=== PATIENT | female | born 1980 | race Caucasian/White ===

== ENCOUNTER 2018-08-29 20:06 | Emergency (ER) | payer MEDICAID, SELFPAY ==
[2018-08-29 20:07] VITALS: BP 152/96; PULSE 97; RESP 18; TEMP 36.3; O2SAT 100; BMI 20.2
--- NOTE | 2018-08-29 20:25 | CT_ITS ---
STUDY: CT ABDOMEN AND PELVIS WITHOUT CONTRAST REASON FOR EXAM: Female, 38 years old. Bilateral lower abdominal pain. History of pancreatitis, endometriosis and hysterectomy. RADIATION DOSAGE (If Supplied By Facility): CTDIvol = ( 6.08 ) mGy, DLP = ( 273.25 ) mGycm TECHNIQUE: Transaxial images were obtained from the dome of the diaphragm to the symphysis pubis without oral contrast, and without intravenous contrast. Sagittal and coronal images were reconstructed. Individualized dose optimization techniques were used for this CT. COMPARISON: None. FINDINGS: Lung bases: Unremarkable. Heart: Unremarkable. Liver: Unremarkable. Gallbladder/biliary ducts: Unremarkable. Pancreas: Unremarkable. Spleen: Unremarkable. Adrenal glands: Unremarkable. Kidneys/ureters/bladder: Distended urinary bladder. No abnormal urinary bladder wall thickening. Nondilated ureters. Minimal bilateral extrarenal pelvis. Symmetric bilateral noncontrast renal parenchyma. Uterus/adnexa/prostate: Hysterectomy. Adnexal regions appear physiologic. Large bowel/small bowel: Moderate constipation. No acute large bowel or small bowel process. Appendix: Unremarkable (axial image 100 series 2). Gastroesophageal junction/stomach: Unremarkable. Retroperitoneum/lymph nodes: No intra-abdominal free air. No ascites. No pathologically enlarged lymph nodes. Vascular: Unremarkable. Osseous structures: Minimal degenerative change. No acute process. Subcutaneous/soft tissues: Small fat-containing umbilical hernia. No acute process. CT/Abdomen/Pelvis without Cont IMPRESSION: No acute intra-abdominal/pelvic findings Moderate constipation Electronically Signed: Jesus Conteh DO at 21:26 EST Tel , Service support ,
--- NOTE | 2018-08-29 20:26 | ED.VISSUMM ---
- ER Visit Summary Date of Service: 08/29/18 Chief Complaint: Abdominal pain History of Present Illness: The patient is a 38 F who presents with abdominal pain that began today. Patient states her pain feels similar to prior episodes of pancreatitis. Patient states the pancreatitis was related to alcohol use and possibly the sludge in her gallbladder. Patient states her last drink was 4 weeks ago. Patient states the pain is constant and sharp. Patient states the pain is worse after eating. Patient states the pain radiates into her back. Patient admits to some nausea and vomiting. Patient states she had 3 episodes of vomiting today. Patient denies any hematemesis or coffee-ground emesis. Physical Examination: Vital signs are stable. Patient is afebrile. Patient is in no acute distress. Oral mucosa is pink and moist. Neck is supple. Trachea is midline. There is no JVD noted. Heart was regular rate and rhythm. Lungs are clear and equal bilateral. Abdomen is soft. Bowel sounds are normal. There is epigastric and right upper quadrant tenderness. There is no rebound or guarding noted. Skin is warm dry. Cranial nerves II through XII are intact. There are no focal motor or sensory deficits noted. The remaining physical exam is within normal limits. Test Results: CBC, comprehensive metabolic profile, lipase, and urinalysis were obtained and were all within normal limits. CT scan of the abdomen and pelvis was obtained. There is no acute intra-abdominal process noted. Emergency Department Course and Treatment: Patient was given IV fluids, Zofran, and morphine here. Patient was instructed to start with a bland diet and advance as tolerated. Patient was instructed to follow-up with her primary care physician in 5-7 days. Patient understood and was agreeable with the plan. All questions were answered. Disposition: Discharge home Impression: Epigastric abdominal pain This note was generated with [employer] dictation software. It may contain incorrect words, spelling, and punctuation that were not noted in review of the chart prior to signing ED Disposition - Plan for ED Patient: Disposition: Home or Assisted Living Diagnosis: Epigastric abdominal pain Instructions: ED Abdominal Pain Unkn Cause Referrals: NOT,DEFINED [NON-STAFF] - 3-5 Days
[2018-08-29] MEDS: 0.9% Normal Saline 1,000 ML 1000 ML IV (20:34)
[2018-08-29 20:35] LABS: Bacteria 0 SEEN /hpf (None Seen); Mucous, Urine 0 SEEN /hpf (<or=2+); Red Blood Cells-Urine 0 SEEN /hpf (0-5); Squamous Epithelial Cells - UA 0 SEEN /hpf (5-10); White Blood Cells 0 SEEN /hpf (0-5)
[2018-08-29] MEDS: Ondansetron 4 MG/2 ML Vial IV (20:35)
[2018-08-29] MEDS: Morphine 4 MG/ML Syringe IV ×2 (20:35→21:48)
[2018-08-29 20:37] LABS: Color, Urine Straw (Yellow); Glucose, Dipstick Normal (Normal); Ketone-Dipstick Negative (Negative); Leukocyte Esterase-Dipstick Negative /ul (Negative); Nitrite-Dipstick Negative (Negative); Occult Blood-Urine Negative /ul (Negative); Protein-Dipstick Negative (Negative); Urine Bilirubin Dipstick Negative (Negative); Urine Clarity Clear (Clear); Urine Urobilinogen Normal (Normal)
[2018-08-29 20:39] LABS: Absolute Lymphocyte Count 2.33 X10^3/ul (0.83-4.51); Basophil# 0.04 X10^3/uL; Basophil% 0.6 % (0-1); Eosinophils% 2.9 % (0-5); Hematocrit 39.3 % (37-47); Hemoglobin 12.9 g/dl (12.0-15.0); Lymphocyte # 2.33 X10^3/ul (4.0); Lymphocyte % 33.9 % (19-41); Mean Corp Hgb Conc 32.8 g/gl (32-36); Mean Corpuscular Hgb 28.6 pg (27.0-32.0); Mean Corpuscular Volume 87.1 fL (81-99); Mean Platelet Vol. 8.7 fl (6.2-12.0); Monocyte# 0.28 X10^3/uL; Monocyte% 4.1 % (0-10); Neutrophil # 4.02 X10^3/uL (2.7-7.7); Neutrophil % 58.4 % (47-70); POSITIVE COUNT NO; POSITIVE DIFFERENTIAL NO; POSITIVE MORPHOLOGY NO; Platelet Count 271 K/mm3 (150-450); RBC Distribution Width CV 14.5 % (11.6-14.6); Red Blood Count 4.51 M/mm3 (4.2-5.4); White Blood Count 6.9 K/mm3 (4.4-11.0)
[2018-08-29 21:00] LABS: Albumin, Serum 4.3 g/dL (3.2-5.0); BUN 9 mg/dL (7-18); BUN/Creat Ratio 8.5 RATIO (10-20); Creatinine, Serum 1.06 mg/dL (0.55-1.02); EST Glomerular Filtration Rate 61 mL/min (>60); Est Glom Filt Rate - Afr Amer 74 mL/min (>60); Estimated Creatinine Clearance 67.94 ml/min; Glucose 84 mg/dL (74-106); Protein, Total 7.7 g/dL (6.4-8.2)
[2018-08-29 21:01] LABS: ALB/GLOB Ratio 1.3 RATIO (0.9-2.4); AST(SGOT) 25 U/L (15-37); Alanine Aminotransfer ALT/SGPT 20 U/L (13-56); Alkaline Phosphatase 83 U/L (45-117); Anion Gap 6 (5-15); Calcium,Total 8.9 mg/dL (8.5-10.1); Chloride 102 mmol/L (98-107); Globulin 3.4 g/dL (2.2-4.2); Lipase 130 U/L (73-393); Potassium 4.3 mmol/L (3.5-5.1); Sodium Level 135 mmol/L (136-145)
[2018-08-29 22:26] VITALS: BP 125/78; PULSE 79; RESP 18; O2SAT 100
== END 2018-08-29 22:27 | disposition home or self-care (01) ==
PROVIDERS: Emergency Provider Emergency Medicine
DX: R10.13 Epigastric pain (principal); R11.2 Nausea with vomiting, unspecified; M54.9 Dorsalgia, unspecified; Z72.0 Tobacco use; Z79.899 Other long term (current) drug therapy; Z87.19 Personal history of other diseases of the digestive system; Z87.442 Personal history of urinary calculi
CPT/HCPCS: 74176; 80053; 81001; 83690; 85025; 96361; 96374; 96375; 96376; 99284; J7030; A4216; J2405

== ENCOUNTER 2018-08-31 20:06 | Emergency (ER) | payer MEDICAID, SELFPAY ==
[2018-08-31 20:07] VITALS: BP 128/88; PULSE 131; RESP 17; TEMP 37.2; O2SAT 100; BMI 18.2
[2018-08-31] MEDS: Ondansetron 4 MG/2 ML Vial IV ×2 (21:31→23:10)
[2018-08-31] MEDS: Morphine 4 MG/ML Syringe IV ×2 (21:31→23:10)
[2018-08-31 22:10] LABS: Absolute Lymphocyte Count 1.23 X10^3/ul (0.83-4.51); Absolute Neutrophil Count 4.7 X10^3/uL (2.0-7.7); Basophil# 0.03 X10^3/uL; Basophil% 0.5 % (0-1); Eosinophil# 0.09 X10^3/uL; Eosinophils% 1.4 % (0-5); Hematocrit 41.7 % (37-47); Hemoglobin 13.9 g/dl (12.0-15.0); Lymphocyte # 1.23 X10^3/ul (4.0); Lymphocyte % 19.1 % (19-41); Mean Corp Hgb Conc 33.3 g/gl (32-36); Mean Corpuscular Volume 87.1 fL (81-99); Mean Platelet Vol. 8.9 fl (6.2-12.0); Monocyte# 0.37 X10^3/uL; Monocyte% 5.8 % (0-10); POSITIVE COUNT NO; POSITIVE DIFFERENTIAL NO; POSITIVE MORPHOLOGY NO; Platelet Count 258 K/mm3 (150-450); RBC Distribution Width CV 14.4 % (11.6-14.6); Red Blood Count 4.79 M/mm3 (4.2-5.4); White Blood Count 6.4 K/mm3 (4.4-11.0)
[2018-08-31 22:27] LABS: ALB/GLOB Ratio 1.3 RATIO (0.9-2.4); AST(SGOT) 27 U/L (15-37); Alanine Aminotransfer ALT/SGPT 21 U/L (13-56); Albumin, Serum 4.6 g/dL (3.2-5.0); Alkaline Phosphatase 74 U/L (45-117); Anion Gap 8 (5-15); BUN 10 mg/dL (7-18); BUN/Creat Ratio 11.4 RATIO (10-20); Calcium,Total 9.1 mg/dL (8.5-10.1); Chloride 104 mmol/L (98-107); Creatinine, Serum 0.88 mg/dL (0.55-1.02); EST Glomerular Filtration Rate 76 mL/min (>60); Est Glom Filt Rate - Afr Amer 92 mL/min (>60); Estimated Creatinine Clearance 73.75 ml/min; Globulin 3.6 g/dL (2.2-4.2); Glucose 104 mg/dL (74-106); Lipase 95 U/L (73-393); Potassium 4.2 mmol/L (3.5-5.1); Protein, Total 8.2 g/dL (6.4-8.2); Sodium Level 137 mmol/L (136-145)
--- NOTE | 2018-08-31 22:46 | ED.RN ---
PT STILL UNABLE TO PROVIDE URINE SAMPLE.
[2018-08-31 23:17] LABS: Mucous, Urine 0 SEEN /hpf (<or=2+)
[2018-08-31 23:21] LABS: Internal QC Validated? YES +Cl - CLEAR BKGD; Pregnancy, Urine Negative Negative
[2018-08-31 23:23] LABS: Color, Urine Yellow (Yellow); Glucose, Dipstick Normal (Normal); Ketone-Dipstick 15 mg/dl (Negative); Leukocyte Esterase-Dipstick 25 /ul (Negative); Nitrite-Dipstick Negative (Negative); Occult Blood-Urine 150 /ul (Negative); Protein-Dipstick 15 mg/dl (Negative); Urine Bilirubin Dipstick Negative (Negative); Urine Clarity Clear (Clear); Urine Urobilinogen Normal (Normal); Urine pH 6.5 (5.0 - 8.0)
[2018-08-31 23:54] LABS: Bacteria RARE /hpf (None Seen); Red Blood Cells-Urine 25-50 SEEN /hpf (0-5); Squamous Epithelial Cells - UA 0-5 SEEN /hpf (5-10); White Blood Cells 0-5 SEEN /hpf (0-5)
[2018-09-01 00:17] VITALS: BP 111/64; PULSE 84; RESP 14; O2SAT 100
--- NOTE | 2018-09-02 18:27 | ED.VISSUMM ---
- ER Visit Summary Date of Service: 09/02/18 Chief Complaint: Abdominal pain History of Present Illness: The patient is a 38 F who presents with abdominal pain that became worse today. Patient was seen here recently for abdominal pain. Patient states her pain is similar to prior episode of pancreatitis. Patient states the pain is over the epigastric and right upper quadrant areas. Patient admits to some nausea and vomiting. Patient states she has had some coffee-ground emesis and melena recently. She states she gets dizzy with standing. Patient admits to a fever of 100.8 at home. Patient also admits to some chills and sweats. Patient states her pain radiates straight into her back. Physical Examination: Vital signs are stable. Patient is afebrile. Patient is in no acute distress. Oral mucosa is pink and moist. Neck is supple. Trachea is midline. There is no JVD noted. Heart was regular rate and rhythm. Lungs are clear and equal bilateral. Abdomen is soft. Bowel sounds are normal. There is tenderness over the epigastric and right upper quadrant areas. There is no guarding noted. Skin is warm dry. Cranial nerves II through XII are intact. There are no focal motor or sensory deficits noted. The remaining physical exam is within normal limits. Test Results: CBC, comprehensive metabolic profile, and lipase were obtained and were normal. Emergency Department Course and Treatment: Patient was given IV fluids, morphine, and Zofran. Patient was given a repeat dose of morphine and Zofran. Patient was instructed to follow-up with her primary care physician in 5-7 days for further evaluation of her abdominal pain. Patient understood and was agreeable with the plan. All questions were answered. Disposition: Discharge home Impression: Epigastric abdominal pain This note was generated with [employer] dictation software. It may contain incorrect words, spelling, and punctuation that were not noted in review of the chart prior to signing ED Disposition - Plan for ED Patient: Disposition: Home or Assisted Living Instructions: ED Abdominal Pain Unkn Cause Referrals: Vanessa Abernathy DO [Primary Care Provider] -
== END 2018-09-01 00:18 | disposition home or self-care (01) ==
PROVIDERS: Emergency Provider Emergency Medicine
DX: R10.13 Epigastric pain (principal); R11.2 Nausea with vomiting, unspecified; R50.9 Fever, unspecified; M54.9 Dorsalgia, unspecified; F17.210 Nicotine dependence, cigarettes, uncomplicated; Z79.899 Other long term (current) drug therapy; Z87.19 Personal history of other diseases of the digestive system
CPT/HCPCS: 80053; 81001; 81025; 82274; 83690; 85025; 96374; 96375; 96376; 99285; A4216; J2405

== ENCOUNTER 2018-09-05 00:16 | Emergency (ER) | payer MEDICAID, SELFPAY ==
[2018-09-05 00:17] VITALS: BP 138/85; PULSE 88; RESP 18; TEMP 37.1; O2SAT 98; BMI 18.8
[2018-09-05 00:25] VITALS: PULSE 86; RESP 18; TEMP 36.6; O2SAT 98
--- NOTE | 2018-09-05 00:32 | CT_ITS ---
STUDY: CT ABDOMEN AND PELVIS WITHOUT CONTRAST REASON FOR EXAM: Female, 38 years old. Low back pain. RADIATION DOSAGE (If Supplied By Facility): CTDIvol = ( 6.10 ) mGy, DLP = ( 281.77 ) mGycm TECHNIQUE: Transaxial images were obtained from the dome of the diaphragm to the symphysis pubis without oral contrast, and without intravenous contrast. Sagittal and coronal images were reconstructed. Individualized dose optimization techniques were used for this CT. COMPARISON: CT of the abdomen and pelvis dated August 29, 2018. FINDINGS: There is bilateral basilar dependent atelectasis. No pleural effusions are visualized. The visualized portions of the heart are within normal limits. Normal liver. Normal gallbladder and extrahepatic biliary system. Normal spleen. Normal pancreas. Normal bilateral adrenal glands. Normal right kidney. Normal left kidney. Normal visualized stomach. There is no evidence for dilated bowel, ascites or pneumoperitoneum. Small bowel has a grossly normal appearance. Stool is visible throughout the colon with scattered diverticula. The appendix is visualized and appears normal. Normal abdominal aorta. There is venous distention of the inferior vena cava (IVC). Normal retroperitoneum. Normal urinary bladder. There is absence of the uterus consistent with a prior hysterectomy. Normal abdominal wall. Normal osseous structures. CT/Abdomen/Pelvis without Cont IMPRESSION: No CT evidence of acute intra-abdominal disease. Electronically Signed: Jazmín Valenzuela MD at 2:35 EST , Service support ,
[2018-09-05] MEDS: 0.9% Normal Saline 1,000 ML 1000 ML IV (00:55)
[2018-09-05] MEDS: proMETHazine 25 MG/ML Syringe 12.5 MG IV (00:55)
[2018-09-05] MEDS: Morphine 4 MG/ML Syringe IV (00:57)
--- NOTE | 2018-09-05 01:01 | ED.DCSUM_ITS ---
- ER Visit Summary Date of Service: 09/05/18 Chief Complaint: Flank pain, dysuria History of Present Illness: The patient is a 38 F with history of pancreatitis presents with flank pain and dysuria. The patient has been seen here 3 times in the past week for vague complaints. She states that today, she began to develop pain in her right flank that radiated into her right pelvis. She noted some blood in her urine and had fever. She is also been nauseated. She does have history of prior kidney stone. She states that she never required lithotripsy or stenting. She has had prior hysterectomy and laparoscopic surgery for endometriosis. She is otherwise been in her normal state of health. She denies any recent travel. She denies any alcohol use. Physical Examination: Vital signs reviewed General: Well-nourished, well-developed Head: Normocephalic, atraumatic Eyes: Pupils equal and reactive, extraocular muscles intact Neck, supple, no lymphadenopathy Heart: Regular rate and rhythm Respiratory: No distress, clear bilaterally Abdomen: Soft, nontender, nondistended, no peritoneal signs Back: Nontender Extremities: Nontender, no edema, no cords Skin: Normal color no rash Neuro: Alert and oriented, no focal or lateralizing deficits Test Results: [] Emergency Department Course and Treatment: This is the patient's third visit for abdominal complaints. IV was established. The patient was given analgesics and antiemetics. Screening labs are obtained were unremarkable. Urine did show blood, but there is no evidence of infection. The patient underwent CT imaging which does not show any kidney stone. With the patient's history, and non- verifiable pain, I was concerned. I was able to actually review her chart through other hospital systems. The patient has had multiple visits for non-verifiable pain. She has had 46 separate prescriptions over the past 2 years for narcotics. Given her negative workup, I do feel that she is safe for outpatient therapy. I do have concern for drug-seeking behavior. The patient will be discharged home. Treatment Plan: [] Disposition: Discharge Impression: 1. Left flank pain This note was generated with [employer] dictation software. It may contain incorrect words, spelling, and punctuation that were not noted in review of the chart prior to signing ED Disposition - Plan for ED Patient: Disposition: Home or Assisted Living Instructions: ED Flank Pain Uncertain Cause Referrals: Vanessa Abernathy DO [Primary Care Provider] -
[2018-09-05 01:07] LABS: Bacteria 0 SEEN /hpf (None Seen); Mucous, Urine 0 SEEN /hpf (<or=2+); Squamous Epithelial Cells - UA 0 SEEN /hpf (5-10); White Blood Cells 0 SEEN /hpf (0-5)
[2018-09-05 01:22] LABS: Color, Urine Yellow (Yellow); Glucose, Dipstick Normal (Normal); Ketone-Dipstick Negative (Negative); Leukocyte Esterase-Dipstick Negative /ul (Negative); Nitrite-Dipstick Negative (Negative); Occult Blood-Urine 250 /ul (Negative); Protein-Dipstick Negative (Negative); Specific Gravity, Urine 1.015 (1.002-1.030); Urine Bilirubin Dipstick Negative (Negative); Urine Clarity Sl. Cloudy (Clear); Urine Urobilinogen Normal (Normal)
[2018-09-05 01:26] LABS: Red Blood Cells-Urine 10-25 SEEN /hpf (0-5)
[2018-09-05 01:26] LABS: Absolute Lymphocyte Count 1.85 X10^3/ul (0.83-4.51); Absolute Neutrophil Count 3.3 X10^3/uL (2.0-7.7); Basophil# 0.05 X10^3/uL; Basophil% 0.9 % (0-1); Eosinophil# 0.15 X10^3/uL; Eosinophils% 2.6 % (0-5); Hematocrit 33.8 % (37-47); Hemoglobin 11.5 g/dl (12.0-15.0); Lymphocyte # 1.85 X10^3/ul (4.0); Lymphocyte % 31.9 % (19-41); Mean Corpuscular Hgb 29.9 pg (27.0-32.0); Mean Corpuscular Volume 87.8 fL (81-99); Mean Platelet Vol. 10.5 fl (6.2-12.0); Monocyte# 0.41 X10^3/uL; Monocyte% 7.1 % (0-10); Neutrophil # 3.33 X10^3/uL (2.7-7.7); Neutrophil % 57.3 % (47-70); Platelet Count 214 K/mm3 (150-450); RBC Distribution Width CV 14.4 % (11.6-14.6); RBC Distribution Width SD 45.4 fl (35.1-43.9); Red Blood Count 3.85 M/mm3 (4.2-5.4); White Blood Count 5.8 K/mm3 (4.4-11.0)
[2018-09-05 01:29] LABS: POSITIVE COUNT NO; POSITIVE DIFFERENTIAL NO; POSITIVE MORPHOLOGY NO
[2018-09-05 01:51] LABS: ALB/GLOB Ratio 1.3 RATIO (0.9-2.4); AST(SGOT) 32 U/L (15-37); Alanine Aminotransfer ALT/SGPT 19 U/L (13-56); Alkaline Phosphatase 81 U/L (45-117); Anion Gap 9 (5-15); BUN 5 mg/dL (7-18); BUN/Creat Ratio 5.6 RATIO (10-20); Calcium,Total 8.5 mg/dL (8.5-10.1); Chloride 107 mmol/L (98-107); Creatinine, Serum 0.89 mg/dL (0.55-1.02); EST Glomerular Filtration Rate 75 mL/min (>60); Est Glom Filt Rate - Afr Amer 91 mL/min (>60); Estimated Creatinine Clearance 75.43 ml/min; Glucose 104 mg/dL (74-106); Lipase 156 U/L (73-393); Potassium 4.5 mmol/L (3.5-5.1); Sodium Level 141 mmol/L (136-145)
[2018-09-05 02:32] VITALS: PULSE 86; RESP 16; O2SAT 98
[2018-09-05 03:00] VITALS: BP 111/75; PULSE 75; RESP 16; O2SAT 98
== END 2018-09-05 03:04 | disposition home or self-care (01) ==
LOC: ED 00:52
PROVIDERS: Emergency Provider Emergency Medicine
DX: R10.9 Unspecified abdominal pain (principal); R30.0 Dysuria; R31.9 Hematuria, unspecified; R35.0 Frequency of micturition; R11.0 Nausea; Z79.899 Other long term (current) drug therapy; Z87.19 Personal history of other diseases of the digestive system; Z87.442 Personal history of urinary calculi
CPT/HCPCS: 74176; 80053; 81001; 83690; 85025; 96361; 96374; 96375; 99284; J7030; A4216

== ENCOUNTER 2018-09-09 20:48 | Emergency (ER) | payer MEDICAID, SELFPAY ==
[2018-09-09 20:49] VITALS: BP 125/90; PULSE 95; RESP 16; TEMP 36.9; O2SAT 97; BMI 19.5
[2018-09-09 21:13] LABS: Bacteria 0 SEEN /hpf (None Seen); Mucous, Urine 0 SEEN /hpf (<or=2+); Squamous Epithelial Cells - UA 0 SEEN /hpf (5-10)
[2018-09-09 21:24] LABS: Color, Urine Yellow (Yellow); Glucose, Dipstick Normal (Normal); Ketone-Dipstick Negative (Negative); Leukocyte Esterase-Dipstick Negative /ul (Negative); Nitrite-Dipstick Negative (Negative); Occult Blood-Urine 250 /ul (Negative); Protein-Dipstick 15 mg/dl (Negative); Urine Bilirubin Dipstick Negative (Negative); Urine Clarity Cloudy (Clear); Urine Urobilinogen Normal (Normal)
[2018-09-09 21:25] LABS: Absolute Lymphocyte Count 2.21 X10^3/ul (0.83-4.51); Absolute Neutrophil Count 6.3 X10^3/uL (2.0-7.7); Basophil# 0.05 X10^3/uL; Basophil% 0.5 % (0-1); Eosinophil# 0.14 X10^3/uL; Eosinophils% 1.5 % (0-5); Hematocrit 38.2 % (37-47); Hemoglobin 12.4 g/dl (12.0-15.0); Lymphocyte # 2.21 X10^3/ul (4.0); Lymphocyte % 23.8 % (19-41); Mean Corp Hgb Conc 32.5 g/gl (32-36); Mean Corpuscular Hgb 28.5 pg (27.0-32.0); Mean Corpuscular Volume 87.8 fL (81-99); Mean Platelet Vol. 8.6 fl (6.2-12.0); Monocyte# 0.53 X10^3/uL; Monocyte% 5.7 % (0-10); Neutrophil # 6.33 X10^3/uL (2.7-7.7); Neutrophil % 68.4 % (47-70); POSITIVE COUNT NO; POSITIVE DIFFERENTIAL NO; POSITIVE MORPHOLOGY NO; Platelet Count 264 K/mm3 (150-450); RBC Distribution Width CV 14.5 % (11.6-14.6); RBC Distribution Width SD 46.7 fl (35.1-43.9); Red Blood Count 4.35 M/mm3 (4.2-5.4); White Blood Count 9.3 K/mm3 (4.4-11.0)
[2018-09-09 21:51] LABS: Red Blood Cells-Urine > 100 SEEN /hpf (0-5); White Blood Cells 0-5 SEEN /hpf (0-5)
[2018-09-09 22:01] LABS: Anion Gap 7 (5-15); BUN 11 mg/dL (7-18); BUN/Creat Ratio 12.7 RATIO (10-20); Calcium,Total 8.7 mg/dL (8.5-10.1); Chloride 106 mmol/L (98-107); Creatinine, Serum 0.87 mg/dL (0.55-1.02); EST Glomerular Filtration Rate 77 mL/min (>60); Est Glom Filt Rate - Afr Amer 93 mL/min (>60); Estimated Creatinine Clearance 79.76 ml/min; Glucose 95 mg/dL (74-106); Potassium 4.1 mmol/L (3.5-5.1); Sodium Level 138 mmol/L (136-145)
--- NOTE | 2018-09-09 22:41 | CT_ITS ---
STUDY: CT ABDOMEN AND PELVIS WITHOUT CONTRAST REASON FOR EXAM: Female, 38 years old. Right flank pain. RADIATION DOSAGE (If Supplied By Facility): CTDIvol = ( 6.05 ) mGy, DLP = ( 276.51 ) mGycm TECHNIQUE: Transaxial images were obtained from the dome of the diaphragm to the symphysis pubis without oral contrast, and without intravenous contrast. Sagittal and coronal images were reconstructed. Individualized dose optimization techniques were used for this CT. COMPARISON: September 05, 2018 FINDINGS: The visualized lung bases are unremarkable. The visualized portions of the heart are within normal limits. Please note the lack of intravenous contrast limits evaluation of solid visceral organs. Normal liver. The gallbladder is contracted. Normal spleen. Normal pancreas. Normal bilateral adrenal glands. Normal right kidney. Normal left kidney. Normal visualized stomach. Normal small intestine. Normal colon. The appendix is visualized and appears normal. Normal abdominal aorta. Normal inferior vena cava. Normal retroperitoneum. Normal urinary bladder. Normal abdominal wall. Normal osseous structures. CT/Abdomen/Pelvis without Cont IMPRESSION: No acute intra-abdominal process. Electronically Signed: Letty Reese MD at 23:12 EST Tel , Service support ,
[2018-09-09] MEDS: Morphine 4 MG/ML Syringe IV (23:02)
[2018-09-09] MEDS: Ondansetron 4 MG/2 ML Vial IV (23:02)
[2018-09-09] MEDS: Morphine 2 MG/ML Syringe IV (23:42)
--- NOTE | 2018-09-10 00:04 | ED.VISSUMM ---
- ER Visit Summary Date of Service: 09/10/18 Chief Complaint: Right flank pain History of Present Illness: The patient is a 38 F who reports right flank pain since yesterday. Tonight the pain was more severe and moved down into the groin. She does report hematuria. She has had one prior kidney stone that she was able to pass on her own. Patient has had prior hysterectomy. Physical Examination: Vital signs unremarkable. Patient sitting upright in bed. She appears uncomfortable but no distress. Head neck examination normal. Heart is regular rate and rhythm. Lungs sounds are clear. Abdomen is soft with diffuse abdominal tenderness, worse in the right lower quadrant. She does have right CVA tenderness. No overlying skin change noted. Test Results: CBC and chemistry studies are unremarkable. Urinalysis shows greater than 100 red blood cells. No sign of infection. CT flank is unremarkable. Emergency Department Course and Treatment: Patient was given morphine, Zofran, and IV fluids. She reports an allergy to Toradol and NSAIDs. On repeat evaluation patient states the pain in her back is definitely let up, but she was still having spasms in the right lower quadrant. She was given another small dose of morphine. At this time patient's pain is improved. I discussed with her that I believe she recently passed a stone and is still having some spasm of the ureter. She will be given Percocet and Zofran for home. She will be referred to urology for follow-up as needed. Treatment Plan: [] Disposition: Discharge Impression: Recently passed kidney stone This note was generated with [employer] dictation software. It may contain incorrect words, spelling, and punctuation that were not noted in review of the chart prior to signing ED Disposition - Plan for ED Patient: Referrals: Vanessa Abernathy DO [Primary Care Provider] -
--- NOTE | 2018-09-10 00:06 | ED.DEP ---
ED Disposition - Plan for ED Patient: Disposition: Home or Assisted Living Instructions: ED Stone Renal Passed Prescriptions: Oxycodone HCl/Acetaminophen [Percocet 5/325] 1 tablet PO Q6H PRN PRN 3 Days #10 tablet PRN Reason: Pain Ondansetron [Zofran Odt] 4 mg PO Q8H PRN PRN #10 tablet PRN Reason: Nausea Referrals: Jesus Flynn MD [STAFF PHYSICIAN] - As Needed
[2018-09-10] MEDS: oxyCODONE 5 MG Tablet PO ×2 (00:25→00:26)
[2018-09-10] MEDS: Ondansetron ODT 4 MG Tablet PO ×2 (00:27)
== END 2018-09-10 00:31 | disposition home or self-care (01) ==
PROVIDERS: Emergency Medicine; Emergency Provider Emergency Medicine
DX: N20.0 Calculus of kidney (principal); R31.9 Hematuria, unspecified; Z72.0 Tobacco use; Z79.899 Other long term (current) drug therapy; Z87.19 Personal history of other diseases of the digestive system; Z87.442 Personal history of urinary calculi
CPT/HCPCS: 74176; 80048; 81001; 85025; 96374; 96375; 96376; 99283; A4216; J2405

== ENCOUNTER 2018-09-12 19:10 | Emergency (ER) | payer MEDICAID, SELFPAY ==
[2018-09-12 19:12] VITALS: BP 154/76; PULSE 96; RESP 17; TEMP 36.6; O2SAT 98; O2SAT 99; BMI 18.7
--- NOTE | 2018-09-12 19:21 | ED.VIS.GEN ---
History of Present Illness Chief Complaint: Cough Detail of Chief Complaint: Runny nose, chest discomfort, productive sputum Informant: Patient Onset: Yesterday Context: Sudden Onset Timing: Continuous Quality: Burning chest pain, productive cough and flulike symptoms Location: Predominately respiratory Current Severity: Mild Maximum Severity: Moderate Worsened by: Coughing and breathing Relieved by: Nothing Associated Symptoms: Temperature 101.0?F, headache, myalgias Narrative: Patient is a 38-year-old female who is a smoker. She is trying to quit. She is down to quarter pack per day. She reports global headache. She denies photophobia, neck pain or neck stiffness. She denies history of PE or DVT. She denies leg pain, swelling discoloration. She has no risk factors for V TE. Prior similar symptoms: No Recent Illness/Hospitalization: No - Past Medical History (1) Depression Status: Chronic Past Medical History - Allergies and Home Meds Allergies/Adverse Reactions: Allergies ketorolac [From Toradol] Allergy (Verified 09/12/18 19:11) Itching Primary Care Physician: Vanessa Abernathy DO [Primary Care Provider] - Prior records reviewed: Yes Past Medical History: None Surgical History: noncontributory Smoking Status: Current every day smoker Alcohol: None Drugs: None Review of Systems General: Reports: Chills, Fever, Malaise. Denies: Sweats Eyes: Denies: Visual changes - bilaterally, Blurred Vision - bilaterally, Diplopia ENT: Denies: Bilateral ear pain, Rhinorrhea, Sore throat Cardiovascular: Reports: Chest pain. Denies: Palpitations Respiratory: Reports: Cough, Sputum. Denies: Dyspnea, Dyspnea on exertion, Orthopnea, Paroxysmal nocturnal dyspnea Gastrointestinal: Denies: Abdominal pain, Nausea, Vomiting, Diarrhea, Melena, Hematochezia Genitourinary: Denies: Dysuria, Hematuria, Frequency Musculoskeletal: Reports: Myalgias. Denies: Back pain, Extremity Pain Skin: Denies: Rash, Wounds Neurological: Reports: Headache. Denies: Weakness, Numbness Hematologic: Denies: Easy bruising, Easy bleeding Allergy: Denies: Uticaria Physical Exam Vital Signs/Narrative: Vital Signs Temp Pulse Resp BP Pulse Ox 09/12/18 19:12 97.9 F 96 17 154/76 H 98 Inital Vital Signs reviewed: Yes General: Well nourished, Well developed, No Acute Distress, - - Patient has significant rhinorrhea and had to blow her nose several times during examination. Head: Normocephalic, Atraumatic Eyes: Perrl, EOMI. Negative for: Pale conjunctiva, Scleral icterus ENT: Moist mucous membranes, TM's clear, Nasal congestion. Negative for: No rhinorrhea Neck: Supple, Nontender, No lymphadenopathy, No JVD, - - Trachea is midline and there is no stridor Cardiovascular: Regular rate, Regular rhythm, No murmurs, Normal S1, Normal S2 Respiratory: No distress, CTA bilaterally, Chest nontender. Negative for: Decreased Air Movement Neurological: Alert, Oriented x3, Cranial nerves II-XII grossly intact, Normal Strength, Normal Sensation, Normal Gait Psychological: Normal affect Diagnostic/Tx/Re-eval - Medical Decision Making And flulike symptoms we will obtain rapid flu screen. If positive will discuss risk benefits of Tamiflu if negative symptomatic treatment. Since symptoms started less than 24 hours ago even though she is a smoker and reports productive cough antibiotics are not indicated. Of note heart rate, respiratory rate, temperature and pulse ox are all normal. Based on published studies with normal vital signs were urologic imaging is not indicated and introduced studies that I am aware of patients who had normal vital signs did not have an infiltrate on x-ray. Patient is complaining of chest pain. She was not performed during the history and physical this is secondary to viral infection. There is nothing that can be done that will alleviate the pain. Based on her allergies she was given Tylenol since she drove herself and in my professional medical opinion opiate analgesia is not warranted. Drug of choice would be an anti-inflammatory since this is a inflammatory process. ED Disposition - Plan for ED Patient: Disposition: Home or Assisted Living Diagnosis: Viral upper respiratory tract infection with cough, Febrile respiratory illness Instructions: ED Upper Resp Infec No Abx Tx Referrals: Vanessa Abernathy DO [Primary Care Provider] - 10-14 Days if not better Additional Instructions: Infection. The pain you are experiencing is secondary to inflammation of your airway and the treatment of choice is an anti-inflammatory. You list reaction to Toradol/ketorolac. If you do not experience reaction to ibuprofen or Aleve, Naprosyn, I would recommend taking either 1 of those medications otherwise your only option presently is Tylenol. Because you are a smoker you may have a cough up to 4 weeks.
[2018-09-12] MEDS: Acetaminophen 325 MG Tablet 650 MG PO (20:16)
[2018-09-12 20:29] VITALS: RESP 18
== END 2018-09-12 20:30 | disposition home or self-care (01) ==
PROVIDERS: Emergency Provider Emergency Medicine
DX: J06.9 Acute upper respiratory infection, unspecified (principal); F32.9 Major depressive disorder, single episode, unspecified; F17.200 Nicotine dependence, unspecified, uncomplicated; Z79.899 Other long term (current) drug therapy
CPT/HCPCS: 87804; 99282

== ENCOUNTER 2018-09-19 00:59 | Emergency (ER) | payer MEDICAID, SELFPAY ==
[2018-09-19 01:01] VITALS: BP 133/75; PULSE 95; RESP 16; TEMP 37.4; O2SAT 99; BMI 19.4
--- NOTE | 2018-09-19 01:24 | ED.DCSUM_ITS ---
- ER Visit Summary Date of Service: 09/19/18 Chief Complaint: Epigastric abdominal pain History of Present Illness: The patient is a 38 F 3 of pancreatitis multiple times in the last year due to alcoholism. Patient states she drank a bottle of wine 2 days ago. Started having abdominal pain at 10 AM this morning. Associated with nausea vomiting. No hematemesis nor melena. States the pain goes straight to her back similar to her prior pancreatitis. She denies any dysuria. Physical Examination: Middle-aged female. Vital signs stable temperature 99.4. She does not look septic or toxic. H EENT exam mildly dry mixed membranes. Neck nontender no lymphadenopathy. Lungs clear to auscultation bilaterally. Heart regular rate and rhythm no murmur. Abdomen soft. Nondistended. Normal bowel sounds. No peritoneal signs. Tender in the periumbilical and epigastric region. No Griggs sign no McBurney's point tenderness. No hernias or masses. No signs of obstruction. Patient is moving all 4 extremities. Neurovascular intact. Calves nontender. Back nontender. Neurologically she is awake and alert with no focal motor deficits. Test Results: CBC shows a white count of 6. Hemoglobin 11.5. Electrolytes are normal. Normal creatinine and gap. Liver enzymes are normal lipase is normal at 102. Emergency Department Course and Treatment: Patient treated with a liter normal saline. IV Zofran. IV morphine for pain. Treatment Plan: Repeat exam patient is doing well at 0 2:51 AM. Abdomen is benign. She and I discussed her test results. She will use [id number] Prilosec or Pepcid as needed. Decrease alcohol use. Consider detox. Disposition: Discharge Impression: Acute abdominal pain uncertain etiology History of pancreatitis History of alcohol abuse This note was generated with [employer] dictation software. It may contain incorrect words, spelling, and punctuation that were not noted in review of the chart prior to signing ED Disposition - Plan for ED Patient: Referrals: Vanessa Abernathy DO [Primary Care Provider] -
[2018-09-19] MEDS: Morphine 4 MG/ML Syringe IV (01:39)
[2018-09-19] MEDS: Ondansetron 4 MG/2 ML Vial IV ×2 (01:39→02:56)
[2018-09-19] MEDS: 0.9% Normal Saline 1,000 ML 1000 ML IV (01:40)
[2018-09-19 01:55] LABS: Absolute Neutrophil Count 3.1 X10^3/uL (2.0-7.7); Basophil# 0.02 X10^3/uL; Basophil% 0.3 % (0-1); Eosinophils% 2.9 % (0-5); Hematocrit 34.8 % (37-47); Hemoglobin 11.5 g/dl (12.0-15.0); Lymphocyte % 45.7 % (19-41); Mean Corpuscular Hgb 28.5 pg (27.0-32.0); Mean Corpuscular Volume 86.4 fL (81-99); Mean Platelet Vol. 8.7 fl (6.2-12.0); Monocyte% 5.9 % (0-10); Neutrophil # 3.05 X10^3/uL (2.7-7.7); Neutrophil % 45.1 % (47-70); POSITIVE COUNT NO; POSITIVE DIFFERENTIAL NO; POSITIVE MORPHOLOGY NO; Platelet Count 274 K/mm3 (150-450); RBC Distribution Width CV 14.4 % (11.6-14.6); RBC Distribution Width SD 45.4 fl (35.1-43.9); Red Blood Count 4.03 M/mm3 (4.2-5.4); White Blood Count 6.8 K/mm3 (4.4-11.0)
[2018-09-19 02:26] LABS: AST(SGOT) 20 U/L (15-37); Alanine Aminotransfer ALT/SGPT 18 U/L (13-56); Albumin, Serum 4.2 g/dL (3.2-5.0); Alkaline Phosphatase 74 U/L (45-117); Anion Gap 4 (5-15); BUN 8 mg/dL (7-18); BUN/Creat Ratio 8.8 RATIO (10-20); Bilirubin, Direct 0.08 mg/dL (0.00-0.30); Calcium,Total 8.3 mg/dL (8.5-10.1); Chloride 103 mmol/L (98-107); Creatinine, Serum 0.91 mg/dL (0.55-1.02); EST Glomerular Filtration Rate 73 mL/min (>60); Est Glom Filt Rate - Afr Amer 88 mL/min (>60); Estimated Creatinine Clearance 75.87 ml/min; Globulin 2.8 g/dL (2.2-4.2); Glucose 98 mg/dL (74-106); Lipase 102 U/L (73-393); Potassium 3.5 mmol/L (3.5-5.1); Sodium Level 136 mmol/L (136-145)
--- NOTE | 2018-09-19 02:54 | ED.DEP ---
ED Disposition - Plan for ED Patient: Disposition: Home or Assisted Living Instructions: ED Abdominal Pain Unkn Cause Referrals: Vanessa Abernathy DO [Primary Care Provider] - 3-5 Days if not improving Additional Instructions: Your lab work was normal tonight. No signs of pancreatitis. This may be secondary to alcohol induced gastritis or inflammation of your stomach. You can use [id number] Prilosec or Pepcid to treat that. Decrease your alcohol use. Consider alcohol counseling or detox. Follow-up with your doctor as needed.
[2018-09-19] MEDS: Mag Hydrox/Al Hydrox/Simeth 30 ML UDC PO (02:56)
[2018-09-19 02:58] VITALS: BP 126/88; PULSE 72; RESP 16; O2SAT 100
== END 2018-09-19 03:05 | disposition home or self-care (01) ==
PROVIDERS: Emergency Provider Emergency Medicine
DX: R10.13 Epigastric pain (principal); R11.2 Nausea with vomiting, unspecified; F10.21 Alcohol dependence, in remission; Z72.0 Tobacco use; Z79.899 Other long term (current) drug therapy; Z87.19 Personal history of other diseases of the digestive system; Z87.442 Personal history of urinary calculi
CPT/HCPCS: 80048; 80076; 83690; 85025; 96361; 96374; 96375; 96376; 99284; J7030; A4216; J2405

== ENCOUNTER 2018-09-27 20:55 | Emergency (ER) | payer MEDICAID, SELFPAY ==
[2018-09-27 20:56] VITALS: BP 94/67; PULSE 95; RESP 18; TEMP 37.4; O2SAT 99; BMI 18.8
[2018-09-27 21:54] LABS: Bacteria 0 SEEN /hpf (None Seen); Red Blood Cells-Urine 0 SEEN /hpf (0-5); White Blood Cells 0 SEEN /hpf (0-5)
[2018-09-27 22:00] LABS: Color, Urine Yellow (Yellow); Glucose, Dipstick Normal (Normal); Ketone-Dipstick Negative (Negative); Leukocyte Esterase-Dipstick Negative /ul (Negative); Nitrite-Dipstick Negative (Negative); Occult Blood-Urine Negative /ul (Negative); Protein-Dipstick Negative (Negative); Urine Bilirubin Dipstick Negative (Negative); Urine Clarity Sl. Cloudy (Clear); Urine Urobilinogen Normal (Normal)
[2018-09-27 22:10] LABS: Mucous, Urine RARE /hpf (<or=2+); Squamous Epithelial Cells - UA 0-5 SEEN /hpf (5-10)
[2018-09-27 22:12] LABS: Absolute Lymphocyte Count 1.87 X10^3/ul (0.83-4.51); Absolute Neutrophil Count 6.3 X10^3/uL (2.0-7.7); Basophil# 0.04 X10^3/uL; Basophil% 0.5 % (0-1); Eosinophil# 0.06 X10^3/uL; Eosinophils% 0.7 % (0-5); Hematocrit 38.2 % (37-47); Hemoglobin 12.7 g/dl (12.0-15.0); Lymphocyte # 1.87 X10^3/ul (4.0); Lymphocyte % 21.8 % (19-41); Mean Corp Hgb Conc 33.2 g/gl (32-36); Mean Corpuscular Hgb 28.6 pg (27.0-32.0); Mean Platelet Vol. 8.7 fl (6.2-12.0); Monocyte# 0.34 X10^3/uL; Neutrophil # 6.25 X10^3/uL (2.7-7.7); Neutrophil % 72.9 % (47-70); Platelet Count 267 K/mm3 (150-450); RBC Distribution Width CV 14.4 % (11.6-14.6); RBC Distribution Width SD 45.4 fl (35.1-43.9); Red Blood Count 4.44 M/mm3 (4.2-5.4); White Blood Count 8.6 K/mm3 (4.4-11.0)
[2018-09-27 22:13] LABS: POSITIVE COUNT NO; POSITIVE DIFFERENTIAL NO; POSITIVE MORPHOLOGY NO
[2018-09-27 22:24] LABS: Anion Gap 5 (5-15); BUN 13 mg/dL (7-18); BUN/Creat Ratio 14.7 RATIO (10-20); Calcium,Total 8.8 mg/dL (8.5-10.1); Chloride 105 mmol/L (98-107); Creatinine, Serum 0.88 mg/dL (0.55-1.02); EST Glomerular Filtration Rate 75 mL/min (>60); Est Glom Filt Rate - Afr Amer 91 mL/min (>60); Estimated Creatinine Clearance 76.28 ml/min; Glucose 98 mg/dL (74-106); Sodium Level 138 mmol/L (136-145)
[2018-09-27 22:28] LABS: Pregnancy, Serum, hCG Quali. NEGATIVE Negative (0-9 Nonpreg)
[2018-09-28] MEDS: Mag Hydrox/Al Hydrox/Simeth 30 ML UDC PO (00:10)
[2018-09-28] MEDS: proMETHazine 25 MG/ML Syringe 12.5 MG IV (00:10)
[2018-09-28 00:14] LABS: AST(SGOT) 26 U/L (15-37); Alanine Aminotransfer ALT/SGPT 24 U/L (13-56); Albumin, Serum 4.4 g/dL (3.2-5.0); Alkaline Phosphatase 93 U/L (45-117); Bilirubin, Direct 0.08 mg/dL (0.00-0.30); Globulin 3.2 g/dL (2.2-4.2); Protein, Total 7.6 g/dL (6.4-8.2)
[2018-09-28 00:20] LABS: Lipase 144 U/L (73-393)
[2018-09-28 00:37] VITALS: BP 110/70; PULSE 79; RESP 16; TEMP 36.7; O2SAT 98
--- NOTE | 2018-09-28 00:46 | ED.VISSUMM ---
- ER Visit Summary Date of Service: 09/28/18 Chief Complaint: Abdominal pain History of Present Illness: The patient is a 38 F who presents with abdominal pain. Began today. She describes it as sharp. It is epigastric and radiates through to the back. Currently she rates it as 7 out of 10. She also reports nausea with 2 episodes of vomiting. 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 She did drink alcohol 2 nights ago. She states her pain has worsened over the last 4 hours. No fevers. No diarrhea. No chest pain or shortness of breath. Physical Examination: Afebrile vitals unremarkable Resting comfortably no distress Moist mucous membranes Heart regular rate and rhythm Lungs are clear Abdomen soft nontender nondistended Alert Test Results: Labs including hepatic function lipase urinalysis all normal. Emergency Department Course and Treatment: Patient was treated here with IV fluids Phenergan and a GI cocktail. She is improved on reevaluation although she states she still has a little bit of pain. Advised to any Pepcid which she has home. She was advised on alcohol cessation and advised to stick to bland diet. I suspect her symptoms are related to alcoholic gastritis. She understands to return for new or worsening symptoms and was discharged home. Treatment Plan: [] Disposition: Discharge Impression: Epigastric abdominal pain This note was generated with [employer] dictation software. It may contain incorrect words, spelling, and punctuation that were not noted in review of the chart prior to signing ED Disposition - Plan for ED Patient: Referrals: Vanessa Abernathy DO [Primary Care Provider] -
--- NOTE | 2018-09-28 00:48 | ED.DEP ---
ED Disposition - Plan for ED Patient: Instructions: ED Abdominal Pain Unkn Cause Referrals: Vanessa Abernathy DO [Primary Care Provider] -
== END 2018-09-28 00:56 | disposition home or self-care (01) ==
PROVIDERS: Emergency Provider Emergency Medicine
DX: R10.13 Epigastric pain (principal); R11.2 Nausea with vomiting, unspecified; Z87.19 Personal history of other diseases of the digestive system; Z79.899 Other long term (current) drug therapy
CPT/HCPCS: 80048; 80076; 81001; 83690; 84703; 85025; 96374; 99283; J7030

== ENCOUNTER 2018-10-22 00:44 | Emergency (ER) | payer MEDICAID, SELFPAY ==
[2018-10-22 00:45] VITALS: BP 131/81; PULSE 83; RESP 18; TEMP 36.5; O2SAT 100; BMI 19.1
--- NOTE | 2018-10-22 01:07 | ED.DCSUM_ITS ---
- ER Visit Summary Date of Service: 10/22/18 Chief Complaint: Abdominal pain History of Present Illness: The patient is a 38 F who presents with abdominal pain. Pain is sharp. It is located in the upper abdomen and radiates through to the back. She rates it as severe. She has a history of pancreatitis and states that this feels similar. She reports nausea with 2 episodes of vomiting. She did drink alcohol 2 days ago. She has had 2 recent similar presentations with normal labs. Physical Examination: Afebrile vitals normal Moist mucous membranes Heart regular rate and rhythm Lungs are clear Abdomen soft she does have epigastric abdominal tenderness without guarding without rebound Alert Test Results: Labs unremarkable including normal lipase. Emergency Department Course and Treatment: Patient was treated with IV fluids morphine and Zofran. Her labs are normal. She was counseled on alcohol cessation. She was advised to follow-up as an outpatient was discharged home. Treatment Plan: [] Disposition: Discharge Impression: Abdominal pain This note was generated with [employer] dictation software. It may contain incorrect words, spelling, and punctuation that were not noted in review of the chart prior to signing ED Disposition - Plan for ED Patient: Referrals: Vanessa Abernathy DO [Primary Care Provider] -
[2018-10-22] MEDS: 0.9% Normal Saline 1,000 ML 1000 ML IV (01:17)
[2018-10-22] MEDS: Ondansetron 4 MG/2 ML Vial IV (01:17)
[2018-10-22] MEDS: Morphine 4 MG/ML Syringe IV (01:19)
[2018-10-22 01:23] LABS: Absolute Lymphocyte Count 2.37 X10^3/ul (0.83-4.51); Absolute Neutrophil Count 4.1 X10^3/uL (2.0-7.7); Basophil# 0.04 X10^3/uL; Basophil% 0.6 % (0-1); Eosinophil# 0.12 X10^3/uL; Eosinophils% 1.7 % (0-5); Hematocrit 35.2 % (37-47); Hemoglobin 11.7 g/dl (12.0-15.0); Lymphocyte # 2.37 X10^3/ul (4.0); Lymphocyte % 33.7 % (19-41); Mean Corp Hgb Conc 33.2 g/gl (32-36); Mean Corpuscular Hgb 27.9 pg (27.0-32.0); Mean Platelet Vol. 9.1 fl (6.2-12.0); Monocyte# 0.39 X10^3/uL; Monocyte% 5.5 % (0-10); Neutrophil # 4.11 X10^3/uL (2.7-7.7); Neutrophil % 58.5 % (47-70); POSITIVE COUNT NO; POSITIVE DIFFERENTIAL NO; POSITIVE MORPHOLOGY NO; Platelet Count 267 K/mm3 (150-450); RBC Distribution Width CV 14.6 % (11.6-14.6); Red Blood Count 4.19 M/mm3 (4.2-5.4)
[2018-10-22 01:37] LABS: ALB/GLOB Ratio 1.4 RATIO (0.9-2.4); AST(SGOT) 19 U/L (15-37); Alanine Aminotransfer ALT/SGPT 23 U/L (13-56); Alkaline Phosphatase 79 U/L (45-117); Anion Gap 8 (5-15); BUN 11 mg/dL (7-18); BUN/Creat Ratio 12.4 RATIO (10-20); Calcium,Total 8.6 mg/dL (8.5-10.1); Chloride 103 mmol/L (98-107); Creatinine, Serum 0.89 mg/dL (0.55-1.02); EST Glomerular Filtration Rate 75 mL/min (>60); Est Glom Filt Rate - Afr Amer 91 mL/min (>60); Estimated Creatinine Clearance 76.23 ml/min; Globulin 2.9 g/dL (2.2-4.2); Glucose 101 mg/dL (74-106); Lipase 138 U/L (73-393); Potassium 3.8 mmol/L (3.5-5.1); Protein, Total 6.9 g/dL (6.4-8.2); Sodium Level 138 mmol/L (136-145)
--- NOTE | 2018-10-22 01:42 | ED.DEP ---
ED Disposition - Plan for ED Patient: Instructions: ED Abdominal Pain Unkn Cause Referrals: Vanessa Abernathy DO [Primary Care Provider] -
[2018-10-22 02:25] VITALS: BP 118/84; PULSE 74; RESP 16; O2SAT 99
== END 2018-10-22 02:25 | disposition home or self-care (01) ==
PROVIDERS: Emergency Provider Emergency Medicine
DX: R10.13 Epigastric pain (principal); R11.2 Nausea with vomiting, unspecified; Z72.89 Other problems related to lifestyle; Z72.0 Tobacco use
CPT/HCPCS: 80053; 83690; 85025; 96361; 96374; 99283; J7030; A4216; J2405

== ENCOUNTER 2018-11-01 17:53 | Emergency (ER) | payer MEDICAID, SELFPAY ==
[2018-11-01 17:55] VITALS: BP 127/76; PULSE 119; RESP 18; TEMP 37.3; O2SAT 99; BMI 17.7
[2018-11-01 20:08] VITALS: BP 108/79; PULSE 116; RESP 18; O2SAT 98
--- NOTE | 2018-11-01 20:38 | ED.VISSUMM ---
- ER Visit Summary Date of Service: 11/01/18 Chief Complaint: Rash History of Present Illness: The patient is a 38 F with history of shingles. She noted tingling to her right shoulder blade yesterday and broke out in a rash today. She states she had shingles in the exact same location previously. She been taking Tylenol without improvement in her pain. Physical Examination: Vital signs remarkable only for heart rate of 116. Patient sitting upright in bed no acute distress. Heart is regular rate and rhythm. Skin examination reveals a red raised rash to the right scapula consistent with shingles. Test Results: [] Emergency Department Course and Treatment: Patient is treated with oxycodone, prednisone, and acyclovir here. She is given prescriptions for the same. Treatment Plan: [] Disposition: Discharge Impression: Herpes zoster This note was generated with [employer] dictation software. It may contain incorrect words, spelling, and punctuation that were not noted in review of the chart prior to signing ED Disposition - Plan for ED Patient: Disposition: Home or Assisted Living Instructions: ED Shingles Prescriptions: Oxycodone HCl/Acetaminophen [Percocet 5/325] 1 tablet PO Q6H PRN PRN 5 Days #20 tablet PRN Reason: Pain Acyclovir [Zovirax] 800 mg PO 5X/DAY #35 tablet Prednisone 10 mg PO UD #33 tablet Referrals: Vanessa Abernathy DO [Primary Care Provider] -
[2018-11-01] MEDS: predniSONE 20 MG Tablet 40 MG PO (20:54)
[2018-11-01] MEDS: oxyCODONE 5 MG Tablet PO (20:54)
[2018-11-01] MEDS: Acyclovir 800 MG Tablet PO (20:54)
[2018-11-01 20:59] VITALS: BP 108/79; PULSE 116; RESP 18; O2SAT 98
== END 2018-11-01 21:00 | disposition home or self-care (01) ==
PROVIDERS: Emergency Provider Emergency Medicine
DX: B02.9 Zoster without complications (principal); F32.9 Major depressive disorder, single episode, unspecified; F41.9 Anxiety disorder, unspecified; Z79.899 Other long term (current) drug therapy; Z72.0 Tobacco use; Z87.19 Personal history of other diseases of the digestive system; Z87.442 Personal history of urinary calculi
CPT/HCPCS: 99283

== ENCOUNTER 2018-11-09 00:59 | Emergency (ER) | payer MEDICAID, SELFPAY ==
[2018-11-09 01:00] VITALS: BP 133/78; PULSE 95; RESP 18; TEMP 36.7; O2SAT 100; BMI 18.7
[2018-11-09] MEDS: 0.9% Normal Saline 1,000 ML 999 ML IV (01:52)
[2018-11-09] MEDS: proMETHazine 25 MG/ML Syringe 12.5 MG IV (01:52)
[2018-11-09 02:00] LABS: Absolute Lymphocyte Count 1.69 X10^3/ul (0.83-4.51); Absolute Neutrophil Count 4.5 X10^3/uL (2.0-7.7); Basophil# 0.02 X10^3/uL; Basophil% 0.3 % (0-1); Eosinophil# 0.05 X10^3/uL; Eosinophils% 0.8 % (0-5); Hematocrit 36.2 % (37-47); Lymphocyte # 1.69 X10^3/ul (4.0); Lymphocyte % 25.6 % (19-41); Mean Corp Hgb Conc 33.1 g/gl (32-36); Mean Corpuscular Hgb 27.5 pg (27.0-32.0); Mean Corpuscular Volume 82.8 fL (81-99); Mean Platelet Vol. 8.6 fl (6.2-12.0); Monocyte% 4.5 % (0-10); Neutrophil # 4.53 X10^3/uL (2.7-7.7); Neutrophil % 68.6 % (47-70); Platelet Count 253 K/mm3 (150-450); RBC Distribution Width CV 14.5 % (11.6-14.6); RBC Distribution Width SD 43.4 fl (35.1-43.9); Red Blood Count 4.37 M/mm3 (4.2-5.4); White Blood Count 6.6 K/mm3 (4.4-11.0)
[2018-11-09 02:01] LABS: POSITIVE COUNT NO; POSITIVE DIFFERENTIAL NO; POSITIVE MORPHOLOGY NO
[2018-11-09 02:09] LABS: ALB/GLOB Ratio 1.4 RATIO (0.9-2.4); AST(SGOT) 25 U/L (15-37); Alanine Aminotransfer ALT/SGPT 22 U/L (13-56); Albumin, Serum 4.1 g/dL (3.2-5.0); Alkaline Phosphatase 71 U/L (45-117); Anion Gap 5 (5-15); BUN 10 mg/dL (7-18); BUN/Creat Ratio 13.2 RATIO (10-20); Calcium,Total 8.6 mg/dL (8.5-10.1); Chloride 107 mmol/L (98-107); Creatinine, Serum 0.76 mg/dL (0.55-1.02); EST Glomerular Filtration Rate 90 mL/min (>60); Est Glom Filt Rate - Afr Amer 109 mL/min (>60); Estimated Creatinine Clearance 87.53 ml/min; Glucose 101 mg/dL (74-106); Lipase 581 U/L (73-393); Potassium 3.7 mmol/L (3.5-5.1); Protein, Total 7.1 g/dL (6.4-8.2); Sodium Level 139 mmol/L (136-145)
[2018-11-09] MEDS: Morphine 4 MG/ML Syringe IV (02:38)
--- NOTE | 2018-11-09 03:03 | ED.DCSUM_ITS ---
- ER Visit Summary Date of Service: 11/09/18 Chief Complaint: Abdominal pain History of Present Illness: The patient is a 38 F who presents with abdominal pain. It feels similar to prior episodes of pancreatitis. She was drinking again 2 days ago. Her pain began yesterday. Sharp in the upper abdomen and radiates through to the back. She reports 2 episodes of nonbloody nonbilious emesis. Physical Examination: Afebrile vitals normal Moist mucous membranes Heart regular rate and rhythm Lungs clear Abdomen soft nondistended she has some epigastric tenderness without guarding or rebound Alert Test Results: Labs notable for mild elevation of lipase at 581. Emergency Department Course and Treatment: As patient's multiple recent visits with similar presentations labs are normal with normal lipase she was initially just treated with IV fluids Pepcid and Phenergan. On reevaluation her symptoms are unchanged. She does have mild elevation of her lipase and continues to complain of pain so was given IV morphine. She feels a little better on reevaluation but is resting comfortably. This is most likely alcohol induced. I counseled her on alcohol cessation. I asked if she would have any interest in detox or rehab referral and she stated no. Patient discharged. Treatment Plan: [] Disposition: Discharge Impression: Pancreatitis This note was generated with [employer] dictation software. It may contain incorrect words, spelling, and punctuation that were not noted in review of the chart prior to signing ED Disposition - Plan for ED Patient: Referrals: Vanessa Abernathy DO [Primary Care Provider] -
--- NOTE | 2018-11-09 03:03 | ED.DEP ---
ED Disposition - Plan for ED Patient: Instructions: ED Pancreatitis Referrals: Vanessa Abernathy DO [Primary Care Provider] -
[2018-11-09 03:22] VITALS: BP 126/80; PULSE 90; RESP 18; O2SAT 100
[2018-11-09 03:24] VITALS: PULSE 94; RESP 18; O2SAT 100
--- NOTE | 2018-11-09 03:25 | NURSING ---
pt states is on his way to pick her up; he is approximately 15 minutes away. pt informed cannot drive since she had morphine.
== END 2018-11-09 03:32 | disposition home or self-care (01) ==
PROVIDERS: Emergency Provider Emergency Medicine
DX: K85.90 Acute pancreatitis without necrosis or infection, unspecified (principal); Z87.19 Personal history of other diseases of the digestive system; Z87.442 Personal history of urinary calculi
CPT/HCPCS: 80053; 83690; 85025; 96361; 96374; 96375; 99285; J7030; A4216; J3490

== ENCOUNTER 2018-11-20 00:42 | Emergency (ER) | payer MEDICAID, SELFPAY ==
[2018-11-20 00:43] VITALS: BP 126/82; PULSE 102; RESP 20; TEMP 36.7; O2SAT 99; BMI 19.1
[2018-11-20 00:59] LABS: Absolute Neutrophil Count 3.7 X10^3/uL (2.0-7.7); Basophil# 0.07 X10^3/uL; Eosinophil# 0.16 X10^3/uL; Eosinophils% 2.2 % (0-5); Hematocrit 36.8 % (37-47); Hemoglobin 12.3 g/dl (12.0-15.0); Lymphocyte % 39.6 % (19-41); Mean Corp Hgb Conc 33.4 g/gl (32-36); Mean Corpuscular Hgb 28.1 pg (27.0-32.0); Mean Platelet Vol. 8.4 fl (6.2-12.0); Monocyte# 0.49 X10^3/uL; Monocyte% 6.7 % (0-10); Neutrophil # 3.69 X10^3/uL (2.7-7.7); Neutrophil % 50.4 % (47-70); Platelet Count 274 K/mm3 (150-450); RBC Distribution Width CV 14.9 % (11.6-14.6); RBC Distribution Width SD 46.2 fl (35.1-43.9); Red Blood Count 4.38 M/mm3 (4.2-5.4); White Blood Count 7.3 K/mm3 (4.4-11.0)
[2018-11-20] MEDS: 0.9% Normal Saline 1,000 ML 1000 ML IV (01:00)
[2018-11-20] MEDS: Ondansetron 4 MG/2 ML Vial IV (01:01)
[2018-11-20 01:03] LABS: POSITIVE COUNT NO; POSITIVE DIFFERENTIAL NO; POSITIVE MORPHOLOGY NO
[2018-11-20] MEDS: HYDROmorphone 1 MG/ML Syringe IV (01:03)
[2018-11-20 01:10] LABS: ALB/GLOB Ratio 1.3 RATIO (0.9-2.4); AST(SGOT) 28 U/L (15-37); Alanine Aminotransfer ALT/SGPT 28 U/L (13-56); Albumin, Serum 4.4 g/dL (3.2-5.0); Alkaline Phosphatase 75 U/L (45-117); Anion Gap 7 (5-15); BUN 10 mg/dL (7-18); BUN/Creat Ratio 11.4 RATIO (10-20); Calcium,Total 8.9 mg/dL (8.5-10.1); Chloride 102 mmol/L (98-107); Creatinine, Serum 0.88 mg/dL (0.55-1.02); EST Glomerular Filtration Rate 76 mL/min (>60); Est Glom Filt Rate - Afr Amer 92 mL/min (>60); Estimated Creatinine Clearance 77.37 ml/min; Globulin 3.5 g/dL (2.2-4.2); Glucose 91 mg/dL (74-106); Lipase 134 U/L (73-393); Potassium 3.7 mmol/L (3.5-5.1); Protein, Total 7.9 g/dL (6.4-8.2); Sodium Level 138 mmol/L (136-145)
--- NOTE | 2018-11-20 01:52 | ED.VISSUMM ---
- ER Visit Summary Date of Service: 11/20/18 Chief Complaint: [Abdominal pain] History of Present Illness: The patient is a 38 F [presents the emergency department complaint of abdominal pain that started yesterday. Patient rates her pain a 7 or 8 out of 10. Patient complains of nausea and vomiting x5 in the last 24 hours. Patient states pain started after eating. Patient describes the pain is epigastric and radiating to her back. Patient states that she was seen at [facility] 4 days ago and had blood work that showed a lipase of 480. Patient was sent home with Zofran and 10 tablets of Percocet for her pain. Patient has an appointment with a drawing in hand in 3 weeks. Patient states that she is lost about 20 pounds in the last 2 months. Patient's had intermittent episodes of pancreatitis over the last several years. Patient does drink alcohol and she is a smoker. She also has a history of depression.] Physical Examination: [HEENT-PERRLA, EOMI. Cranial nerves II through XII grossly intact. TMs clear. Mucous membranes moist. No adenopathy. Cardiovascular-regular rate and rhythm without murmur or ectopy Lungs-clear to auscultation, chest wall stable without crepitus or subcu emphysema Abdomen-normoactive bowel sounds, soft. Patient does have tenderness over the epigastric region with some guarding. There is no rebound, rigidity, cranial signs. Extremities-intact ?4, normal range of motion, normal pulses, atraumatic] Test Results: [CBC with differential is normal. Chemistries were normal. LFTs were normal. Lipase was 134.] Emergency Department Course and Treatment: [She was given a liter normal same fluid bolus. Patient was medicated with Dilaudid and Zofran.] Treatment Plan: [I discussed results with patient and at this point she would prefer to go home and not be admitted. I will write her prescription for Zofran and a few more Percocet for pain. Patient advised on clear liquid diet for the next several days. Patient advised to return if worsening pain persistent vomiting, dehydration, or conditions worsen anyway.] Patient had a CT scan of the abdomen pelvis just 2 months ago that was unremarkable. She has had multiple CT scans in the past. I do not feel further imaging is indicated at this time. Disposition: [Discharged home in stable condition] Impression: [Abdominal pain-suspect acute pancreatitis] This note was generated with [employer] dictation software. It may contain incorrect words, spelling, and punctuation that were not noted in review of the chart prior to signing ED Disposition - Plan for ED Patient: Referrals: Vanessa Abernathy DO [Primary Care Provider] -
--- NOTE | 2018-11-20 01:55 | ED.DCSUM_ITS ---
- ER Visit Summary Date of Service: 11/20/18 Chief Complaint: [Abdominal pain] History of Present Illness: The patient is a 38 F [presents the emergency department complaint of abdominal pain that started yesterday. Patient rates her pain a 7 or 8 out of 10. Patient complains of nausea and vomiting x5 in the last 24 hours. Patient states pain started after eating. Patient describes the pain is epigastric and radiating to her back. Patient states that she was seen at [facility] 4 days ago and had blood work that showed a lipase of 480. Patient was sent home with Zofran and 10 tablets of Percocet for her pain. Patient has an appointment with a automatic paint sprayer operator in 3 weeks. Patient states that she is lost about 20 pounds in the last 2 months. Patient's had intermittent episodes of pancreatitis over the last several years. Patient does drink alcohol and she is a smoker. She also has a history of depression.] Physical Examination: [HEENT-PERRLA, EOMI. Cranial nerves II through XII grossly intact. TMs clear. Mucous membranes moist. No adenopathy. Cardiovascular-regular rate and rhythm without murmur or ectopy Lungs-clear to auscultation, chest wall stable without crepitus or subcu emphysema Abdomen-normoactive bowel sounds, soft. Patient does have tenderness over the epigastric region with some guarding. There is no rebound, rigidity, cranial signs. Extremities-intact ?4, normal range of motion, normal pulses, atraumatic] Test Results: [CBC with differential is normal. Chemistries were normal. LFTs were normal. Lipase was 134.] Emergency Department Course and Treatment: [She was given a liter normal same fluid bolus. Patient was medicated with Dilaudid and Zofran.] Treatment Plan: [I discussed results with patient and at this point she would prefer to go home and not be admitted. I will write her prescription for Zofran and a few more Percocet for pain. Patient advised on clear liquid diet for the next several days. Patient advised to return if worsening pain persistent vomiting, dehydration, or conditions worsen anyway.] Patient had a CT scan of the abdomen pelvis just 2 months ago that was unremarkable. She has had multiple CT scans in the past. I do not feel further imaging is indicated at this time. Disposition: [Discharged home in stable condition] Impression: [Abdominal pain-suspect acute pancreatitis] This note was generated with [employer] dictation software. It may contain incorrect words, spelling, and punctuation that were not noted in review of the chart prior to signing ED Disposition - Plan for ED Patient: Referrals: Vanessa Abernathy DO [Primary Care Provider] -
--- NOTE | 2018-11-20 01:55 | ED.DEP ---
ED Disposition - Plan for ED Patient: Instructions: ED Pancreatitis Prescriptions: Oxycodone HCl/Acetaminophen [Percocet 5/325] 1 tab PO Q6H PRN PRN 3 Days #12 tab PRN Reason: Pain Ondansetron [Zofran Odt] 4 mg PO Q8H PRN PRN #10 tab PRN Reason: Nausea Referrals: Vanessa Abernathy DO [Primary Care Provider] - 3-5 Days
[2018-11-20] MEDS: oxyCODONE 5 MG Tablet PO (02:06)
[2018-11-20] MEDS: Ondansetron ODT 4 MG Tablet PO (02:09)
[2018-11-20 02:10] VITALS: BP 128/85; PULSE 87; RESP 16; O2SAT 98
== END 2018-11-20 02:24 | disposition home or self-care (01) ==
PROVIDERS: Emergency Provider Emergency Medicine
DX: R10.13 Epigastric pain (principal); R11.2 Nausea with vomiting, unspecified; F32.9 Major depressive disorder, single episode, unspecified; F17.200 Nicotine dependence, unspecified, uncomplicated; Z79.899 Other long term (current) drug therapy; Z87.19 Personal history of other diseases of the digestive system
CPT/HCPCS: 80053; 83690; 85025; 96361; 96374; 96375; 99283; A4216; J2405

== ENCOUNTER 2018-11-26 01:50 | Emergency (ER) | payer MEDICAID, SELFPAY ==
[2018-11-26 01:53] VITALS: BP 125/80; PULSE 98; RESP 14; TEMP 36.4; O2SAT 100; BMI 19.8
--- NOTE | 2018-11-26 02:14 | ED.DCSUM_ITS ---
- ER Visit Summary Date of Service: 11/26/18 Chief Complaint: My pancreatitis History of Present Illness: The patient is a 38 F who presents with chief complaint of pancreatitis. She has had multiple ER visits for the same. She continues to drink alcohol. She states she drank alcohol 1/2 days ago. She complains of severe epigastric pain since yesterday. She also complains of nausea vomiting and diarrhea. This is typical in character and location to previous exacerbations of pancreatitis. No fevers chest pain shortness of breath. Physical Examination: Afebrile vitals normal Moist mucous membranes Heart regular rate and rhythm Lungs clear Abdomen soft nondistended she does have epigastric abdominal tenderness without guarding without rebound Alert Test Results: CBC, CMP, lipase normal. Emergency Department Course and Treatment: OAS report shows 44 different prescribers with prescriptions filled at 17 different pharmacies in multiple cities. This raises concern for drug-seeking behavior. On all but 1 of her ER visits here her lipase was normal. Patient was given IV fluids and Phenergan. She was advised of her findings. She is resting comfortably on reevaluation. She was discharged to follow-up as an outpatient. Treatment Plan: [] Disposition: Discharge Impression: Chronic abdominal pain This note was generated with [employer] dictation software. It may contain incorrect words, spelling, and punctuation that were not noted in review of the chart prior to signing ED Disposition - Plan for ED Patient: Referrals: Vanessa Abernathy DO [Primary Care Provider] -
[2018-11-26 02:16] LABS: Absolute Neutrophil Count 3.6 X10^3/uL (2.0-7.7); Basophil# 0.03 X10^3/uL; Basophil% 0.5 % (0-1); Eosinophils% 1.6 % (0-5); Hematocrit 34.9 % (37-47); Hemoglobin 11.6 g/dl (12.0-15.0); Lymphocyte % 33.3 % (19-41); Mean Corp Hgb Conc 33.2 g/gl (32-36); Mean Corpuscular Hgb 27.6 pg (27.0-32.0); Mean Corpuscular Volume 82.9 fL (81-99); Mean Platelet Vol. 8.5 fl (6.2-12.0); Monocyte# 0.45 X10^3/uL; Monocyte% 7.1 % (0-10); Neutrophil # 3.62 X10^3/uL (2.7-7.7); Neutrophil % 57.3 % (47-70); Platelet Count 257 K/mm3 (150-450); RBC Distribution Width CV 14.9 % (11.6-14.6); RBC Distribution Width SD 45.3 fl (35.1-43.9); Red Blood Count 4.21 M/mm3 (4.2-5.4); White Blood Count 6.3 K/mm3 (4.4-11.0)
[2018-11-26 02:19] LABS: POSITIVE COUNT NO; POSITIVE DIFFERENTIAL NO; POSITIVE MORPHOLOGY NO
[2018-11-26] MEDS: 0.9% Normal Saline 1,000 ML 999 ML IV (02:27)
[2018-11-26] MEDS: proMETHazine 25 MG/ML Syringe 12.5 MG IV (02:27)
[2018-11-26 02:32] LABS: ALB/GLOB Ratio 1.3 RATIO (0.9-2.4); AST(SGOT) 23 U/L (15-37); Alanine Aminotransfer ALT/SGPT 22 U/L (13-56); Alkaline Phosphatase 68 U/L (45-117); Anion Gap 6 (5-15); BUN 9 mg/dL (7-18); BUN/Creat Ratio 11.2 RATIO (10-20); Calcium,Total 8.9 mg/dL (8.5-10.1); Chloride 106 mmol/L (98-107); Creatinine, Serum 0.81 mg/dL (0.55-1.02); EST Glomerular Filtration Rate 84 mL/min (>60); Est Glom Filt Rate - Afr Amer 101 mL/min (>60); Estimated Creatinine Clearance 86.85 ml/min; Globulin 3.1 g/dL (2.2-4.2); Glucose 115 mg/dL (74-106); Lipase 126 U/L (73-393); Potassium 3.5 mmol/L (3.5-5.1); Protein, Total 7.1 g/dL (6.4-8.2); Sodium Level 140 mmol/L (136-145)
--- NOTE | 2018-11-26 02:40 | ED.DEP ---
ED Disposition - Plan for ED Patient: Instructions: ED Abdominal Pain Unkn Cause Referrals: Vanessa Abernathy DO [Primary Care Provider] -
[2018-11-26 02:46] VITALS: BP 126/80; PULSE 79; RESP 18; O2SAT 98
== END 2018-11-26 02:47 | disposition home or self-care (01) ==
PROVIDERS: Emergency Provider Emergency Medicine
DX: R10.9 Unspecified abdominal pain (principal); G89.29 Other chronic pain; R11.2 Nausea with vomiting, unspecified; R19.7 Diarrhea, unspecified; Z79.899 Other long term (current) drug therapy; Z87.19 Personal history of other diseases of the digestive system; Z87.442 Personal history of urinary calculi
CPT/HCPCS: 80053; 83690; 85025; 96374; 99285; J7030; A4216

== ENCOUNTER 2018-12-14 05:36 | Emergency (ER) | payer SELFPAY ==
[2018-12-14 05:36] VITALS: RESP 16
[2018-12-14 05:37] VITALS: BP 135/66; PULSE 93; RESP 16; TEMP 36.8; O2SAT 99; BMI 18.7
[2018-12-14 05:55] LABS: Absolute Lymphocyte Count 2.96 X10^3/ul (0.83-4.51); Basophil# 0.05 X10^3/uL; Basophil% 0.6 % (0-1); Eosinophil# 0.07 X10^3/uL; Eosinophils% 0.8 % (0-5); Hematocrit 36.6 % (37-47); Hemoglobin 11.9 g/dl (12.0-15.0); Lymphocyte # 2.96 X10^3/ul (4.0); Lymphocyte % 34.6 % (19-41); Mean Corp Hgb Conc 32.5 g/gl (32-36); Mean Corpuscular Hgb 27.5 pg (27.0-32.0); Mean Corpuscular Volume 84.5 fL (81-99); Mean Platelet Vol. 8.8 fl (6.2-12.0); Monocyte# 0.44 X10^3/uL; Monocyte% 5.1 % (0-10); Neutrophil # 5.03 X10^3/uL (2.7-7.7); Neutrophil % 58.8 % (47-70); Platelet Count 283 K/mm3 (150-450); RBC Distribution Width CV 15.8 % (11.6-14.6); RBC Distribution Width SD 48.9 fl (35.1-43.9); Red Blood Count 4.33 M/mm3 (4.2-5.4); White Blood Count 8.6 K/mm3 (4.4-11.0)
[2018-12-14] MEDS: proMETHazine 25 MG/ML Syringe 12.5 MG IV (05:56)
[2018-12-14] MEDS: 0.9% Normal Saline 1,000 ML 999 ML IV (05:56)
[2018-12-14 06:01] LABS: POSITIVE COUNT NO; POSITIVE DIFFERENTIAL NO; POSITIVE MORPHOLOGY NO
[2018-12-14 06:11] LABS: ALB/GLOB Ratio 1.2 RATIO (0.9-2.4); AST(SGOT) 27 U/L (15-37); Alanine Aminotransfer ALT/SGPT 26 U/L (13-56); Alkaline Phosphatase 78 U/L (45-117); Anion Gap 9 (5-15); BUN 7 mg/dL (7-18); BUN/Creat Ratio 8.7 RATIO (10-20); Calcium,Total 8.8 mg/dL (8.5-10.1); Chloride 103 mmol/L (98-107); Creatinine, Serum 0.81 mg/dL (0.55-1.02); EST Glomerular Filtration Rate 84 mL/min (>60); Est Glom Filt Rate - Afr Amer 101 mL/min (>60); Estimated Creatinine Clearance 82.43 ml/min; Globulin 3.4 g/dL (2.2-4.2); Glucose 104 mg/dL (74-106); Lipase 1172 U/L (73-393); Potassium 3.5 mmol/L (3.5-5.1); Protein, Total 7.4 g/dL (6.4-8.2); Sodium Level 139 mmol/L (136-145)
--- NOTE | 2018-12-14 06:20 | ED.VISSUMM ---
- ER Visit Summary Date of Service: 12/14/18 Chief Complaint: Abdominal pain History of Present Illness: The patient is a 38 F who presents with abdominal pain. She has an alcoholic. She has a history of alcoholic pancreatitis. She has had multiple ER visits for similar presentations. She last drank 2 days ago. She complains of severe epigastric pain nausea and vomiting. She is also begun to develop some diarrhea. Her pain is sharp. It radiates into the back. Patient has had multiple prior emergency department visits with a normal lipase. Previous OAS reports have also been concerning showing the patient has had extensive number of prescribers from multiple facilities and prescriptions filled at multiple pharmacies. Physical Examination: Afebrile vitals normal Patient appears uncomfortable Moist mucous membranes Heart regular rate and rhythm Lungs are clear Abdomen soft nondistended she does have some epigastric tenderness Alert Test Results: Labs notable for lipase 1172. Emergency Department Course and Treatment: Patient initially treated with IV fluids and Phenergan. Given her prior history and some concern for drug-seeking behavior I do not feel opiates were appropriate unless she had verifiable pancreatitis. She does have modest elevation of her lipase so was given oxycodone here as well as a prescription for Percocet. She had no further vomiting during her time here and is not clinically dehydrated.. Patient discharged. Treatment Plan: [] Disposition: Discharge Impression: Pancreatitis This note was generated with [employer] dictation software. It may contain incorrect words, spelling, and punctuation that were not noted in review of the chart prior to signing ED Disposition - Plan for ED Patient: Referrals: Vanessa Abernathy DO [Primary Care Provider] -
--- NOTE | 2018-12-14 06:23 | ED.DCSUM_ITS ---
- ER Visit Summary Date of Service: 12/14/18 Chief Complaint: Abdominal pain History of Present Illness: The patient is a 38 F who presents with abdominal pain. She has an alcoholic. She has a history of alcoholic pancreatitis. She has had multiple ER visits for similar presentations. She last drank 2 days ago. She complains of severe epigastric pain nausea and vomiting. She is also begun to develop some diarrhea. Her pain is sharp. It radiates into the back. Patient has had multiple prior emergency department visits with a normal lipase. Previous OARRS reports have also been concerning showing the patient has had extensive number of prescribers from multiple facilities and prescriptions f illed at multiple pharmacies. Physical Examination: Afebrile vitals normal Patient appears uncomfortable Moist mucous membranes Heart regular rate and rhythm Lungs are clear Abdomen soft nondistended she does have some epigastric tenderness Alert Test Results: Labs notable for lipase 1172. Emergency Department Course and Treatment: Patient initially treated with IV fluids and Phenergan. Given her prior history and some concern for drug-seeking behavior I do not feel opiates were appropriate unless she had verifiable pancreatitis. She does have modest elevation of her lipase so was given oxycodone here as well as a prescription for Percocet. She had no further vomiting during her time here and is not clinically dehydrated.. Patient discharged. Treatment Plan: [] Disposition: Discharge Impression: Pancreatitis This note was generated with [employer] dictation software. It may contain incorrect words, spelling, and punctuation that were not noted in review of the chart prior to signing ED Disposition - Plan for ED Patient: Referrals: Vanessa Abernathy DO [Primary Care Provider] -
--- NOTE | 2018-12-14 06:23 | ED.DEP ---
ED Disposition - Plan for ED Patient: Instructions: ED Pancreatitis Referrals: Vanessa Abernathy DO [Primary Care Provider] -
[2018-12-14] MEDS: oxyCODONE 5 MG Tablet PO (06:28)
[2018-12-14 06:53] VITALS: BP 137/85; PULSE 92; RESP 16; O2SAT 99
== END 2018-12-14 07:05 | disposition home or self-care (01) ==
LOC: ED 05:55
PROVIDERS: Emergency Provider Emergency Medicine
DX: K85.20 Alcohol induced acute pancreatitis without necrosis or infection (principal); R19.7 Diarrhea, unspecified; Z79.899 Other long term (current) drug therapy
CPT/HCPCS: 80053; 83690; 85025; 96361; 96374; 99283; J7030; A4216

== ENCOUNTER 2018-12-25 03:15 | Emergency (ER) | payer SELFPAY ==
[2018-12-25 03:16] VITALS: BP 142/87; PULSE 96; RESP 16; TEMP 37.4; O2SAT 99; BMI 18.2
--- NOTE | 2018-12-25 03:45 | ED.VISSUMM ---
- ER Visit Summary Date of Service: 12/25/18 Chief Complaint: Rash History of Present Illness: The patient is a 38 F who presents with a rash. It began about 2 days ago. She has a prior history of shingles. She states this feels similar. She complains of a deep tingling pain along her left chest. She otherwise is without complaint. Physical Examination: Afebrile vitals unremarkable Patient does have a vesicular rash in a dermatomal distribution across the left posterior thorax consistent with herpes zoster Test Results: Not indicated Emergency Department Course and Treatment: Patient given a prescription for [place] and first dose here. She has an allergy to valacyclovir but has tolerated acyclovir previously without a problem so was treated with acyclovir. Patient discharged. Treatment Plan: [] Disposition: Discharge Impression: Herpes zoster This note was generated with [employer] dictation software. It may contain incorrect words, spelling, and punctuation that were not noted in review of the chart prior to signing ED Disposition - Plan for ED Patient: Referrals: Vanessa Abernathy DO [Primary Care Provider] -
--- NOTE | 2018-12-25 03:47 | ED.DEP ---
ED Disposition - Plan for ED Patient: Instructions: Shingles (Herpes Zoster) Prescriptions: Hydrocodone Bitart/Apap 5-325 [[place] 5MG-325MG] 1 tab PO Q6H PRN PRN 3 Days #10 tab PRN Reason: Pain Prescription Printed Acyclovir [Zovirax] 800 mg PO 5X/DAY #35 tab Prescription Printed Referrals: Vanessa Abernathy DO [Primary Care Provider] -
[2018-12-25] MEDS: Acyclovir 800 MG Tablet PO (03:57)
[2018-12-25] MEDS: HYDROcodone Bitartrate/Apap 5/325 Tablet PO (03:57)
== END 2018-12-25 03:58 | disposition home or self-care (01) ==
PROVIDERS: Emergency Provider Emergency Medicine
DX: B02.9 Zoster without complications (principal); Z79.899 Other long term (current) drug therapy; Z86.19 Personal history of other infectious and parasitic diseases; Z87.19 Personal history of other diseases of the digestive system
CPT/HCPCS: 99283

== ENCOUNTER 2019-01-03 01:06 | Emergency (ER) | payer SELFPAY ==
[2019-01-03 01:06] VITALS: BP 145/88; PULSE 110; RESP 16; TEMP 36.8; O2SAT 100; BMI 18.0
--- NOTE | 2019-01-03 01:21 | ED.DCSUM_ITS ---
History of Present Illness Chief Complaint: Abd Pain Informant: Patient - Abdominal Pain/Flank Pain Onset: Yesterday Context: Gradual Onset Timing: Continuous Quality: Aching Location: Epigastric Current Severity: Severe Maximum Severity: Severe Worsened by: Nothing Relieved by: Nothing - Nausea/Vomiting/Emesis GI Symptom: Nausea, Vomiting Onset: Yesterday Quality: Negative for: Blood streaks, Coffee ground, Hematemesis Severity: Moderate - now dry heaving - Diarrhea/Melena/Hematochezia GI Symptom: Diarrhea. Negative for: Melena - but getting there - dark, Hematochezia Onset: Today Severity: Mild Associated Symptoms: Negative for: Dysuria, Frequency, Hematuria, Urgency Narrative: Patient states she drank alcohol day before yesterday and yesterday started having this discomfort which is worse today, consistent with prior episodes of pancreatitis. Still has her gallbladder, was told there was some sludge in it but never been diagnosed with stones. Pain is epigastric and radiates straight through to her back similar to other episodes. No fevers. No urinary symptoms. No recent injuries. No other systemic symptoms. Prior similar symptoms: Yes - with pancreatitis - Past Medical History (1) Alcoholism Status: Chronic (2) Alcoholic pancreatitis Status: Chronic (3) Depression Status: Chronic Past Medical History - Allergies and Home Meds Allergies/Adverse Reactions: Allergies ketorolac [From Toradol] Allergy (Verified 01/03/19 01:06) Itching valacyclovir Allergy (Verified 01/03/19 01:06) Itching Primary Care Physician: Vanessa Abernathy DO [Primary Care Provider] - As soon as possible [facility] [STAFF PHYSICIAN] - As Needed (If you need outpatient rehab resources for alcohol) Lives: Spouse/ Significant Other Smoking Status: Current every day smoker Alcohol: Occasional Drugs: None Review of Systems General: Reports: Malaise. Denies: Chills, Fever, Sweats Eyes: Denies: Visual changes - bilaterally, Diplopia ENT: Denies: Rhinorrhea, Sore throat Cardiovascular: Denies: Chest pain, Palpitations Respiratory: Denies: Dyspnea, Cough, Dyspnea on exertion Gastrointestinal: Reports: Abdominal pain, Nausea, Vomiting, Diarrhea. Denies: Melena, Hematochezia Genitourinary: Denies: Dysuria, Hematuria, Frequency Musculoskeletal: Reports: Back pain. Denies: Extremity Pain Skin: Denies: Rash, Wounds Neurological: Denies: Headache, Weakness, Numbness Physical Exam Vital Signs/Narrative: Vital Signs Temp Pulse Resp BP Pulse Ox 01/03/19 01:06 98.2 F 110 H 16 145/88 H 100 Inital Vital Signs reviewed: Yes General: Well nourished, Well developed, No Acute Distress - but appears uncomfortable Head: Normocephalic, Atraumatic Eyes: Perrl, EOMI ENT: Moist mucous membranes, No rhinorrhea Neck: Supple, Nontender Cardiovascular: Regular rate, Regular rhythm, No murmurs Respiratory: No distress, CTA bilaterally, Chest nontender Abdomen: Soft, Nondistended, Normal bowel sounds, Tender - RUQ and epigastric, mod-sv; otherwise, nontender throughout other areas. Negative for: Guarding, Rebound tenderness Back: Nontender, Normal Inspection. Negative for: CVA tenderness Extremities: Nontender, No edema Skin: Normal color, No rash, No Trauma Neurological: Alert, Oriented x3, Cranial nerves II-XII grossly intact, Normal Strength, Normal Sensation Psychological: Normal Mood, - - anxious Diagnostic/Tx/Re-eval Laboratory Tests 01/03/19 01/03/19 Range/Units 01:25 01:25 WBC 11.6 H (4.4-11.0) K/mm3 RBC 4.61 (4.2-5.4) M/mm3 Hgb 12.7 (12.0-15.0) g/dl Hct 38.2 (37-47) % MCV 82.9 (81-99) fL MCH 27.5 (27.0-32.0) pg MCHC 33.2 (32-36) g/gl RDW 15.8 H (11.6-14.6) % RDW Differential 47.7 H (35.1-43.9) fl Plt Count 336 (150-450) K/mm3 MPV 8.6 (6.2-12.0) fl Immature Gran % (Auto) 0.200 (0.0-0.9) % Neut % (Auto) 70.4 H (47-70) % Lymph % (Auto) 24.3 (19-41) % [place] % (Auto) 3.9 (0-10) % Eos % (Auto) 0.7 (0-5) % Baso % (Auto) 0.5 (0-1) % Absolute Neuts (auto) 8.2 H (2.0-7.7) X10^3/uL Absolute Lymphs (auto) 2.83 (0.83-4.51) X10^3/ul Total Counted Not Reportable Sodium 136 (136-145) mmol/L Potassium 3.8 (3.5-5.1) mmol/L Chloride 107 (98-107) mmol/L Carbon Dioxide 24.0 (21.0-32.0) mmol/L Anion Gap 5 (5-15) BUN 7 (7-18) mg/dL Creatinine 0.92 (0.55-1.02) mg/dL Estim Creat Clear Calc 69.86 ml/min Est GFR (MDRD) Af Amer 87 (>60) mL/min Est GFR (MDRD) Non-Af 72 (>60) mL/min BUN/Creatinine Ratio 7.6 L (10-20) RATIO Glucose 116 H (74-106) mg/dL Calcium 9.0 (8.5-10.1) mg/dL Total Bilirubin 0.20 (0.20-1.00) mg/dL AST 17 (15-37) U/L ALT 19 (13-56) U/L Alkaline Phosphatase 76 (45-117) U/L Total Protein 7.9 (6.4-8.2) g/dL Albumin 4.5 (3.2-5.0) g/dL Globulin 3.4 (2.2-4.2) g/dL Albumin/Globulin Ratio 1.3 (0.9-2.4) RATIO Lipase 92 (73-393) U/L - Medical Decision Making On initial evaluation, patient seems uncomfortable, nursing notes that patient has been here frequently recently. Other physicians have noted the possibility of drug-seeking behavior. I have ordered her morphine and Phenergan. She appears hydrated. Work-up is ordered. I reviewed her oars report which is extremely concerning. Multiple prescribers from different hospitals, prescriptions filled at multiple regional pharmacies, not just local ones. She has had many visits to this emergency department in the last 6 months, more than 10. She has had 9 prescriptions for narcotics in the past month from 7 different prescribers, filled at multiple different pharmacies. Given this, I certainly understand the concern from previous physicians. Accordingly, the that her lipase was over 1100 during her visit here 1 week ago for similar symptoms. Today it is well within normal limits at 92. I am certainly not comfortable prescribing her any narcotics for this. She is advised to abstain from alcohol and follow-up with her doctor. It is notable that she did not request any narcotics here tonight, and although improved, she states she is st ill feeling uncomfortable and dehydrated. She declines an offer for an IV and IVF, and would like ice/water, which was provided. I advised her we would not be prescribing narcotics, and she stated that she is not asking for them. ED Disposition - Plan for ED Patient: Disposition: Home or Assisted Living Diagnosis: Chronic alcoholic pancreatitis Instructions: Chronic Pancreatitis Prescriptions: proMETHazine tablet [Phenergan] 25 mg PO Q6H PRN PRN #10 tab PRN Reason: Nausea Prescription Printed Referrals: Vanessa Abernathy DO [Primary Care Provider] - As soon as possible [facility] [STAFF PHYSICIAN] - As Needed (If you need outpatient rehab resources for alcohol) Additional Instructions: Abstain from alcohol use.
[2019-01-03] MEDS: Morphine 4 MG/ML Syringe IM (01:33)
[2019-01-03] MEDS: proMETHazine 25 MG/ML Syringe 12.5 MG IM (01:33)
[2019-01-03 01:42] LABS: Absolute Lymphocyte Count 2.83 X10^3/ul (0.83-4.51); Absolute Neutrophil Count 8.2 X10^3/uL (2.0-7.7); Basophil# 0.06 X10^3/uL; Basophil% 0.5 % (0-1); Eosinophil# 0.08 X10^3/uL; Eosinophils% 0.7 % (0-5); Hematocrit 38.2 % (37-47); Hemoglobin 12.7 g/dl (12.0-15.0); Lymphocyte # 2.83 X10^3/ul (4.0); Lymphocyte % 24.3 % (19-41); Mean Corp Hgb Conc 33.2 g/gl (32-36); Mean Corpuscular Hgb 27.5 pg (27.0-32.0); Mean Corpuscular Volume 82.9 fL (81-99); Mean Platelet Vol. 8.6 fl (6.2-12.0); Monocyte# 0.45 X10^3/uL; Monocyte% 3.9 % (0-10); Neutrophil # 8.19 X10^3/uL (2.7-7.7); Neutrophil % 70.4 % (47-70); Platelet Count 336 K/mm3 (150-450); RBC Distribution Width CV 15.8 % (11.6-14.6); RBC Distribution Width SD 47.7 fl (35.1-43.9); Red Blood Count 4.61 M/mm3 (4.2-5.4); White Blood Count 11.6 K/mm3 (4.4-11.0)
[2019-01-03 01:43] LABS: POSITIVE COUNT NO; POSITIVE DIFFERENTIAL NO; POSITIVE MORPHOLOGY NO
[2019-01-03 01:55] LABS: ALB/GLOB Ratio 1.3 RATIO (0.9-2.4); AST(SGOT) 17 U/L (15-37); Alanine Aminotransfer ALT/SGPT 19 U/L (13-56); Albumin, Serum 4.5 g/dL (3.2-5.0); Alkaline Phosphatase 76 U/L (45-117); Anion Gap 5 (5-15); BUN 7 mg/dL (7-18); BUN/Creat Ratio 7.6 RATIO (10-20); Chloride 107 mmol/L (98-107); Creatinine, Serum 0.92 mg/dL (0.55-1.02); EST Glomerular Filtration Rate 72 mL/min (>60); Est Glom Filt Rate - Afr Amer 87 mL/min (>60); Estimated Creatinine Clearance 69.86 ml/min; Globulin 3.4 g/dL (2.2-4.2); Glucose 116 mg/dL (74-106); Lipase 92 U/L (73-393); Potassium 3.8 mmol/L (3.5-5.1); Protein, Total 7.9 g/dL (6.4-8.2); Sodium Level 136 mmol/L (136-145)
[2019-01-03 02:06] VITALS: BP 121/79; PULSE 86; RESP 20; O2SAT 100
== END 2019-01-03 02:07 | disposition home or self-care (01) ==
PROVIDERS: Emergency Provider Emergency Medicine
DX: K86.0 Alcohol-induced chronic pancreatitis (principal); F32.9 Major depressive disorder, single episode, unspecified; Z79.899 Other long term (current) drug therapy; F17.200 Nicotine dependence, unspecified, uncomplicated
CPT/HCPCS: 36415; 80053; 83690; 85025; 96372; 99283

== ENCOUNTER 2019-01-07 02:44 | Emergency (ER) | payer SELFPAY ==
[2019-01-07 02:46] VITALS: BP 138/79; PULSE 97; RESP 15; TEMP 36.6; O2SAT 98; BMI 19.3
[2019-01-07] MEDS: Morphine 4 MG/ML Syringe IV (03:58)
[2019-01-07] MEDS: Ondansetron 4 MG/2 ML Vial IV (03:58)
[2019-01-07] MEDS: 0.9% Normal Saline 1,000 ML 999 ML IV (03:59)
--- NOTE | 2019-01-07 04:09 | ED.DCSUM_ITS ---
- ER Visit Summary Date of Service: 01/07/19 Chief Complaint: Abdominal pain History of Present Illness: The patient is a 38 F who presents with recurrent abdominal pain. She has a history of chronic pancreatitis. She continues to drink. She last drank alcohol 2 nights ago and developed severe epigastric stabbing abdominal pain with radiation through to the back. She also complains of associated nausea vomiting diarrhea and sweats. She has been seen multiple times in the emergency department with a similar presentation. There has been some concern for drug-seeking behavior. However she has had visits with elevated lipase. Physical Examination: Afebrile vitals unremarkable Moist mucous membranes Heart regular rate and rhythm Lungs are clear Abdomen soft she does have epigastric abdominal tenderness without guarding without rebound Alert Skin warm and dry Test Results: Laboratory studies notable for hemoglobin 11.1, lipase 424. Emergency Department Course and Treatment: Patient was treated with IV fluids, morphine, Zofran. Lipase is only minimally elevated. And not believe she requires hospitalization. She will be discharged. She was again counseled on alcohol cessation. Treatment Plan: [] Disposition: Discharge Impression: Chronic pancreatitis This note was generated with [employer] dictation software. It may contain incorrect words, spelling, and punctuation that were not noted in review of the chart prior to signing ED Disposition - Plan for ED Patient: Referrals: Vanessa Abernathy DO [Primary Care Provider] -
[2019-01-07 04:33] LABS: ALB/GLOB Ratio 1.4 RATIO (0.9-2.4); AST(SGOT) 20 U/L (15-37); Alanine Aminotransfer ALT/SGPT 25 U/L (13-56); Alkaline Phosphatase 77 U/L (45-117); Anion Gap 9 (5-15); BUN 9 mg/dL (7-18); BUN/Creat Ratio 10.7 RATIO (10-20); Calcium,Total 8.7 mg/dL (8.5-10.1); Chloride 107 mmol/L (98-107); Creatinine, Serum 0.84 mg/dL (0.55-1.02); EST Glomerular Filtration Rate 80 mL/min (>60); Est Glom Filt Rate - Afr Amer 96 mL/min (>60); Estimated Creatinine Clearance 82.05 ml/min; Globulin 2.9 g/dL (2.2-4.2); Glucose 86 mg/dL (74-106); Lipase 424 U/L (73-393); Potassium 3.9 mmol/L (3.5-5.1); Protein, Total 6.9 g/dL (6.4-8.2); Sodium Level 142 mmol/L (136-145)
[2019-01-07 04:35] LABS: Absolute Lymphocyte Count 2.68 X10^3/ul (0.83-4.51); Absolute Neutrophil Count 3.5 X10^3/uL (2.0-7.7); Basophil# 0.03 X10^3/uL; Basophil% 0.4 % (0-1); Eosinophil# 0.22 X10^3/uL; Eosinophils% 3.2 % (0-5); Hematocrit 34.1 % (37-47); Hemoglobin 11.1 g/dl (12.0-15.0); Lymphocyte # 2.68 X10^3/ul (4.0); Mean Corp Hgb Conc 32.6 g/gl (32-36); Mean Corpuscular Hgb 26.7 pg (27.0-32.0); Monocyte# 0.46 X10^3/uL; Monocyte% 6.7 % (0-10); Neutrophil # 3.48 X10^3/uL (2.7-7.7); Neutrophil % 50.6 % (47-70); Platelet Count 301 K/mm3 (150-450); RBC Distribution Width CV 15.1 % (11.6-14.6); RBC Distribution Width SD 45.1 fl (35.1-43.9); Red Blood Count 4.16 M/mm3 (4.2-5.4); White Blood Count 6.9 K/mm3 (4.4-11.0)
[2019-01-07 04:37] LABS: POSITIVE COUNT NO; POSITIVE DIFFERENTIAL NO; POSITIVE MORPHOLOGY NO
--- NOTE | 2019-01-07 04:45 | ED.DEP ---
ED Disposition - Plan for ED Patient: Instructions: Chronic Pancreatitis Prescriptions: Ondansetron [Zofran Odt] 4 mg PO Q8H PRN PRN #10 tab PRN Reason: Nausea Prescription Printed Referrals: Vanessa Abernathy DO [Primary Care Provider] -
[2019-01-07] MEDS: oxyCODONE 5 MG Tablet PO (04:52)
[2019-01-07 05:01] VITALS: BP 130/78; PULSE 79; RESP 18; O2SAT 97
== END 2019-01-07 05:02 | disposition home or self-care (01) ==
LOC: ED 03:45
PROVIDERS: Emergency Provider Emergency Medicine
DX: K86.1 Other chronic pancreatitis (principal); F10.99 Alcohol use, unspecified with unspecified alcohol-induced disorder
CPT/HCPCS: 80053; 83690; 85025; 96361; 96374; 96375; 99283; J7030; J2405

== ENCOUNTER 2019-01-16 01:32 | Emergency (ER) | payer SELFPAY ==
[2019-01-16 01:34] VITALS: BP 133/82; PULSE 98; RESP 16; TEMP 36.9; O2SAT 98; BMI 17.8
--- NOTE | 2019-01-16 02:05 | ED.DCSUM_ITS ---
- ER Visit Summary Date of Service: 01/16/19 Chief Complaint: Rash History of Present Illness: The patient is a 38 F who presents with a rash to her right shoulder that she noticed yesterday. Patient states the rash is in the similar location to prior episode of shingles. Patient states the rash feels similar. Patient states the rash feels like there is a burning sensation. Patient states it is worse with light palpation. Patient states nothing has helped it. Patient denies any difficulty breathing or difficulty swallowing. Physical Examination: Vital signs are stable. Patient is afebrile. Patient is in no acute distress. Skin is warm and dry. There is a erythematous area over the right T2 dermatome on the posterior aspect of the right shoulder. There are a few vesicles noted. There is no crusting or drainage noted. Sensation was intact to light touch in all dermatomes. Cranial nerves II through XII are intact. There are no focal motor or sensory deficits noted. Emergency Department Course and Treatment: The rash is consistent with varicella-zoster. Patient was given her first dose of acyclovir here. Patient states she is able to tolerate acyclovir. Patient given a prescription for acyclovir. Patient was instructed to follow-up with her primary care physician in 5 to 7 days. Patient understood and was agreeable with the plan. All questions were answered. Disposition: Discharge home Impression: 1. Varicella-zoster This note was generated with [employer] dictation software. It may contain incorrect words, spelling, and punctuation that were not noted in review of the chart prior to signing ED Disposition - Plan for ED Patient: Disposition: Home or Assisted Living Diagnosis: Varicella zoster Instructions: Shingles (Herpes Zoster) Prescriptions: Acyclovir [Zovirax] 800 mg PO 5X/DAY #35 tab Prescription Printed Referrals: Vanessa Abernathy DO [Primary Care Provider] - 5-7 Days
--- NOTE | 2019-01-16 02:21 | ED.RN ---
SPOKE WITH DR. POE AT THIS TIME ABOUT PATIENT REQUESTING PAIN MEDICATION. DOCTOR NOT WILLING TO GIVE MEDICATION AT THIS TIME
[2019-01-16] MEDS: Acyclovir 800 MG Tablet PO (02:25)
== END 2019-01-16 02:27 | disposition home or self-care (01) ==
LOC: ED 02:19
PROVIDERS: Emergency Provider Emergency Medicine
DX: B02.9 Zoster without complications (principal); R51 Headache; R11.0 Nausea; F60.3 Borderline personality disorder; F17.200 Nicotine dependence, unspecified, uncomplicated; Z79.899 Other long term (current) drug therapy
CPT/HCPCS: 99283

== ENCOUNTER 2019-01-29 21:03 | Emergency (ER) | payer SELFPAY ==
[2019-01-29 21:03] VITALS: BP 125/60; PULSE 120; RESP 15; TEMP 37.2; O2SAT 99; BMI 17.9
--- NOTE | 2019-01-29 21:18 | ED.RN ---
PT STATES SHE IS IN-BETWEEN MEDICAL INSURANCE COMPANIES AND SHE FEELS SHE SHOULD NOT STAY TO RECEIVE ANY TESTING. DENIES ADDITIONAL QUESTIONS OR CONCERNS AT THIS TIME.
--- NOTE | 2019-01-29 21:19 | ED.VISSUMM ---
- ER Visit Summary Date of Service: 01/29/19 Chief Complaint: Left flank pain History of Present Illness: The patient is a [address] Dawson. She reports that she has left flank pain that began 3 days ago. Is a sharp insulin 10 at worst and 7-10 currently. Is worsened by nothing. Is relieved by the position. She has had nausea without vomiting. No diarrhea. Last bowel was today. No melena hematochezia. She denies any dysuria frequency. However, she does report that she had hematuria and pressure. States this is similar to when she had kidney stones in the past. Physical Examination: Vitals: Stable. Afebrile. General: Well-nourished and well-developed. Head: Normocephalic atraumatic. Neck: Supple, no lymphadenopathy. No JVD. Nontender. Cardiovascular: Regular rate and rhythm. No murmurs. Respiratory: No respiratory distress. Clear to auscultation bilaterally. Abdominal: Soft, mild epigastric tenderness to palpation, nondistended, normal bowel sounds. No guarding, rebound, or peritoneal signs. Back: Nontender. Extremities: Nontender, no edema. Skin: Normal color, no rash. Neurologic: Alert and oriented ?3. Cranial nerves II through XII are intact. Normal strength and sensation. Psych: Normal affect. Test Results: I ordered a UA, CMP, lipase, and CBC. However, the patient left prior to having an IV started. Emergency Department Course and Treatment: I discussed the patient that I do not think that this is a kidney stone. She has had 3 CTs this year alone that do not show any renal stones. I offered to give her Zofran and ibuprofen. She was agreeable, but then walked out of the emergency department. Chart review shows that this is her 20th emergency department visit here this year. Her oars report shows that she has 42 prescriptions for opiates from 28 different doctors feel that 10 different pharmacies in the past year. Treatment Plan: Patient eloped. Disposition: Elopement Impression: 1. Left flank pain. 2. Elopement. This note was generated with [employer] software. It may contain incorrect words, spelling, and punctuation that were not noted in review of the chart prior to signing ED Disposition - Plan for ED Patient: Disposition: Home or Assisted Living Referrals: Vanessa Abernathy DO [Primary Care Provider] -
== END 2019-01-29 21:30 | disposition home or self-care (01) ==
LOC: ED 21:24
PROVIDERS: Emergency Provider Emergency Medicine
DX: R10.9 Unspecified abdominal pain (principal); R31.9 Hematuria, unspecified; R11.0 Nausea; Z72.0 Tobacco use; Z79.899 Other long term (current) drug therapy; Z87.442 Personal history of urinary calculi; Z87.19 Personal history of other diseases of the digestive system
CPT/HCPCS: 99283; J2405

== ENCOUNTER 2019-02-08 07:43 | Emergency (ER) | payer SELFPAY ==
[2019-02-08 07:44] VITALS: BP 119/91; PULSE 113; RESP 16; TEMP 36.4; O2SAT 100; BMI 17.8
--- NOTE | 2019-02-08 07:58 | RAD_ITS ---
STUDY: X-RAY - RIGHT HAND REASON FOR EXAM: Female, 38 years old. Pain and swelling overlying the third and fourth metacarpals following injury. TECHNIQUE: 3 view(s) of the hand. COMPARISON: None. FINDINGS: Normal radiocarpal articulation. Normal distal radioulnar joint. Normal visualized carpal bones. Normal carpal articulations Normal carpometacarpal articulation of the thumb. Normal second through fifth carpometacarpal joints. Normal metacarpi. Normal metacarpophalangeal joint of the thumb. Normal interphalangeal joint of the thumb. Normal proximal and distal phalanges of the thumb. Normal metacarpophalangeal joints of the second through fifth fingers. Normal proximal and distal interphalangeal joints of the second through fifth fingers. Normal phalanges of the second through fifth fingers. Soft tissue swelling. RAD/Hand Min 3 Views IMPRESSION: Soft tissue swelling. Electronically Signed: Owen Dykes, at 8:18 EDT , Service support ,
[2019-02-08] MEDS: HYDROcodone Bitartrate/Apap 5/325 Tablet PO (08:35)
--- NOTE | 2019-02-08 08:50 | ED.DCSUM_ITS ---
- ER Visit Summary Date of Service: 02/08/19 Chief Complaint: Hand injury History of Present Illness: The patient is a 38 F who is right-hand dominant. Her hand was caught between a horse has had an concrete when the horse was having a seizure. She complains of pain and swelling to the right hand especial ly over the third and fourth metacarpals. Physical Examination: Patient has soft tissue swelling and tenderness to the above-mentioned area. She is neurovascularly intact. Wrist is unremarkable. Test Results: X-rays were negative. Emergency Department Course and Treatment: Patient received pain meds while awai ting her x-rays. X-rays were unremarkable. Patient was splinted. Rest, ice, elevate. Uhlz-jer-orrnrok meds. Follow-up with primary care. Treatment Plan: As above Disposition: Discharge Impression: 1. Right hand contusion This note was generated with [employer] dictation software. It may contain incorrect words, spelling, and punctuation that were not noted in review of the chart prior to signing ED Disposition - Plan for ED Patient: Referrals: Vanessa Abernathy DO [Primary Care Provider] -
--- NOTE | 2019-02-08 08:51 | ED.DEP ---
ED Disposition - Plan for ED Patient: Instructions: CONTUSION, Hand Prescriptions: Naproxen [Naprosyn] 500 mg PO BID PRN #20 tab Prescription Printed Referrals: Vanessa Abernathy DO [Primary Care Provider] -
[2019-02-08 08:59] VITALS: PULSE 86; RESP 18; O2SAT 99
== END 2019-02-08 08:59 | disposition home or self-care (01) ==
LOC: ED 08:00
PROVIDERS: Emergency Provider Emergency Medicine
DX: S60.221A Contusion of right hand, initial encounter (principal); W23.0XXA Caught, crushed, jammed, or pinched between moving objects, initial encounter; Y93.K9 Activity, other involving animal care; Y92.9 Unspecified place or not applicable; Y99.9 Unspecified external cause status; Z79.899 Other long term (current) drug therapy; Z87.19 Personal history of other diseases of the digestive system
CPT/HCPCS: 73130; 99283

== ENCOUNTER 2019-03-02 23:04 | Emergency (ER) | payer SELFPAY ==
[2019-03-02 23:05] VITALS: BP 132/77; PULSE 106; RESP 18; TEMP 36.8; O2SAT 100
--- NOTE | 2019-03-02 23:13 | RAD_ITS ---
STUDY: X-RAY - LEFT SHOULDER REASON FOR EXAM: Female, 38 years old. Left shoulder pain after acute injury. TECHNIQUE: 4 view(s) of the shoulder. COMPARISON: None. FINDINGS: Normal glenohumeral articulation. Normal acromioclavicular joint. Normal acromion. Normal humeral head and visualized proximal humerus. The soft tissue structures are unremarkable. Normal visualized pulmonary apex. RAD/Shoulder min 2 Views IMPRESSION: Normal x-ray examination of the shoulder. Electronically Signed: Shamika Becker MD at 23:47 EDT , Service support ,
[2019-03-02] MEDS: HYDROcodone Bitartrate/Apap 5/325 Tablet PO (23:21)
[2019-03-02] MEDS: Ondansetron ODT 4 MG Tablet 8 MG PO (23:22)
--- NOTE | 2019-03-02 23:28 | RAD_ITS ---
STUDY: X-RAY - LEFT HAND REASON FOR EXAM: Female, 38 years old. Left hand pain after acute injury. TECHNIQUE: 3 view(s) of the hand. COMPARISON: None. FINDINGS: Normal radiocarpal articulation. Normal distal radioulnar joint. Normal visualized carpal bones. Normal carpal articulations Normal carpometacarpal articulation of the thumb. Normal second through fifth carpometacarpal joints. Normal metacarpi. Normal metacarpophalangeal joint of the thumb. Normal interphalangeal joint of the thumb. Normal proximal and distal phalanges of the thumb. Normal metacarpophalangeal joints of the second through fifth fingers. Normal proximal and distal interphalangeal joints of the second through fifth fingers. Normal phalanges of the second through fifth fingers. The soft tissue structures are unremarkable. RAD/Hand Min 3 Views IMPRESSION: Normal x-ray examination of the hand. Electronically Signed: Shamika Becker MD at 23:47 EDT , Service support ,
--- NOTE | 2019-03-02 23:57 | ED.VISSUMM ---
- ER Visit Summary Date of Service: 03/02/19 Chief Complaint: Pain History of Present Illness: The patient is a 38 F with left hand pain and left shoulder pain after she was head butted by a cow and she pulled her arm away, injuring her left shoulder. Physical Examination: Anterior left shoulder is tender to palpation. No deformity. Pain is worse with range of motion. Range of motion otherwise intact. Left hand tender to palpation over the third and fourth MCP joints. Overlying swelling and bruising noted. Neurovascularly intact distally. The remainder of her exam is unremarkable. Test Results: Three-view hand x-ray and 4 view shoulder x-ray reviewed by me and the radiologist. No acute abnormalities. Emergency Department Course and Treatment: Patient treated with [place] and Zofran. She will receive a short course of pain and nausea medicine. AlumaFoam splint was placed by nursing. Follow-up with primary care. Treatment Plan: As above Disposition: Discharge Impression: 1. Left shoulder pain 2. Left hand pain This note was generated with [employer] dictation software. It may contain incorrect words, spelling, and punctuation that were not noted in review of the chart prior to signing ED Disposition - Plan for ED Patient: Referrals: Vanessa Abernathy DO [Primary Care Provider] -
--- NOTE | 2019-03-02 23:59 | DCINST.ED_ITS ---
ED Disposition - Plan for ED Patient: Instructions: CONTUSION, Upper Extremity Prescriptions: Hydrocodone Bitart/Apap 5-325 [[place] 5MG-325MG] 1 tab PO Q6H PRN PRN 3 Days #12 tab PRN Reason: Pain Prescription Printed Ondansetron [Zofran Odt] 4 mg PO Q8H PRN PRN #10 tab PRN Reason: Nausea Prescription Printed Referrals: Vanessa Abernathy DO [Primary Care Provider] -
[2019-03-03 00:13] VITALS: RESP 16
--- NOTE | 2019-03-03 00:17 | ED.RN ---
REVIEWED D/C INSTRUCTIONS, FOLLOW UP CARE, PRESCRIPTIONS, AND S/S THAT WOULD WARRANT A RETURN TO THE ED WITH PT. PT VERBALIZED AN UNDERSTANDING AND DENIES FURTHER QUESTIONS FOR THIS RN. PT SKIN P/W/D, RESP EVEN AND UNLABORED, PT A&O X 3, NO DISTRESS NOTED.
== END 2019-03-03 00:20 | disposition home or self-care (01) ==
PROVIDERS: Emergency Provider Emergency Medicine
DX: M25.512 Pain in left shoulder (principal); M79.642 Pain in left hand; W55.22XA Struck by cow, initial encounter; Y93.9 Activity, unspecified; Y92.9 Unspecified place or not applicable; Y99.9 Unspecified external cause status; Z79.899 Other long term (current) drug therapy; Z87.19 Personal history of other diseases of the digestive system
CPT/HCPCS: 73030; 73130; 99284

== ENCOUNTER 2019-03-17 21:29 | Emergency (ER) | payer SELFPAY ==
[2019-03-17 21:30] VITALS: BP 130/78; PULSE 119; RESP 16; TEMP 36.6; O2SAT 97; BMI 18.1
--- NOTE | 2019-03-17 21:43 | ED.DCSUM_ITS ---
- ER Visit Summary Date of Service: 03/17/19 Chief Complaint: Abdominal pain History of Present Illness: The patient is a 38 F who presents with abdominal pain. Patient states she has a history of pancreatitis and cholelithiasis. Patient states she last drank alcohol 2 days ago. Patient states she had 6 beers at that time. Patient states this pain feels similar to prior pancreatitis pain. Patient admits to nausea and vomiting. Patient denies any hematemesis or coffee-ground emesis. Patient admits to diarrhea. Patient denies any melena or hematochezia. Patient denies any dysuria or hematuria but admits to some urinary frequency. Physical Examination: Vital signs are stable except for mild tachycardia of 119. Patient is afebrile. Patient is in no acute distress. Oral mucosa is pink and moist. Neck is supple. Trachea is midline. There is no JVD noted. Heart was regular and tachycardic. Lungs are clear and equal bilaterally. Abdomen is soft. Bowel sounds are normal. There is tenderness of the epigastric area and right upper quadrant. There is no rebound or guarding noted. Cranial nerves II through XII are intact. There are no focal motor or sensory deficits noted. Test Results: CBC showed a mild anemia with hemoglobin 11.1 and hematocrit 33.8. This is consistent with prior results. Comprehensive metabolic profile was essentially within normal limits. Glucose was slightly elevated at 108. Lipase was normal. Emergency Department Course and Treatment: Patient was given IV fluids and Zofran here. Patient was also given a dose of morphine here. Patient was feeling better on reevaluation. Patient was instructed to start with a liquid diet then advance to a bland diet and regular diet if she starts to feel better. Patient was instructed to follow-up with her primary care physician in 5 to 7 days. Patient was given a prescription for Zofran. Patient understood and was agreeable with the plan. All questions were answered. Disposition: Discharge home Impression: Epigastric abdominal pain This note was generated with [employer] dictation software. It may contain incorrect words, spelling, and punctuation that were not noted in review of the chart prior to signing ED Disposition - Plan for ED Patient: Disposition: Home or Assisted Living Diagnosis: Epigastric abdominal pain Instructions: ABDOMINAL PAIN, Unknown Cause, (Female) Prescriptions: Ondansetron [Zofran Odt] 4 mg PO Q8H PRN PRN #10 tab PRN Reason: Nausea Prescription Printed Referrals: Vanessa Abernathy DO [Primary Care Provider] - 3-5 Days
[2019-03-17] MEDS: 0.9% Normal Saline 1,000 ML 1000 ML IV (22:00)
[2019-03-17] MEDS: Ondansetron 4 MG/2 ML Vial IV (22:00)
[2019-03-17 22:03] LABS: Absolute Lymphocyte Count 2.03 X10^3/uL (0.83-4.51); Absolute Neutrophil Count 6.1 X10^3/uL (2.0-7.7); Basophil# 0.05 X10^3/uL; Basophil% 0.6 % (0-1); Eosinophils% 1.1 % (0-5); Hematocrit 33.8 % (37-47); Hemoglobin 11.1 g/dL (12.0-15.0); Lymphocyte # 2.03 X10^3/ul (4.0); Mean Corp Hgb Conc 32.8 g/dL (32-36); Mean Corpuscular Hgb 26.4 pg (27.0-32.0); Mean Corpuscular Volume 80.5 fL (81-99); Monocyte# 0.48 X10^3/uL; Monocyte% 5.4 % (0-10); NRBC Flagged by Analyzer 0 % (0-5); Neutrophil # 6.13 X10^3/uL (2.7-7.7); Neutrophil % 69.7 % (47-70); Platelet Count 303 K/mm3 (150-450); RBC Distribution Width CV 14.8 % (11.6-14.6); RBC Distribution Width SD 43.5 fl (35.1-43.9); White Blood Count 8.8 K/mm3 (4.4-11.0)
[2019-03-17] MEDS: Morphine 4 MG/ML Syringe IV (22:08)
[2019-03-17 22:20] LABS: ALB/GLOB Ratio 1.2 RATIO (0.9-2.4); AST(SGOT) 18 U/L (15-37); Alanine Aminotransfer ALT/SGPT 20 U/L (13-56); Albumin, Serum 3.9 g/dL (3.2-5.0); Alkaline Phosphatase 88 U/L (45-117); Anion Gap 7 (5-15); BUN 9 mg/dL (7-18); BUN/Creat Ratio 9.7 RATIO (10-20); Calcium,Total 8.7 mg/dL (8.5-10.1); Chloride 106 mmol/L (98-107); Creatinine, Serum 0.93 mg/dL (0.55-1.02); EST Glomerular Filtration Rate 71 mL/min (>60); Est Glom Filt Rate - Afr Amer 86 mL/min (>60); Estimated Creatinine Clearance 69.62 ml/min; Globulin 3.3 g/dL (2.2-4.2); Glucose 108 mg/dL (74-106); Lipase 118 U/L (73-393); Potassium 3.9 mmol/L (3.5-5.1); Protein, Total 7.2 g/dL (6.4-8.2); Sodium Level 139 mmol/L (136-145)
[2019-03-17 22:25] VITALS: RESP 16
== END 2019-03-17 22:34 | disposition home or self-care (01) ==
PROVIDERS: Emergency Provider Emergency Medicine
DX: R10.13 Epigastric pain (principal); R11.2 Nausea with vomiting, unspecified; R19.7 Diarrhea, unspecified; R35.0 Frequency of micturition; D64.9 Anemia, unspecified; R73.09 Other abnormal glucose; R00.0 Tachycardia, unspecified; Z72.0 Tobacco use; Z79.899 Other long term (current) drug therapy; Z87.19 Personal history of other diseases of the digestive system
CPT/HCPCS: 80053; 83690; 85025; 96361; 96374; 96375; 99285; J7030; A4216; J2405

== ENCOUNTER 2019-03-26 20:44 | Emergency (ER) | payer SELFPAY ==
[2019-03-26 20:46] VITALS: BP 119/85; PULSE 100; RESP 16; TEMP 36.5; O2SAT 100; BMI 18.1
--- NOTE | 2019-03-26 21:14 | ED.VIS.GEN ---
History of Present Illness Chief Complaint: Rash Informant: Patient Onset: Yesterday Current Severity: Moderate Maximum Severity: Moderate Narrative: Patient presents with burning sensation to the right flank area and rash. She has history of shingles. This episode started yesterday. Past Medical History - Allergies and Home Meds Allergies/Adverse Reactions: Allergies ketorolac [From Toradol] Allergy (Verified 03/26/19 20:45) Itching valacyclovir Allergy (Verified 03/26/19 20:45) Itching Primary Care Physician: Vanessa Abernathy DO [Primary Care Provider] - 1 Week if not improving Prior records reviewed: Yes Past Medical History: - - Reviewed Smoking Status: Current every day smoker Alcohol: Occasional Review of Systems General: Denies: Chills, Fever Eyes: Denies: Visual changes - bilaterally ENT: Denies: Bilateral ear pain Cardiovascular: Denies: Chest pain Respiratory: Denies: Dyspnea, Cough Gastrointestinal: Denies: Abdominal pain, Nausea, Vomiting Musculoskeletal: Reports: Back pain Skin: Reports: Rash Neurological: Denies: Headache Hematologic: Denies: Easy bruising Allergy: Denies: Uticaria Physical Exam Vital Signs/Narrative: Vital Signs Temp Pulse Resp BP Pulse Ox 03/26/19 20:46 97.7 F L 100 16 119/85 H 100 Inital Vital Signs reviewed: Yes General: Well nourished, Well developed Head: Normocephalic ENT: Moist mucous membranes Neck: Supple Cardiovascular: Regular rate, Regular rhythm Respiratory: No distress, CTA bilaterally Abdomen: Soft, Nontender Extremities: Nontender Skin: - - Patient has erythema to the right flank with small blister lesions consistent with varicella-zoster. Neurological: Alert, Oriented x3 Psychological: Normal affect Diagnostic/Tx/Re-eval - Medical Decision Making Patient has recurrent shingles. She has a documented allergy to valacyclovir but is done well with acyclovir in the past. She is given prescriptions for acyclovir, prednisone, and Percocet for pain. ED Disposition - Plan for ED Patient: Disposition: Home or Assisted Living Diagnosis: Shingles Instructions: Shingles (Herpes Zoster) Prescriptions: Oxycodone HCl/Acetaminophen [Percocet 5/325] 1 tab PO Q6H PRN PRN 3 Days #12 tab PRN Reason: Pain Prescription Printed Prednisone 10 mg PO UD #33 tab Prescription Printed Acyclovir [Zovirax] 800 mg PO 5X/DAY #35 tab Prescription Printed Referrals: Vanessa Abernathy DO [Primary Care Provider] - 1 Week if not improving
[2019-03-26] MEDS: predniSONE 20 MG Tablet 40 MG PO (21:26)
[2019-03-26] MEDS: Acyclovir 800 MG Tablet PO (21:26)
[2019-03-26] MEDS: oxyCODONE 5 MG Tablet PO (21:26)
[2019-03-26 21:29] VITALS: BP 119/85; PULSE 100; RESP 16; O2SAT 100
== END 2019-03-26 21:29 | disposition home or self-care (01) ==
LOC: ED 21:22
PROVIDERS: Emergency Provider Emergency Medicine
DX: B02.9 Zoster without complications (principal); F17.200 Nicotine dependence, unspecified, uncomplicated; Z79.899 Other long term (current) drug therapy
CPT/HCPCS: 99283

== ENCOUNTER 2019-04-06 14:21 | Emergency (ER) | payer SELFPAY ==
[2019-04-06 14:21] VITALS: BP 123/77; PULSE 100; RESP 16; TEMP 36.8; O2SAT 100; BMI 17.4
[2019-04-06] MEDS: 0.9% Normal Saline 1,000 ML 1000 ML IV (15:10)
[2019-04-06] MEDS: Morphine 4 MG/ML Syringe IV ×2 (15:11→16:42)
[2019-04-06] MEDS: Ondansetron 4 MG/2 ML Vial IV ×2 (15:11→16:42)
--- NOTE | 2019-04-06 15:19 | NURSING ---
CHEMISTRIES HEMOLIZED
[2019-04-06 15:20] LABS: Absolute Neutrophil Count 6.1 X10^3/uL (2.0-7.7); Basophil# 0.05 X10^3/uL; Basophil% 0.6 % (0-1); Eosinophil# 0.07 X10^3/uL; Eosinophils% 0.8 % (0-5); Hematocrit 37.2 % (37-47); Hemoglobin 11.4 g/dL (12.0-15.0); Lymphocyte % 19.1 % (19-41); Mean Corp Hgb Conc 30.6 g/dL (32-36); Mean Corpuscular Hgb 24.5 pg (27.0-32.0); Mean Corpuscular Volume 79.8 fL (81-99); Mean Platelet Vol. 8.9 fl (6.2-12.0); NRBC Flagged by Analyzer 0 % (0-5); Neutrophil # 6.12 X10^3/uL (2.7-7.7); Neutrophil % 73.1 % (47-70); Platelet Count 288 K/mm3 (150-450); RBC Distribution Width CV 15.2 % (11.6-14.6); RBC Distribution Width SD 43.8 fl (35.1-43.9); Red Blood Count 4.66 M/mm3 (4.2-5.4); White Blood Count 8.4 K/mm3 (4.4-11.0)
[2019-04-06 16:20] LABS: ALB/GLOB Ratio 1.4 RATIO (0.9-2.4); AST(SGOT) 17 U/L (15-37); Alanine Aminotransfer ALT/SGPT 19 U/L (13-56); Albumin, Serum 4.2 g/dL (3.2-5.0); Alkaline Phosphatase 84 U/L (45-117); Anion Gap 7 (5-15); BUN 11 mg/dL (7-18); BUN/Creat Ratio 13.1 RATIO (10-20); Calcium,Total 8.8 mg/dL (8.5-10.1); Chloride 107 mmol/L (98-107); Creatinine, Serum 0.84 mg/dL (0.55-1.02); EST Glomerular Filtration Rate 80 mL/min (>60); Est Glom Filt Rate - Afr Amer 97 mL/min (>60); Estimated Creatinine Clearance 74.04 ml/min; Glucose 94 mg/dL (74-106); Lipase 133 U/L (73-393); Potassium 4.4 mmol/L (3.5-5.1); Protein, Total 7.2 g/dL (6.4-8.2); Sodium Level 138 mmol/L (136-145)
[2019-04-06 16:22] VITALS: BP 114/70; PULSE 81; RESP 15; O2SAT 100
--- NOTE | 2019-04-06 16:46 | ED.DCSUM_ITS ---
- ER Visit Summary Date of Service: 04/06/19 Chief Complaint: Abdominal pain History of Present Illness: The patient is a 38 F who presents with epigastric and right upper quadrant abdominal pain that has been getting worse over the past 24 hours. Patient states the pain is sharp. Patient states pain is over the epigastric and right upper quadrant areas. Patient admits to some nausea, vomiting, and diarrhea. Patient denies any hematemesis or coffee-ground emesis. Patient denies any melena or hematochezia. Patient admits to some chills and sweats. Patient does admit to drinking alcohol recently. Patient states she had an outpatient lab drawn which showed an elevated lipase of over 400. Patie nt states she is scheduled to see a surgeon regarding her gallbladder. Patient states she has sludge in her gallbladder. Physical Examination: Vital signs are stable. Patient is afebrile. Patient is in no acute distress. Oral mucosa is pink and moist. Neck is supple. Trachea is midline. There is no JVD noted. Heart was regular rate and rhythm. Lungs are clear and equal bilaterally. Abdomen is soft. There is right upper quadrant and epigastric tenderness. There is no rebound or guarding noted. Cranial nerves II through XII are intact. There are no focal motor or sensory deficits noted. Test Results: CBC, comprehensive metabolic profile, and lipase were obtained were all within normal limits. Emergency Department Course and Treatment: Patient was given IV fluids here. Patient was given morphine and Zofran. Patient was still having some pain after this. Patient was given a repeat dose of morphine and Zofran. Patient was instructed to follow-up with her primary care physician and surgeon as scheduled. Patient was instructed to avoid alcohol. Patient was instructed to return if worse in any way. Patient understood and was agreeable with the plan. All questions were answered. Disposition: Discharge home Impression: Right upper quadrant abdominal pain This note was generated with iodine dictation software. It may contain incorrect words, spelling, and punctuation that were not noted in review of the chart prior to signing ED Disposition - Plan for ED Patient: Disposition: Home or Assisted Living Diagnosis: Right upper quadrant abdominal pain Instructions: BILIARY COLIC with Gallstone (Presumed), Chronic Pancreatitis Referrals: Vanessa Abernathy DO [Primary Care Provider] - 3-5 Days
== END 2019-04-06 17:02 | disposition home or self-care (01) ==
PROVIDERS: Emergency Provider Emergency Medicine
DX: R10.11 Right upper quadrant pain (principal); R11.2 Nausea with vomiting, unspecified; R19.7 Diarrhea, unspecified; R74.8 Abnormal levels of other serum enzymes; F60.3 Borderline personality disorder; Z72.0 Tobacco use; Z79.899 Other long term (current) drug therapy; Z87.19 Personal history of other diseases of the digestive system
CPT/HCPCS: 80053; 83690; 85025; 96361; 96374; 96375; 96376; 99285; J7030; A4216; J2405

== ENCOUNTER 2019-04-17 00:57 | Emergency (ER) | payer SELFPAY ==
[2019-04-17 00:58] VITALS: BP 141/73; PULSE 97; RESP 15; TEMP 36.8; O2SAT 100; BMI 18.0
--- NOTE | 2019-04-17 01:22 | ED.VIS.GEN ---
History of Present Illness Chief Complaint: Abd Pain Informant: Patient Narrative: Patient has chronic abdominal pain due to chronic pancreatitis. Last alcohol was yesterday. Over the last 12 hours she is had epigastric pancreatic abdominal pain. She describes aching burning sensation. She is tried Bentyl. She has had nausea with vomiting. She does have colonic sludge that she is going to see outpatient surgeon. She has had multiple visits with CAT scans in the past year. Current severity is mild to moderate. - Past Medical History (1) Alcoholic pancreatitis Status: Chronic (2) Alcoholism Status: Chronic (3) Depression Status: Chronic Past Medical History - Allergies and Home Meds Allergies/Adverse Reactions: Allergies ketorolac [From Toradol] Allergy (Verified 04/17/19 01:03) Itching valacyclovir Allergy (Verified 04/17/19 01:03) Itching Primary Care Physician: Vanessa Abernathy DO [Primary Care Provider] - Prior records reviewed: Yes Past Medical History: - - See problem list Surgical History: - - Abdominal laparoscopy Lives: With Family Smoking Status: Current every day smoker Alcohol: None Drugs: None Review of Systems General: Denies: Chills, Fever, Sweats Eyes: Denies: Visual changes - bilaterally, Diplopia ENT: Denies: Rhinorrhea, Sore throat Cardiovascular: Denies: Chest pain, Palpitations Respiratory: Denies: Dyspnea, Cough, Dyspnea on exertion, Paroxysmal nocturnal dyspnea Gastrointestinal: Reports: Abdominal pain, Nausea, Vomiting. Denies: Diarrhea, Melena, Hematochezia Genitourinary: Denies: Dysuria, Hematuria, Frequency Musculoskeletal: Denies: Back pain, Extremity Pain Skin: Denies: Rash, Wounds Neurological: Denies: Headache, Weakness, Numbness Physical Exam Vital Signs/Narrative: Vital Signs Temp Pulse Resp BP Pulse Ox 04/17/19 00:58 98.3 F 97 15 141/73 H 100 General: Well nourished, Well developed, No Acute Distress Head: Normocephalic, Atraumatic Eyes: Perrl, EOMI ENT: Moist mucous membranes, No rhinorrhea Neck: Supple, Nontender Cardiovascular: Regular rate, Regular rhythm, No murmurs Respiratory: No distress, CTA bilaterally, Chest nontender Abdomen: Soft, Nondistended, Normal bowel sounds, Tender - Gastric tenderness. Negative for: Guarding, Rebound tenderness Back: Nontender, Normal Inspection Extremities: Nontender, No edema Skin: Normal color, No rash Neurological: Alert, Oriented x3, Cranial nerves II-XII grossly intact, Normal Strength, Normal Sensation Psychological: Normal affect, Normal Mood Diagnostic/Tx/Re-eval - Medical Decision Making Patient offered IV fluids Zofran and ibuprofen. She agreed to this. I told her I would not give her narcotics. After leaving the room she took her things and left. At this time I think she has significant narcotic seeking behavior ED Disposition - Plan for ED Patient: Diagnosis: Epigastric abdominal pain Referrals: Vanessa Abernathy DO [Primary Care Provider] -
--- NOTE | 2019-04-17 01:36 | ED.RN ---
PT LEFT AFTER SEEING DOCTOR; SHE WAS WALKING OUT OF THE ROOM SHE WAS ASKED IF SHE WAS RETURNING HER RESPONSE WAS YES. SHE WAS NOTED BY SECURITY TO HAVE LEFT IN HER CAR.
== END 2019-04-17 01:39 | disposition left against medical advice (07) ==
PROVIDERS: Emergency Provider Emergency Medicine
DX: R10.13 Epigastric pain (principal); G89.29 Other chronic pain; K86.0 Alcohol-induced chronic pancreatitis; F10.20 Alcohol dependence, uncomplicated; F32.9 Major depressive disorder, single episode, unspecified; F17.200 Nicotine dependence, unspecified, uncomplicated; Z79.899 Other long term (current) drug therapy
CPT/HCPCS: 99281

== ENCOUNTER 2019-05-04 18:34 | Emergency (ER) | payer SELFPAY ==
[2019-05-04 18:35] VITALS: BP 126/103; PULSE 113; RESP 20; TEMP 36.2; O2SAT 97; BMI 17.8
--- NOTE | 2019-05-04 18:40 | RAD_ITS ---
STUDY: X-RAY - UNILATERAL RIBS ( RIGHT ) WITH CHEST REASON FOR EXAM: Female, 39 years old. FALL. RIGHT SIDED RIB PAIN. TECHNIQUE - RIBS: 4 view(s) of the ribs. TECHNIQUE - CHEST: Single PA view of the chest. COMPARISON: None. FINDINGS - RIBS: Normal visualized ribs without a demonstrated fracture. FINDINGS - CHEST: The lungs are clear and expanded. There is no demonstrated pleural abnormality. Normal size heart. Normal mediastinum and zander. Normal visualized pulmonary arteries. Normal visualized aortic arch and descending thoracic aorta. Normal visualized thoracic spine. Normal visualized ribs, clavicles, and shoulders. There is no demonstrated abnormality of the visualized soft tissue structures of the upper abdomen. RAD/Ribs Uni Min 3V w/PA Chest IMPRESSION: RIBS: Normal x-ray examination of the ribs. CHEST: Normal x-ray examination of the chest. Electronically Signed: Clint Burnette MD at 19:45 EDT , Service support ,
--- NOTE | 2019-05-04 18:40 | CT_ITS ---
STUDY: CT CERVICAL SPINE WITHOUT CONTRAST REASON FOR EXAM: Female, 39 years old. FALL DOWN STAIRS. lT SHOULDER AND RIB PAIN RADIATION DOSAGE (If Supplied By Facility): CTDIvol = ( 11.97 ) mGy, DLP = ( 204.05 ) mGycm TECHNIQUE: High resolution transaxial imaging was performed without contrast material. Sagittal and coronal images were reconstructed. Individualized dose optimization techniques were used for this CT. COMPARISON: None FINDINGS: Normal craniovertebral junction. Normal anterior atlantoaxial articulation. Normal odontoid process. Normal cervical lordosis. No fracture is seen. No visualized compression deformity. Mild multilevel degenerative changes are present. Mild to moderate disc space narrowing and degenerative changes are present at C5-C6. Normal central canal. Normal visualized soft tissue structures. CT/Spine Cervical without Contras IMPRESSION: Multilevel degenerative changes, as described above. Electronically Signed: Clint Burnette MD at 19:12 EDT , Service support ,
--- NOTE | 2019-05-04 18:40 | RAD_ITS ---
STUDY: X-RAY - LEFT HAND REASON FOR EXAM: Female, 39 years old. FALL. PAIN ON 2ND DIGIT. BRUISING AND SWELLING. TECHNIQUE: 3 view(s) of the hand. COMPARISON: None. FINDINGS: Normal radiocarpal articulation. Normal distal radioulnar joint. Normal visualized carpal bones. Normal carpal articulations Normal carpometacarpal articulation of the thumb. Normal second through fifth carpometacarpal joints. Normal metacarpi. No visualized fracture or displaced fragment. The soft tissue structures are unremarkable. RAD/Hand Min 3 Views IMPRESSION: Normal x-ray examination of the hand. Electronically Signed: Clint Burnette MD at 19:45 EDT , Service support ,
--- NOTE | 2019-05-04 18:40 | RAD_ITS ---
STUDY: X-RAY - LEFT SHOULDER REASON FOR EXAM: Female, 39 years old. Shoulder pain after fall injury TECHNIQUE: 2 view(s) of the shoulder. COMPARISON: None. FINDINGS: Normal glenohumeral articulation. Normal acromioclavicular joint. Normal acromion. Normal humeral head and visualized proximal humerus. The soft tissue structures are unremarkable. There is no demonstrated fracture. Normal visualized pulmonary apex. RAD/Shoulder min 2 Views IMPRESSION: Normal x-ray examination of the shoulder. Electronically Signed: Clint Burnette MD at 19:48 EDT , Service support ,
--- NOTE | 2019-05-04 18:40 | CT_ITS ---
STUDY: CT BRAIN WITHOUT CONTRAST REASON FOR EXAM: Female, 39 years old. FALL DOWN STAIRS. lT SHOULDER AND RIB PAIN head trauma RADIATION DOSAGE (If Supplied By Facility): CTDIvol = ( 44.99 ) mGy, DLP = ( 829.85 ) mGycm TECHNIQUE: Transaxial CT imaging of the brain was performed without administration of intravenous contrast material. Individualized dose optimization techniques were used for this CT. COMPARISON: None. FINDINGS: Normal soft tissue structures. Normal calvarium. No visualized fractures. No focal parenchymal edema seen by CT criteria. No midline shift. No hydrocephalus. Normal size ventricles and extra-axial spaces for the patient's age. Normal white matter tracts of the cerebral hemispheres. Normal basal ganglia and thalami. Normal brainstem. Normal cerebellum. There is no intracranial hemorrhage. There are no findings of an acute ischemic infarction. Normal visualized paranasal sinuses. CT/Brain/Head without Contrast IMPRESSION: Negative exam for an acute or significant intracranial process. Electronically Signed: Clint Burnette MD at 19:05 EDT , Service support ,
--- NOTE | 2019-05-04 19:55 | CT_ITS ---
STUDY: CT chest abdomen and pelvis with contrast REASON FOR EXAM: Female, 39 years old. Trauma RADIATION DOSAGE (If Supplied By Facility): DLP = ( 704.27 ) mGycm TECHNIQUE: Transaxial imaging was performed following intravenous administration of 100ML ml of 100mL Isovue-370 contrast material. Coronal and sagittal reformatted images were created. Individualized dose optimization techniques were used for this CT. COMPARISON: CT abdomen pelvis September 09, 2018 FINDINGS: There are no pulmonary infiltrates or pleural effusions. There are no pulmonary nodules or masses. There is no pneumothorax. The heart and pericardium are within normal limits. There is no thoracic lymphadenopathy. There is no evidence of thoracic aortic aneurysm. The liver, gallbladder, pancreas, spleen, adrenal glands, and kidneys are normal in appearance. There is no evidence of bowel obstruction or inflammation. There is no lymphadenopathy. There is no free fluid or free air present. There are no destructive osseous lesions. CT/Chest WITH Contrast IMPRESSION: No evidence of acute pathology in the chest, abdomen, or pelvis. Electronically Signed: Amanuel Tam, at 20:52 EDT Tel , Service support ,
--- NOTE | 2019-05-04 19:55 | CT_ITS ---
STUDY: CT chest abdomen and pelvis with contrast REASON FOR EXAM: Female, 39 years old. Trauma RADIATION DOSAGE (If Supplied By Facility): DLP = ( 704.27 ) mGycm TECHNIQUE: Transaxial imaging was performed following intravenous administration of 100ML ml of 100mL Isovue-370 contrast material. Coronal and sagittal reformatted images were created. Individualized dose optimization techniques were used for this CT. COMPARISON: CT abdomen pelvis September 09, 2018 FINDINGS: There are no pulmonary infiltrates or pleural effusions. There are no pulmonary nodules or masses. There is no pneumothorax. The heart and pericardium are within normal limits. There is no thoracic lymphadenopathy. There is no evidence of thoracic aortic aneurysm. The liver, gallbladder, pancreas, spleen, adrenal glands, and kidneys are normal in appearance. There is no evidence of bowel obstruction or inflammation. There is no lymphadenopathy. There is no free fluid or free air present. There are no destructive osseous lesions. CT/Abdomen/Pelvis W IV Cont ONLY IMPRESSION: No evidence of acute pathology in the chest, abdomen, or pelvis. Electronically Signed: Amanuel Tam, at 20:52 EDT Tel , Service support ,
--- NOTE | 2019-05-04 19:56 | ED.VISSUMM ---
- ER Visit Summary Date of Service: 05/04/19 Chief Complaint: Fall History of Present Illness: The patient is a 39 F presenting after fall. Patient states she was startled when she was walking down the steps and slipped and fell. She landed on her right side. She was holding onto the banister with her left arm and hyperextended her left arm. She did hit her head but did not lose consciousness. She is not on anticoagulants. She complains of pain in right chest wall, left shoulder, left index finger. Physical Examination: Vitals are stable. Patient is afebrile. Alert no acute distress. HEENT exam is unremarkable. Neck is left paraspinal cervical muscle tenderness Lungs are clear and equal bilaterally. Right chest wall tenderness with no crepitus Heart is regular rate and rhythm. Abdomen is soft right upper quadrant tenderness with no guarding or rebound Extremities left shoulder diffuse tenderness, left index finger tenderness, active full range of motion. Skin is warm and dry. No focal neurologic deficit. Remainder of exam is unremarkable. Emergency Department Course and Treatment: Patient was given morphine, Zofran IV. Right rib series shows no fracture. Left hand and shoulder x-rays show no fracture. CT head and neck show no acute process. CT chest abdomen pelvis shows no evidence of acute pathology in the chest, abdomen, or pelvis. Patient continues to complain of pain and was given an additional dose of morphine. She is given an incentive spirometer. She is given a sling and advised range of motion exercises. She is advised to follow-up with primary care physician. She is given a short course of [place]. Advised to return to the ED for worsening complaints. Disposition: Discharge home Impression: Status post fall, right rib contusion, left shoulder sprain, left index finger contusion This note was generated with Pikhub dictation software. It may contain incorrect words, spelling, and punctuation that were not noted in review of the chart prior to signing ED Disposition - Plan for ED Patient: Instructions: Rib Contusion, Shoulder Sprain Prescriptions: Hydrocodone Bitart/Apap 5-325 [[place] 5MG-325MG] 1 tab PO Q6H PRN PRN 3 Days #10 tab PRN Reason: Pain Prescription Printed Referrals: Vanessa Abernathy DO [Primary Care Provider] -
[2019-05-04 20:08] VITALS: BP 127/84; PULSE 99; RESP 18; O2SAT 98
[2019-05-04 20:10] VITALS: O2SAT 98
[2019-05-04] MEDS: Ondansetron 4 MG/2 ML Vial IV (20:13)
[2019-05-04] MEDS: Morphine 4 MG/ML Syringe IV ×2 (20:13→21:32)
--- NOTE | 2019-05-04 21:59 | ED.DEP ---
ED Disposition - Plan for ED Patient: Instructions: Shoulder Sprain, Rib Contusion Prescriptions: Hydrocodone Bitart/Apap 5-325 [[place] 5MG-325MG] 1 tablet PO Q6H PRN PRN 3 Days #10 tablet PRN Reason: Pain Referrals: Vanessa Abernathy DO [Primary Care Provider] -
--- NOTE | 2019-05-04 22:07 | DCINST.ED_ITS ---
ED Disposition - Plan for ED Patient: Instructions: Rib Contusion, Shoulder Sprain Prescriptions: Hydrocodone Bitart/Apap 5-325 [[place] 5MG-325MG] 1 tab PO Q6H PRN PRN 3 Days #10 tab PRN Reason: Pain Prescription Printed Referrals: Vanessa Abernathy DO [Primary Care Provider] - Aurelia Russo [NON-STAFF] -
[2019-05-04 22:23] VITALS: BP 126/89; PULSE 90; RESP 18; O2SAT 98
== END 2019-05-04 22:24 | disposition home or self-care (01) ==
LOC: ED 20:22
PROVIDERS: Emergency Provider Emergency Medicine
DX: S20.211A Contusion of right front wall of thorax, initial encounter (principal); S63.611A Unspecified sprain of left index finger, initial encounter; S43.402A Unspecified sprain of left shoulder joint, initial encounter; W10.9XXA Fall (on) (from) unspecified stairs and steps, initial encounter; Y93.01 Activity, walking, marching and hiking; Y92.9 Unspecified place or not applicable; Z72.0 Tobacco use
CPT/HCPCS: 70450; 71101; 71260; 72125; 73030; 73130; 74177; 96374; 96375; 96376; 99285; Q9967; A4216; J2405

== ENCOUNTER 2019-05-19 16:42 | Emergency (ER) | payer MEDICAID, SELFPAY ==
[2019-05-19 16:43] VITALS: BP 132/86; PULSE 94; RESP 15; TEMP 36.7; O2SAT 100; BMI 18.5
[2019-05-19] MEDS: Ondansetron 4 MG/2 ML Vial IV (17:35)
[2019-05-19] MEDS: 0.9% Normal Saline 1,000 ML 1000 ML IV (17:35)
[2019-05-19] MEDS: Morphine 4 MG/ML Syringe IV ×2 (17:35→18:36)
[2019-05-19 17:39] LABS: Absolute Lymphocyte Count 1.13 X10^3/uL (0.83-4.51); Absolute Neutrophil Count 5.1 X10^3/uL (2.0-7.7); Basophil# 0.03 X10^3/uL; Basophil% 0.5 % (0-1); Eosinophil# 0.04 X10^3/uL; Eosinophils% 0.6 % (0-5); Hemoglobin 11.1 g/dL (12.0-15.0); Lymphocyte # 1.13 X10^3/ul (4.0); Lymphocyte % 17.1 % (19-41); Mean Corpuscular Hgb 23.9 pg (27.0-32.0); Mean Corpuscular Volume 79.6 fL (81-99); Mean Platelet Vol. 8.7 fl (6.2-12.0); Monocyte# 0.33 X10^3/uL; NRBC Flagged by Analyzer 0 % (0-5); Neutrophil # 5.07 X10^3/uL (2.7-7.7); Neutrophil % 76.5 % (47-70); Platelet Count 252 K/mm3 (150-450); RBC Distribution Width SD 48.3 fl (35.1-43.9); Red Blood Count 4.65 M/mm3 (4.2-5.4); White Blood Count 6.6 K/mm3 (4.4-11.0)
[2019-05-19 17:52] LABS: Prothrombin Time (Protime)PT. 12.8 SECONDS (11.7-14.9)
[2019-05-19 17:53] LABS: Partial Thromboplast Time 26.4 Seconds (24.1-36.2)
--- NOTE | 2019-05-19 18:03 | CM.ED ---
Social Work Consult: EC Care Plan Informant: KARLA Grewal Chart review completed. Patient with 26 visits to the ED since 08/29/18. Chief Complaint: Abdominal Pain Marital/Social History: to [place] [employer]. Has a 12 and 14 year old child. Patient currently stating to be from [place] and that patient is doing shared parenting with [employer]. Living Situation: Lives with [place] and is sometimes at patient parents. Patient's parents live in [place] per patient. Mental Health Treatment/History: Patient stating to be diagnosed with Borderline Personality Disorder and PTSD. PTSD from childhood trauma. Patient stating to have a history of being treated by a psychiatric but no active psychiatric due to not having insurance at this time. Patient denies any active counseling services. Patient stating that medication, Lamictal and Effexor works well to manage patient mental health. Support/Resources: Patient stating to have limited support but does have support from patient mother. Abuse Issues: Patient stating to have a trauma in my childhood. Patient did not elaborate further. Substance Abuse: Patient stating to have a history of being an every day drinker but that patient has not had a drink for two days and before that it was four months. Patient denies any other substance abuse/use. Patient stating to have gotten help with substance abuse in the past and that this was helpful. 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 Assessment: Met with patient in room. Introduced self as well as social media assistant role. Patient agreeable to meet with this social media assistant. This social media assistant noting that patient has had 26 visits to the ED in 2019 thus far. Patient stating I never know when I will have this pain. Patient stating to not currently have a PCP due to not having insurance. Patient stating to had [employer] insurance but in December 2018 that patient started making too much money. Patient stating to have not had open enrollment with patient employer until this past month. Patient stating to hope to have insurance in a couple weeks. Patient stating plan to see a specialist to have gallbladder removed in a couple weeks. Patient stating to have needed transportation. Patient stating to come to [place] [facility] due to patient mother living in [place] as patient is confirming to live in [place], [place]. Patient stating to have plans to moving to [place] soon. Patient first stating we will move to [place] but later this social media assistant clarified that patient is planning to move and get my own place due to patient being from spouse. Patient agreeable to this social media assistant providing patient with community resources. Patient wanting resources for [place] as patient is planning to move to [place]. Patient stating plan to keep job in [place] as it is a good job. Patient stating reason for moving to [place] is to be closer to patient parents. Active listening and support provided. Provided patient with information on substance abuse and mental health resources as well as list of doctors in the area. Patient thanking this social media assistant. Patient presenting with a positive and engaged affect during conversation. Will review patient chart further and submit proposal for ED Care Plan to the Multidisciplinary team. Naomi TAPIA, NEELA
[2019-05-19 18:07] LABS: ALB/GLOB Ratio 1.6 RATIO (0.9-2.4); AST(SGOT) 15 U/L (15-37); Alanine Aminotransfer ALT/SGPT 16 U/L (13-56); Albumin, Serum 4.7 g/dL (3.2-5.0); Alkaline Phosphatase 78 U/L (45-117); Anion Gap 6 (5-15); BUN 7 mg/dL (7-18); BUN/Creat Ratio 8.7 RATIO (10-20); Chloride 105 mmol/L (98-107); EST Glomerular Filtration Rate 84 mL/min (>60); Est Glom Filt Rate - Afr Amer 102 mL/min (>60); Estimated Creatinine Clearance 81.61 ml/min; Globulin 2.9 g/dL (2.2-4.2); Glucose 82 mg/dL (74-106); Lipase 218 U/L (73-393); Potassium 3.6 mmol/L (3.5-5.1); Protein, Total 7.6 g/dL (6.4-8.2); Sodium Level 140 mmol/L (136-145)
[2019-05-19 18:29] LABS: Internal QC Validated? YES +Cl - CLEAR BKGD; Pregnancy, Serum, hCG Quali. NEGATIVE Negative
--- NOTE | 2019-05-19 18:50 | ED.DCSUM_ITS ---
- ER Visit Summary Date of Service: 05/19/19 Chief Complaint: Abdominal pain History of Present Illness: The patient is a 39 F with right upper quadrant abdominal pain. This has been an ongoing issue for her. Her symptoms were worse today. Associate with nausea. She is planning to follow-up with Dr. Blackmon for evaluation. She has a history of gallbladder sludge as well as pancreatitis. She had a CT of her abdomen less than a month ago and it was unremarkable. Physical Examination: Afebrile and vital signs unremarkable. Alert and oriented. No acute distress. Mild right upper quadrant tenderness. No guarding or rebound. Mild right-sided CVA tenderness. Otherwise exam unr emarkable. Test Results: CBC, CMP, lipase, hCG unremarkable. Emergency Department Course and Treatment: Patient was treated with fluids, morphine, Zofran while awaiting results. Labs were unremarkable. There is no indication to test her urine. She is not having symptoms. There is no indication to repeat her imaging or to order additional imaging. I believe the patient is appropriate for outpatient follow-up as she should follow-up with surgery as planned. Treatment Plan: As above Disposition: Discharge Impression: 1. Upper abdominal pain This note was generated with [employer] 5th [employer] dictation software. It may contain incorrect words, spelling, and punctuation that were not noted in review of the chart prior to signing ED Disposition - Plan for ED Patient: Referrals: Vanessa Abernathy DO [Primary Care Provider] -
--- NOTE | 2019-05-19 18:52 | ED.DEP ---
ED Disposition - Plan for ED Patient: Instructions: ABDOMINAL PAIN, Unknown Cause, (Female) Referrals: Vanessa Abernathy DO [Primary Care Provider] -
[2019-05-19 19:02] VITALS: BP 126/71; PULSE 74; RESP 18; O2SAT 99
== END 2019-05-19 19:05 | disposition home or self-care (01) ==
LOC: ED 18:01
PROVIDERS: Emergency Provider Emergency Medicine
DX: R10.11 Right upper quadrant pain (principal); Z79.899 Other long term (current) drug therapy; Z72.0 Tobacco use; Z87.19 Personal history of other diseases of the digestive system
CPT/HCPCS: 80053; 83690; 84703; 85025; 85610; 85730; 96361; 96374; 96375; 96376; 99284; J7030; A4216; J2405

== ENCOUNTER 2019-05-25 22:02 | Emergency (ER) | payer MEDICAID, SELFPAY ==
[2019-05-25 22:02] VITALS: BP 114/76; PULSE 95; RESP 16; TEMP 36.8; O2SAT 100; BMI 18.0
--- NOTE | 2019-05-25 22:35 | ED.VISSUMM ---
- ER Visit Summary Date of Service: 05/25/19 Chief Complaint: [Rash] History of Present Illness: The patient is a 39 F [resents to the emergency department with a painful rash to the left posterior shoulder. Patient states she started with some burning to her skin yesterday. Rash is quite uncomfortable now. Patient has had history of shingles in the past. She denies any fevers or recent illness. Patient has been under more stress of late.] Physical Examination: [HEENT-PERRLA, EOMI. Cranial nerves II through XII grossly intact. TMs clear. Mucous membranes moist. No adenopathy. Cardiovascular-regular rate and rhythm without murmur or ectopy Lungs-clear to auscultation, chest wall stable without crepitus or subcu emphysema Abdomen-normoactive bowel sounds, soft, nontender, no rebound or rigidity, no peritoneal signs. Exam-patient has an erythematous somewhat vesicular rash to the posterior left shoulder that does not cross the midline. Rash is typical of shingles. Extremities-intact ?4, normal range of motion, normal pulses, atraumatic] Test Results: [None indicated] Emergency Department Course and Treatment: [Patient will be started on Famvir and given a prescription for H[place]go for pain.] Treatment Plan: [Patient will be treated with Famvir and Hidalgo.] Disposition: [Discharged home in stable condition.] Impression: [Herpes zoster to left shoulder] This note was generated with [employer] dictation software. It may contain incorrect words, spelling, and punctuation that were not noted in review of the chart prior to signing ED Disposition - Plan for ED Patient: Referrals: Vanessa Abernathy DO [Primary Care Provider] -
--- NOTE | 2019-05-25 22:37 | ED.DEP ---
ED Disposition - Plan for ED Patient: Instructions: Herpes Zoster Prescriptions: Famciclovir [Famvir] 500 mg PO TID #21 tab Prescription Printed Hydrocodone Bitart/Apap 5-325 [[place] 5MG-325MG] 1 tab PO Q4H PRN PRN 2 Days #20 tab PRN Reason: Pain Prescription Printed Referrals: Vanessa Abernathy DO [Primary Care Provider] - 5-7 Days
[2019-05-25 23:02] VITALS: BP 132/97; PULSE 87; RESP 19
== END 2019-05-25 23:05 | disposition home or self-care (01) ==
LOC: ED 22:50
PROVIDERS: Emergency Provider Emergency Medicine
DX: B02.9 Zoster without complications (principal); Z72.0 Tobacco use; Z79.899 Other long term (current) drug therapy; Z87.19 Personal history of other diseases of the digestive system
CPT/HCPCS: 99282

== ENCOUNTER 2019-06-04 15:34 | Emergency (ER) | payer MEDICAID, SELFPAY ==
[2019-06-04 15:35] VITALS: BP 140/86; PULSE 99; RESP 16; TEMP 36.4; O2SAT 98; BMI 17.9
[2019-06-04] MEDS: 0.9% Normal Saline 1,000 ML 1000 ML IV (16:22)
[2019-06-04] MEDS: Ondansetron 4 MG/2 ML Vial IV ×2 (16:22→18:26)
[2019-06-04] MEDS: HYDROmorphone 1 MG/ML Syringe IV ×2 (16:22→18:26)
[2019-06-04 16:31] LABS: Absolute Lymphocyte Count 1.47 X10^3/uL (0.83-4.51); Absolute Neutrophil Count 4.5 X10^3/uL (2.0-7.7); Basophil# 0.05 X10^3/uL; Basophil% 0.8 % (0-1); Eosinophil# 0.05 X10^3/uL; Eosinophils% 0.8 % (0-5); Hematocrit 37.3 % (37-47); Hemoglobin 11.6 g/dL (12.0-15.0); Lymphocyte # 1.47 X10^3/ul (4.0); Lymphocyte % 23.1 % (19-41); Mean Corp Hgb Conc 31.1 g/dL (32-36); Mean Corpuscular Hgb 24.2 pg (27.0-32.0); Mean Corpuscular Volume 77.7 fL (81-99); Mean Platelet Vol. 8.7 fl (6.2-12.0); Monocyte# 0.32 X10^3/uL; NRBC Flagged by Analyzer 0 % (0-5); Neutrophil # 4.46 X10^3/uL (2.7-7.7); Platelet Count 253 K/mm3 (150-450); RBC Distribution Width CV 17.5 % (11.6-14.6); RBC Distribution Width SD 49.5 fl (35.1-43.9); White Blood Count 6.4 K/mm3 (4.4-11.0)
[2019-06-04 16:51] LABS: ALB/GLOB Ratio 1.4 RATIO (0.9-2.4); AST(SGOT) 27 U/L (15-37); Alanine Aminotransfer ALT/SGPT 33 U/L (13-56); Albumin, Serum 4.6 g/dL (3.2-5.0); Alkaline Phosphatase 79 U/L (45-117); Anion Gap 6 (5-15); BUN 10 mg/dL (7-18); BUN/Creat Ratio 11.1 RATIO (10-20); Calcium,Total 9.2 mg/dL (8.5-10.1); Chloride 105 mmol/L (98-107); EST Glomerular Filtration Rate 74 mL/min (>60); Est Glom Filt Rate - Afr Amer 89 mL/min (>60); Estimated Creatinine Clearance 70.18 ml/min; Globulin 3.4 g/dL (2.2-4.2); Glucose 90 mg/dL (74-106); Lipase 101 U/L (73-393); Potassium 3.9 mmol/L (3.5-5.1); Sodium Level 138 mmol/L (136-145)
[2019-06-04 16:58] LABS: Lactic Acid 1.6 mmol/L (0.4-2.0)
[2019-06-04 17:34] VITALS: RESP 12
[2019-06-04 17:38] LABS: Mucous, Urine 0 SEEN /hpf (<or=2+)
[2019-06-04 17:40] LABS: Color, Urine Yellow (Yellow); Glucose, Dipstick Normal (Normal); Ketone-Dipstick Negative (Negative); Leukocyte Esterase-Dipstick Negative /ul (Negative); Nitrite-Dipstick Negative (Negative); Occult Blood-Urine Negative /ul (Negative); Protein-Dipstick Negative (Negative); Urine Bilirubin Dipstick Negative (Negative); Urine Clarity Sl. Cloudy (Clear); Urine Urobilinogen Normal (Normal)
[2019-06-04 17:51] LABS: Bacteria 2+ /hpf (None Seen); Red Blood Cells-Urine 0-5 SEEN /hpf (0-5); Squamous Epithelial Cells - UA 5-10 SEEN /hpf (5-10); White Blood Cells 0-5 SEEN /hpf (0-5)
--- NOTE | 2019-06-04 18:22 | ED.DCSUM_ITS ---
- ER Visit Summary Date of Service: 06/04/19 Chief Complaint: [Abdominal pain] History of Present Illness: The patient is a 39 F [presents to the emergency department with complaint of abdominal pain that started around 1 AM. Patient the pain is epigastric into the right upper quadrant and through to her back. Planes of nausea and vomiting associated with it. Patient does have history of chronic pancreatitis and the pain seems similar to that. Patient states that her last alcoholic beverage was 3 nights ago when she had previous. Patient tells me she think she had a low-grade temp up to 100.7 at home. Also had some loose stools. Patient denies recent antibiotic usage. She denies urinary symp toms. Patient has had prior hysterectomy.] Physical Examination: [HEENT-PERRLA, EOMI. Cranial nerves II through XII grossly intact. TMs clear. Mucous membranes moist. No adenopathy. Cardiovascular-regular rate and rhythm without murmur or ectopy Lungs-clear to auscultation, chest wall stable without crepitus or subcu emphysema Abdomen-normoactive bowel sounds, soft. Patient has tenderness palpation in the epigastric region with some guarding. There is no rebound, rigidity, signs. Extremities-intact ?4, normal range of motion, normal pulses, atraumatic] Test Results: [CBC with differential obtained was normal. Chemistries normal. LFTs normal. Lipase was normal at 101. Urinalysis was normal.] Emergency Department Course and Treatment: [He was medicated with Dilaudid and Zofran. She was given a liter normal same fluid bolus. Patient had good pain relief however the pain started come back and was remedicated with another milligram of Dilaudid and 4 mg of Zofran. Show decision-making about imaging-I discussed with patient potentially obtaining a CT scan of her abdomen as I was unclear the etiology of her pain. Patient had a normal CAT scan of the abdomen pelvis 1 month ago and she is had frequent imaging in the past. At this point she is comfortable without any imaging. She understands that with chronic pancreatitis she may have no elevation in her lipase. She is comfortable with going home with some pain meds and antinausea medication and sticking to a clear liquid diet for the next day or 2 followed by a brat diet. Comfortable with returning if symptoms worsen.] Treatment Plan: [Follow-up with primary care physician within 3 to 5 days] Disposition: [Discharged home in stable condition. Patient advised to return if worsening pain, fever, vomiting, or conditions worsen anyway.] Impression: [Abdominal pain-etiology uncertain] This note was generated with [employer] dictation software. It may contain incorrect words, spelling, and punctuation that were not noted in review of the chart prior to signing ED Disposition - Plan for ED Patient: Referrals: Vanessa Abernathy DO [Primary Care Provider] -
--- NOTE | 2019-06-04 18:26 | DCINST.ED_ITS ---
ED Disposition - Plan for ED Patient: Instructions: ABDOMINAL PAIN, Unknown Cause, (Female) Prescriptions: Hydrocodone Bitart/Apap 5-325 [[place] 5MG-325MG] 1 tab PO Q4H PRN PRN 2 Days #10 tab PRN Reason: Pain Prescription Printed Ondansetron [Zofran Odt] 4 mg PO Q8H PRN PRN #10 tab PRN Reason: Nausea Prescription Printed Referrals: Vanessa Abernathy DO [Primary Care Provider] - 3-5 Days
[2019-06-04 18:39] VITALS: BP 121/81; PULSE 69; RESP 12; O2SAT 97
== END 2019-06-04 18:40 | disposition home or self-care (01) ==
PROVIDERS: Emergency Provider Emergency Medicine
DX: R10.9 Unspecified abdominal pain (principal); R11.2 Nausea with vomiting, unspecified; R19.7 Diarrhea, unspecified; Z72.0 Tobacco use; Z79.899 Other long term (current) drug therapy; Z87.19 Personal history of other diseases of the digestive system; Z90.710 Acquired absence of both cervix and uterus
CPT/HCPCS: 80053; 81001; 83605; 83690; 85025; 96361; 96374; 96375; 96376; 99284; J7030; A4216; J2405

== ENCOUNTER 2019-06-08 21:31 | Emergency (ER) | payer SELFPAY ==
[2019-06-08 21:32] VITALS: BP 123/86; PULSE 109; RESP 15; TEMP 36.7; O2SAT 98; BMI 18.6
--- NOTE | 2019-06-08 21:48 | ED.DCSUM_ITS ---
History of Present Illness Chief Complaint: Flank Pain Detail of Chief Complaint: Nausea and pain radiating anteriorly Informant: Patient Onset: Days Context: Sudden Onset Timing: Continuous Quality: Pain Location: Right flank radiating anteriorly Current Severity: Moderate Maximum Severity: Severe Worsened by: Movement Relieved by: Nothing Associated Symptoms: Nausea only Narrative: Patient is a 39-year-old woman with history of pancreatitis, renal/ureteral lithiasis who was seen on June [address] Gonzalez. Work-up at that time was unremarkable. Since she had a CT of the abdomen pelvis in April CT was not r epeated. She is had numerous CAT scans. She does have history of endometriosis and is status post hysterectomy. She denies constipation. She is fluctuating. She denies dysuria, frequency, urgency or hematuria. She states her appendix is still in. CAT scan was obtained on May 04. CAT scan revealed no abnormality including no evidence of renal lithiasis. Prior similar symptoms: Yes Recent Illness/Hospitalization: Yes - Past Medical History (1) Alcoholic pancreatitis Status: Chronic (2) Alcoholism Status: Chronic (3) Depression Status: Chronic Past Medical History - Allergies and Home Meds Allergies/Adverse Reactions: Allergies ketorolac [From Toradol] Allergy (Verified 06/08/19 21:35) Itching valacyclovir Allergy (Verified 06/08/19 21:35) Itching Primary Care Physician: Vanessa Abernathy DO [Primary Care Provider] - Prior records reviewed: Yes Surgical History: - - Abdominal laparoscopy Lives: Alone Smoking Status: Current every day smoker Alcohol: Occasional Drugs: None Review of Systems General: Denies: Chills, Fever, Malaise, Sweats ENT: Denies: Rhinorrhea, Sore throat Cardiovascular: Denies: Chest pain, Palpitations Respiratory: Denies: Dyspnea, Cough, Dyspnea on exertion Gastrointestinal: Reports: Abdominal pain, Nausea. Denies: Vomiting, Diarrhea, Constipation, Melena, Hematochezia, -, - Musculoskeletal: Reports: Back pain - Flank pain. Denies: Myalgias, Arthralgias, Neck pain, Swelling, Extremity Pain Skin: Denies: Rash, Wounds Neurological: Denies: Headache, Weakness, Parasthesia Psych: Reports: Depression - Her old records Physical Exam Vital Signs/Narrative: Vital Signs Temp Pulse Resp BP Pulse Ox 06/08/19 21:32 98.1 F 109 H 15 123/86 H 98 Inital Vital Signs reviewed: Yes General: Well nourished, Well developed, - - Appears uncomfortable and moves slowly Abdomen: Soft, Nondistended, No masses, Tender, Guarding, Hyperactive bowel sounds, - - Is well-healed scars port laparoscopic port sites noted.. Negative for: Nontender, Normal bowel sounds, Rebound tenderness, Hepatomegaly, Splenomegaly, Pulsatile mass, Ventral hernia, Inguinal hernia, Umbilical hernia Back: Nontender, Normal Inspection, CVA tenderness. Negative for: Spinal tenderness Extremities: Nontender, No edema Skin: Normal color, No rash, No Trauma. Negative for: Cyanosis, Diaphoresis, Jaundice Neurological: Alert, Oriented x3, Cranial nerves II-XII grossly intact, Normal Strength, Normal Sensation Psychological: Normal affect, Normal Mood Diagnostic/Tx/Re-eval Laboratory Results 06/08/19 06/08/19 06/08/19 22:10 22:10 22:43 WBC 9.0 RBC 4.47 Hgb 10.9 L Hct 34.3 L MCV 76.7 L MCH 24.4 L MCHC 31.8 L RDW Std Deviation 49.4 H RDW Coeff of Asim 18.0 H Plt Count 269 MPV 9.5 Immature Gran % (Auto) 0.200 Neut % (Auto) 70.6 H Lymph % (Auto) 22.3 [place] % (Auto) 5.5 Eos % (Auto) 0.7 Baso % (Auto) 0.7 Absolute Neuts (auto) 6.3 Absolute Lymphs (auto) 2.00 Nucleated RBC % 0 Sodium 137 Potassium 3.9 Chloride 107 Carbon Dioxide 21.0 Anion Gap 9 BUN 7 Creatinine 0.86 Estim Creat Clear Calc 76.05 Est GFR (MDRD) Af Amer 94 Est GFR (MDRD) Non-Af 78 BUN/Creatinine Ratio 8.2 L Glucose 97 Calcium 9.1 Urine Color Yellow Urine Clarity Sl. Cloudy Urine pH 6.0 Ur Specific [place] 1.005 Urine Protein Negative Urine Glucose (UA) Normal Urine Ketones 5 H Urine Occult Blood 250 H Urine Nitrite Negative Urine Bilirubin Negative Urine Urobilinogen Normal Ur Leukocyte Esterase Negative Urine RBC 25-50 SEEN Urine WBC 0 SEEN Ur Squamous Epith Cells 0 SEEN Urine Bacteria 0 SEEN Urine Mucus 0 SEEN White count is unremarkable. Basic metabolic panel is unremarkable. Urine is remarkable for microscopic hematuria. There is no evidence of infection. Since she had a CAT scan of the abdomen pelvis on May 04 but that did not reveal any renal or ureterolithiasis and her primary complaint is flank pain that radiates anteriorly she was informed the cause of her pain is unknown. She was informed her work-up was unremarkable other than hematuria. She was informed that 10 to 15% of population has blood in the urine with no known cause. - Medical Decision Making IV was established. Because of her allergies she was treated with 4 mg of Zofran 4 mg of morphine. Blood work was obtained. With a CT of the abdomen pelvis that was performed 5 weeks ago no evidence of renal lithiasis doubt the cause of her flank pain is obstructing stone. Will obtain urine to assess for infection. Baseline blood work was obtained. Patient will not receive anything other than NSAIDs at this time. Of note she lives in [facility] and works in [facility] [facility]. She was informed to follow- up with her physician. ED Disposition - Plan for ED Patient: Disposition: Home or Assisted Living Diagnosis: Flank pain, Hematuria, microscopic Instructions: FLANK PAIN, Uncertain Cause Referrals: Vanessa Abernathy DO [Primary Care Provider] - 1-2 Days if not improving
[2019-06-08 21:49] VITALS: TEMP 37.1
[2019-06-08] MEDS: Morphine 4 MG/ML Syringe IV (22:01)
[2019-06-08] MEDS: Ondansetron 4 MG/2 ML Vial IV (22:01)
[2019-06-08] MEDS: 0.9% Normal Saline 1,000 ML 250 ML IV (22:05)
[2019-06-08 22:19] LABS: Absolute Neutrophil Count 6.3 X10^3/uL (2.0-7.7); Basophil# 0.06 X10^3/uL; Basophil% 0.7 % (0-1); Eosinophil# 0.06 X10^3/uL; Eosinophils% 0.7 % (0-5); Hematocrit 34.3 % (37-47); Hemoglobin 10.9 g/dL (12.0-15.0); Lymphocyte % 22.3 % (19-41); Mean Corp Hgb Conc 31.8 g/dL (32-36); Mean Corpuscular Hgb 24.4 pg (27.0-32.0); Mean Corpuscular Volume 76.7 fL (81-99); Mean Platelet Vol. 9.5 fl (6.2-12.0); Monocyte# 0.49 X10^3/uL; Monocyte% 5.5 % (0-10); NRBC Flagged by Analyzer 0 % (0-5); Neutrophil # 6.33 X10^3/uL (2.7-7.7); Neutrophil % 70.6 % (47-70); Platelet Count 269 K/mm3 (150-450); RBC Distribution Width SD 49.4 fl (35.1-43.9); Red Blood Count 4.47 M/mm3 (4.2-5.4)
[2019-06-08 22:48] LABS: Anion Gap 9 (5-15); BUN 7 mg/dL (7-18); BUN/Creat Ratio 8.2 RATIO (10-20); Calcium,Total 9.1 mg/dL (8.5-10.1); Chloride 107 mmol/L (98-107); Creatinine, Serum 0.86 mg/dL (0.55-1.02); EST Glomerular Filtration Rate 78 mL/min (>60); Est Glom Filt Rate - Afr Amer 94 mL/min (>60); Estimated Creatinine Clearance 76.05 ml/min; Glucose 97 mg/dL (74-106); Potassium 3.9 mmol/L (3.5-5.1); Sodium Level 137 mmol/L (136-145)
[2019-06-08 22:51] LABS: Bacteria 0 SEEN /hpf (None Seen); Mucous, Urine 0 SEEN /hpf (<or=2+); Squamous Epithelial Cells - UA 0 SEEN /hpf (5-10); White Blood Cells 0 SEEN /hpf (0-5)
[2019-06-08 22:53] LABS: Color, Urine Yellow (Yellow); Glucose, Dipstick Normal (Normal); Ketone-Dipstick 5 mg/dl (Negative); Leukocyte Esterase-Dipstick Negative /ul (Negative); Nitrite-Dipstick Negative (Negative); Occult Blood-Urine 250 /ul (Negative); Protein-Dipstick Negative (Negative); Specific Gravity, Urine 1.005 (1.002-1.030); Urine Bilirubin Dipstick Negative (Negative); Urine Clarity Sl. Cloudy (Clear); Urine Urobilinogen Normal (Normal)
[2019-06-08 22:58] LABS: Red Blood Cells-Urine 25-50 SEEN /hpf (0-5)
[2019-06-08 23:19] VITALS: BP 122/81; PULSE 88; O2SAT 99
== END 2019-06-08 23:22 | disposition home or self-care (01) ==
PROVIDERS: Emergency Provider Emergency Medicine
DX: R10.9 Unspecified abdominal pain (principal); R31.29 Other microscopic hematuria; R11.0 Nausea; K86.0 Alcohol-induced chronic pancreatitis; F32.9 Major depressive disorder, single episode, unspecified; F17.200 Nicotine dependence, unspecified, uncomplicated; Z79.899 Other long term (current) drug therapy; Z87.442 Personal history of urinary calculi; Z90.710 Acquired absence of both cervix and uterus
CPT/HCPCS: 80048; 81001; 85025; 96361; 96374; 96375; 99285; J7030; A4216; J2405

== ENCOUNTER 2019-06-13 11:51 | Emergency (ER) | payer SELFPAY ==
[2019-06-13 11:51] VITALS: BP 161/90; PULSE 88; RESP 16; TEMP 36.6; O2SAT 100; BMI 17.8
--- NOTE | 2019-06-13 12:06 | ED.DCSUM_ITS ---
- ER Visit Summary Date of Service: 06/13/19 Chief Complaint: Epigastric abdominal pain History of Present Illness: The patient is a 39 F history of pancreatitis from alcohol abuse. History of PTSD and endometriosis and multiple prior abdominal surgeries. Still has her gallbladder. States that she drank several beers 2 days ago. As she developed abdominal pain with nausea and vomiting last night. No hematemesis. No fever. Physical Examination: White female vital signs are stable. She is afebrile. Pulse ox on percent room air no hypoxia. H EENT exam unremarkable. Neck nontender. Lungs clear to auscultation bilaterally. Heart regular rhythm no murmur. Abdomen soft. Nondistended. Normal bowel sounds. Tender in the epigastric region. Open fracture no rebound. No signs of obstruction. Patient moving all 4 extremities. Neurovascular intact. Nontender no edema. Back nontender. Neurologically she is awake alert with no focal motor deficits. Test Results: CBC white count of 5. Hemoglobin 11.2 which is her baseline chronic anemia. Electrolytes unremarkable normal BUN, creatinine and gap. Liver enzymes normal. Lipase normal at 122. Amylase normal at 54. Patient's had multiple CAT scans at least for abdominal CAT scans this year done at [facility] and all of which were basically negative. No signs of acute pancreatitis or other acute pathology. Emergency Department Course and Treatment: History of pancreatitis with epigastric abdominal pain. Treated with IV morphine, Zofran and fluids. Labs are pending. Patient is doing well on repeat exam. She requested additional pain meds multiple times. In light that she has no clinical signs of pancreatitis via the labs. I do not think she needs further pain meds. She will be discharged home. Treatment Plan: On Protonix for possible alcoholic gastritis. Follow-up with her primary care physician. Disposition: Discharge Impression: Acute abdominal pain of uncertain etiology History of pancreatitis Hx alcohol abuse This note was generated with [employer] dictation software. It may contain incorrect words, spelling, and punctuation that were not noted in review of the chart prior to signing ED Disposition - Plan for ED Patient: Referrals: Vanessa Abernathy DO [Primary Care Provider] -
[2019-06-13] MEDS: morphine 8 MG/ML Syringe IV (12:29)
[2019-06-13] MEDS: Ondansetron 4 MG/2 ML Vial IV ×2 (12:30→13:21)
[2019-06-13] MEDS: 0.9% Normal Saline 1,000 ML 1000 ML IV (12:30)
[2019-06-13 12:40] LABS: Absolute Lymphocyte Count 1.24 X10^3/uL (0.83-4.51); Absolute Neutrophil Count 3.9 X10^3/uL (2.0-7.7); Basophil# 0.05 X10^3/uL; Basophil% 0.9 % (0-1); Eosinophil# 0.07 X10^3/uL; Eosinophils% 1.3 % (0-5); Hematocrit 36.2 % (37-47); Hemoglobin 11.2 g/dL (12.0-15.0); Lymphocyte # 1.24 X10^3/ul (4.0); Lymphocyte % 22.3 % (19-41); Mean Corp Hgb Conc 30.9 g/dL (32-36); Mean Corpuscular Hgb 24.5 pg (27.0-32.0); Mean Corpuscular Volume 79.2 fL (81-99); Mean Platelet Vol. 8.7 fl (6.2-12.0); Monocyte# 0.28 X10^3/uL; NRBC Flagged by Analyzer 0 % (0-5); Neutrophil # 3.89 X10^3/uL (2.7-7.7); Neutrophil % 70.1 % (47-70); Platelet Count 287 K/mm3 (150-450); RBC Distribution Width CV 18.5 % (11.6-14.6); RBC Distribution Width SD 52.6 fl (35.1-43.9); Red Blood Count 4.57 M/mm3 (4.2-5.4); White Blood Count 5.6 K/mm3 (4.4-11.0)
[2019-06-13 13:03] LABS: AST(SGOT) 34 U/L (15-37); Alanine Aminotransfer ALT/SGPT 21 U/L (13-56); Albumin, Serum 4.1 g/dL (3.2-5.0); Alkaline Phosphatase 71 U/L (45-117); Amylase 54 U/L (25-115); Anion Gap 2 (5-15); BUN 12 mg/dL (7-18); BUN/Creat Ratio 14.5 RATIO (10-20); Bilirubin, Direct < 0.05 mg/dL (0.00-0.30); Calcium,Total 8.8 mg/dL (8.5-10.1); Chloride 109 mmol/L (98-107); Creatinine, Serum 0.83 mg/dL (0.55-1.02); EST Glomerular Filtration Rate 81 mL/min (>60); Est Glom Filt Rate - Afr Amer 98 mL/min (>60); Estimated Creatinine Clearance 75.48 ml/min; Globulin 3.4 g/dL (2.2-4.2); Glucose 98 mg/dL (74-106); Lipase 122 U/L (73-393); Potassium 5.1 mmol/L (3.5-5.1); Protein, Total 7.5 g/dL (6.4-8.2); Sodium Level 140 mmol/L (136-145)
--- NOTE | 2019-06-13 14:52 | ED.DEP ---
ED Disposition - Plan for ED Patient: Disposition: Home or Assisted Living Instructions: ABDOMINAL PAIN, Unknown Cause, (Female) Prescriptions: Pantoprazole Sodium [Protonix] 40 mg PO DAILY 14 Days #14 tab Prescription Printed Referrals: Vanessa Abernathy DO [Primary Care Provider] - As soon as possible Additional Instructions: Follow-up with your doctor. All your tests were basically normal today. This could be secondary to gastritis. I will write you for Protonix.
[2019-06-13 15:03] VITALS: BP 107/66; PULSE 79
== END 2019-06-13 15:04 | disposition home or self-care (01) ==
PROVIDERS: Emergency Provider Emergency Medicine
DX: R10.13 Epigastric pain (principal); F10.10 Alcohol abuse, uncomplicated; Y90.9 Presence of alcohol in blood, level not specified; F43.10 Post-traumatic stress disorder, unspecified; Z72.0 Tobacco use
CPT/HCPCS: 80048; 80076; 82150; 83690; 85025; 96361; 96374; 96375; 96376; 99283; A4216; J2405

== ENCOUNTER 2019-06-18 22:51 | Emergency (ER) | payer SELFPAY ==
[2019-06-18 22:52] VITALS: BP 152/96; PULSE 86; RESP 18; TEMP 36.7; O2SAT 99; BMI 17.8
--- NOTE | 2019-06-18 23:31 | ED.DCSUM_ITS ---
- ER Visit Summary Date of Service: 06/18/19 Chief Complaint: Gastric abdominal pain History of Present Illness: The patient is a 39 F. Reported history of pancreatitis, borderline personality disorder and PTSD. Does have history patient had a prior hysterectomy. States has had epigastric abdominal pain started [employer] this morning. States she saw her primary care physician who said she states did labs her lipase was 500. Patient states she is also had a fever of 101. Denies any dysuria. She has had nausea and vomiting. Of note I recently took care of this patient 5 days ago. She has had multiple CAT scans done in the last 2 years none of which showing any signs of pancreatitis. The labs I did the other day were basically unremarkable other than chronic anemia and at that time she had a lipase of 122. Patient will be given IV fluids and nausea medications I will hold pain medications until the labs return. Physical Examination: Middle-aged female. Vital signs are stable and afebrile. She does not look septic or toxic. She does not look dehydrated. H EENT exam unremarkable. Moist with membranes. Neck nontender no lymphadenopathy. Lungs clear to auscultation bilaterally. Heart regular rhythm no murmur rate about 85. Abdomen is soft. She has epigastric tenderness. It seems to be excessive or out of proportion to exam. She is nondistended. No hernias or masses. No signs of obstruction. Right upper and right lower quadrants are unremarkable. She has normal bowel sounds. Neuro exam is normal she is moving all 4 extremities. Calves are nontender without edema or cords. Test Results: CBC White count 8. Hemoglobin 11 her baseline chronic anemia. Chemistries normal normal creatinine gap. Liver enzymes normal. Lipase is elevated at 1,209. Consistent with early pancreatitis. Emergency Department Course and Treatment: IV fluids due to nausea vomiting and IV Zofran. Patient was also treated with IV Dilaudid. Repeat exam she is doing well. She denied discussed treatment options. Currently she is uninsured and had financial concerns of being admitted and she want to be treated at home. She has had this multiple times before and knows how to treat herself at home. To be written for Percocet for pain. Zofran for nausea. She will be given a dose of Dilaudid and Zofran prior to being discharged. Treatment Plan: Percocet for pain. 20 no refill. Zofran for nausea 20 no refill. Fluids and increase diet slowly as tolerated. Return if feeling worse. Disposition: Discharge Impression: Abdominal pain secondary to acute on chronic pancreatitis This note was generated with [employer] dictation software. It may contain incorrect words, spelling, and punctuation that were not noted in review of the chart prior to signing ED Disposition - Plan for ED Patient: Referrals: Vanessa Abernathy DO [Primary Care Provider] -
[2019-06-18 23:48] LABS: Absolute Lymphocyte Count 3.13 X10^3/uL (0.83-4.51); Absolute Neutrophil Count 4.4 X10^3/uL (2.0-7.7); Basophil# 0.06 X10^3/uL; Basophil% 0.7 % (0-1); Eosinophil# 0.27 X10^3/uL; Eosinophils% 3.2 % (0-5); Hematocrit 35.8 % (37-47); Hemoglobin 11.3 g/dL (12.0-15.0); Lymphocyte # 3.13 X10^3/ul (4.0); Lymphocyte % 37.5 % (19-41); Mean Corp Hgb Conc 31.6 g/dL (32-36); Mean Corpuscular Hgb 24.6 pg (27.0-32.0); Mean Corpuscular Volume 77.8 fL (81-99); Mean Platelet Vol. 8.7 fl (6.2-12.0); Monocyte# 0.43 X10^3/uL; Monocyte% 5.2 % (0-10); NRBC Flagged by Analyzer 0 % (0-5); Neutrophil # 4.43 X10^3/uL (2.7-7.7); Neutrophil % 53.2 % (47-70); Platelet Count 293 K/mm3 (150-450); RBC Distribution Width SD 50.8 fl (35.1-43.9); White Blood Count 8.3 K/mm3 (4.4-11.0)
[2019-06-19] MEDS: 0.9% Normal Saline 1,000 ML 999 ML IV (00:05)
[2019-06-19] MEDS: Ondansetron 4 MG/2 ML Vial IV ×2 (00:05→01:55)
[2019-06-19 00:09] LABS: AST(SGOT) 22 U/L (15-37); Alanine Aminotransfer ALT/SGPT 19 U/L (13-56); Albumin, Serum 4.7 g/dL (3.2-5.0); Alkaline Phosphatase 90 U/L (45-117); Anion Gap 6 (5-15); BUN 9 mg/dL (7-18); BUN/Creat Ratio 9.4 RATIO (10-20); Bilirubin, Direct 0.08 mg/dL (0.00-0.30); Calcium,Total 9.3 mg/dL (8.5-10.1); Chloride 102 mmol/L (98-107); Creatinine, Serum 0.96 mg/dL (0.55-1.02); EST Glomerular Filtration Rate 68 mL/min (>60); Est Glom Filt Rate - Afr Amer 83 mL/min (>60); Estimated Creatinine Clearance 65.26 ml/min; Globulin 3.5 g/dL (2.2-4.2); Glucose 62 mg/dL (74-106); Lipase 1209 U/L (73-393); Potassium 3.9 mmol/L (3.5-5.1); Protein, Total 8.2 g/dL (6.4-8.2); Sodium Level 138 mmol/L (136-145)
[2019-06-19] MEDS: HYDROmorphone 1 MG/ML Syringe IV ×2 (00:31→01:56)
[2019-06-19 00:51] VITALS: BP 111/75; PULSE 77; RESP 15; O2SAT 98
[2019-06-19 01:40] VITALS: BP 111/75; PULSE 77; RESP 15; O2SAT 98
--- NOTE | 2019-06-19 01:43 | ED.DEP ---
ED Disposition - Plan for ED Patient: Disposition: Home or Assisted Living Instructions: Pancreatitis Prescriptions: Oxycodone HCl/Acetaminophen [Percocet 5/325] 1 tab PO Q4H PRN PRN 4 Days #20 tab PRN Reason: Pain Prescription Printed Ondansetron [Zofran Odt] 4 mg PO Q8H PRN PRN #20 tab PRN Reason: Nausea Prescription Printed Referrals: Vanessa Abernathy DO [Primary Care Provider] - 3-5 Days Additional Instructions: Plenty of fluids and rest and increase diet slowly as tolerated. Percocet for pain. Zofran as needed for nausea. You have pancreatitis. Hopefully this progressively improve if you are getting worse return to be admitted or follow-up with your primary care physician if not improving.
== END 2019-06-19 02:12 | disposition home or self-care (01) ==
PROVIDERS: Emergency Provider Emergency Medicine
DX: K85.90 Acute pancreatitis without necrosis or infection, unspecified (principal); K86.1 Other chronic pancreatitis; F60.3 Borderline personality disorder; F43.10 Post-traumatic stress disorder, unspecified; Z72.0 Tobacco use
CPT/HCPCS: 80048; 80076; 83690; 85025; 96361; 96374; 96375; 96376; 99284; J7030; A4216; J2405

== ENCOUNTER 2019-06-23 23:28 | Emergency (ER) | payer SELFPAY ==
[2019-06-23 23:30] VITALS: BP 147/100; PULSE 83; RESP 16; TEMP 36.8; O2SAT 98; BMI 17.8
[2019-06-24] MEDS: HYDROmorphone 1 MG/ML Syringe 0.5 MG IV (00:49)
[2019-06-24] MEDS: Ondansetron 4 MG/2 ML Vial IV ×2 (00:49→01:58)
[2019-06-24] MEDS: 0.9% Normal Saline 1,000 ML 1000 ML IV (00:49)
[2019-06-24 01:02] LABS: Absolute Lymphocyte Count 2.65 X10^3/uL (0.83-4.51); Absolute Neutrophil Count 2.7 X10^3/uL (2.0-7.7); Basophil# 0.04 X10^3/uL; Basophil% 0.7 % (0-1); Eosinophil# 0.12 X10^3/uL; Eosinophils% 2.1 % (0-5); Hematocrit 34.3 % (37-47); Hemoglobin 10.7 g/dL (12.0-15.0); Lymphocyte # 2.65 X10^3/ul (4.0); Lymphocyte % 45.8 % (19-41); Mean Corp Hgb Conc 31.2 g/dL (32-36); Mean Corpuscular Hgb 24.5 pg (27.0-32.0); Mean Corpuscular Volume 78.5 fL (81-99); Mean Platelet Vol. 8.6 fl (6.2-12.0); Monocyte% 5.2 % (0-10); NRBC Flagged by Analyzer 0 % (0-5); Neutrophil # 2.66 X10^3/uL (2.7-7.7); Platelet Count 275 K/mm3 (150-450); RBC Distribution Width CV 17.9 % (11.6-14.6); RBC Distribution Width SD 51.3 fl (35.1-43.9); Red Blood Count 4.37 M/mm3 (4.2-5.4); White Blood Count 5.8 K/mm3 (4.4-11.0)
--- NOTE | 2019-06-24 01:28 | ED.DCSUM_ITS ---
History of Present Illness Chief Complaint: Abd Pain Informant: Patient Onset: Days - Recent pancreatitis flare, pain worsened yesterday Current Severity: Moderate Maximum Severity: Moderate Narrative: Patient presents with worsened upper abdominal pain with nausea and vomiting. She is a history of pancreatitis. But declined hospitalization. Patient states she is been trying liquid diet at home. She was unable to find anyone to cover her shift at work so she had to go to work. She states her pain has worsened and she has nausea and vomiting. She states she was seen by her PCP yesterday and her lipase was 400. - Past Medical History (1) Depression Status: Chronic (2) Alcoholism Status: Chronic (3) Alcoholic pancreatitis Status: Chronic Past Medical History - Allergies and Home Meds Allergies/Adverse Reactions: Allergies ketorolac [From Toradol] Allergy (Verified 06/23/19 23:32) Itching valacyclovir Allergy (Verified 06/23/19 23:32) Itching Primary Care Physician: Vanessa Abernathy DO [Primary Care Provider] - Prior records reviewed: Yes Surgical History: - - Abdominal laparoscopy Smoking Status: Current every day smoker Review of Systems General: Reports: Chills, Sweats. Denies: Fever Eyes: Denies: Visual changes - bilaterally ENT: Denies: Bilateral ear pain Cardiovascular: Denies: Chest pain Respiratory: Denies: Dyspnea, Cough Gastrointestinal: Reports: Abdominal pain, Nausea, Vomiting Genitourinary: Denies: Dysuria Skin: Denies: Rash Neurological: Denies: Headache Hematologic: Denies: Easy bruising Allergy: Denies: Uticaria Physical Exam Vital Signs/Narrative: Vital Signs Temp Pulse Resp BP Pulse Ox 06/23/19 23:30 98.2 F 83 16 147/100 H 98 Inital Vital Signs reviewed: Yes General: Well nourished, Well developed Head: Normocephalic ENT: Moist mucous membranes Neck: Supple Cardiovascular: Regular rate, Regular rhythm Respiratory: No distress, CTA bilaterally Abdomen: Soft, Tender - Epigastric tenderness to palpation.. Negative for: Guarding, Rebound tenderness Extremities: Nontender Skin: Normal color Neurological: Alert, Oriented x3 Psychological: Tearful Diagnostic/Tx/Re-eval Laboratory Results 06/24/19 06/24/19 00:49 00:49 WBC 5.8 RBC 4.37 Hgb 10.7 L Hct 34.3 L MCV 78.5 L MCH 24.5 L MCHC 31.2 L RDW Std Deviation 51.3 H RDW Coeff of Asim 17.9 H Plt Count 275 MPV 8.6 Immature Gran % (Auto) 0.200 Neut % (Auto) 46.0 L Lymph % (Auto) 45.8 H [place] % (Auto) 5.2 Eos % (Auto) 2.1 Baso % (Auto) 0.7 Absolute Neuts (auto) 2.7 Absolute Lymphs (auto) 2.65 Nucleated RBC % 0 Sodium 140 Potassium 3.7 Chloride 105 Carbon Dioxide 29.0 Anion Gap 6 BUN 8 Creatinine 0.91 Estim Creat Clear Calc 68.85 Est GFR (MDRD) Af Amer 88 Est GFR (MDRD) Non-Af 73 BUN/Creatinine Ratio 8.8 L Glucose 87 Calcium 9.3 Total Bilirubin 0.10 L Direct Bilirubin 0.07 AST 19 ALT 16 Alkaline Phosphatase 86 Total Protein 7.8 Albumin 4.5 Globulin 3.3 Lipase 117 - Medical Decision Making Patient was given Dilaudid and Zofran here for pain. She is given IV fluids. Test results are discussed with her. I encouraged her to take her Pepcid on a regular basis. She still has Zofran at home. She will be given 10 tabs of Percocet for home. ED Disposition - Plan for ED Patient: Disposition: Home or Assisted Living Diagnosis: Abdominal pain Instructions: GASTRITIS vs. ULCER Prescriptions: Oxycodone HCl/Acetaminophen [Percocet 5/325] 1 tablet PO Q6H PRN PRN 3 Days #10 tablet PRN Reason: Pain Referrals: Vanessa Abernathy DO [Primary Care Provider] - As soon as possible
[2019-06-24 01:30] LABS: AST(SGOT) 19 U/L (15-37); Alanine Aminotransfer ALT/SGPT 16 U/L (13-56); Albumin, Serum 4.5 g/dL (3.2-5.0); Alkaline Phosphatase 86 U/L (45-117); Anion Gap 6 (5-15); BUN 8 mg/dL (7-18); BUN/Creat Ratio 8.8 RATIO (10-20); Bilirubin, Direct 0.07 mg/dL (0.00-0.30); Calcium,Total 9.3 mg/dL (8.5-10.1); Chloride 105 mmol/L (98-107); Creatinine, Serum 0.91 mg/dL (0.55-1.02); EST Glomerular Filtration Rate 73 mL/min (>60); Est Glom Filt Rate - Afr Amer 88 mL/min (>60); Estimated Creatinine Clearance 68.85 ml/min; Globulin 3.3 g/dL (2.2-4.2); Glucose 87 mg/dL (74-106); Lipase 117 U/L (73-393); Potassium 3.7 mmol/L (3.5-5.1); Protein, Total 7.8 g/dL (6.4-8.2); Sodium Level 140 mmol/L (136-145)
[2019-06-24] MEDS: HYDROmorphone 0.5 MG/0.5 ML SYRINGE IV (01:59)
[2019-06-24 02:02] VITALS: BP 135/88; PULSE 77; RESP 14; O2SAT 100
[2019-06-24 02:08] VITALS: BP 133/88; PULSE 71; RESP 16; O2SAT 98
== END 2019-06-24 02:09 | disposition home or self-care (01) ==
PROVIDERS: Emergency Provider Emergency Medicine
DX: R10.13 Epigastric pain (principal); R11.2 Nausea with vomiting, unspecified; K86.0 Alcohol-induced chronic pancreatitis; F10.20 Alcohol dependence, uncomplicated; Y90.9 Presence of alcohol in blood, level not specified; F32.9 Major depressive disorder, single episode, unspecified; F17.200 Nicotine dependence, unspecified, uncomplicated
CPT/HCPCS: 80048; 80076; 83690; 85025; 96361; 96374; 96375; 96376; 99284; J2405

== ENCOUNTER 2019-06-27 14:09 | Emergency (ER) | payer SELFPAY ==
[2019-06-27 14:10] VITALS: BP 127/89; PULSE 110; RESP 18; TEMP 36.6; O2SAT 100; BMI 17.9
--- NOTE | 2019-06-27 14:43 | ED.VISSUMM ---
- ER Visit Summary Date of Service: 06/27/19 Chief Complaint: Rash with itching History of Present Illness: The patient is a 39 F 3 pancreatitis. Patient states she developed a rash yesterday on her back and upper shoulder. No prior history. She is on no new meds, soaps or colognes. She has never had a rash like this before. No trouble breathing or swallowing. No wheezing. Physical Examination: Middle-aged female no acute distress. Vital signs are stable and afebrile. H EENT exam unremarkable. Neck nontender. Lungs clear to auscultation bilaterally. No wheezing. Heart regular rhythm rate about 100 no murmur. Abdomen soft nontender normal bowel sounds no peritoneal signs. Patient is moving all 4 extremities and neurovascular intact. No edema. Back she is a red rash is not raised and blanches consistent with allergic reaction. It is on her right posterior shoulder upper back and lower back. This is not shingles. There is no cellulitis. No petechiae purpura. No vesicles or sloughing of skin. This is consistent with allergic reaction. Neurologic exam normal. Test Results: None Emergency Department Course and Treatment: Treated with 60 mg of prednisone. Treatment Plan: Prednisone 40 g a day till the rash resolves. Benadryl for itching. Follow-up as needed. Disposition: Discharge Impression: Acute skin rash secondary to allergic reaction This note was generated with [employer] dictation software. It may contain incorrect words, spelling, and punctuation that were not noted in review of the chart prior to signing ED Disposition - Plan for ED Patient: Referrals: Vanessa Abernathy DO [Primary Care Provider] -
--- NOTE | 2019-06-27 14:47 | ED.DEP ---
ED Disposition - Plan for ED Patient: Disposition: Home or Assisted Living Instructions: ALLERGIC REACTION, Other (General) Prescriptions: Prednisone [Deltasone] 40 mg PO DAILY 7 Days tab Prescription Printed Referrals: Vanessa Abernathy DO [Primary Care Provider] - As Needed Additional Instructions: Prednisone 40 mg a day till the rash is gone. Then you may stop. Benadryl for itching. Follow-up if not improving.
--- NOTE | 2019-06-27 14:54 | ED.RN ---
pt left prior to getting medications ordered and without her prescription or discharge instruction. called and left a message so she knew they were available and the prescription and discharge instructions would be at the triage desk if she would like to get them. physician is aware that pt left.
--- NOTE | 2019-06-27 14:57 | CM.ED ---
Social Work Consult: Pending ED Care Plan Went to meet with patient in room. Patient left ER without prescription or discharge documentation from nursing staff. Nursing did attempt to contact patient to remind patient that patient has a prescription for prednisone. Will continue to follow for development of ED Care Plan. Naomi TAPIA, NEELA
== END 2019-06-27 14:57 | disposition home or self-care (01) ==
PROVIDERS: Emergency Provider Emergency Medicine
DX: T78.40XA Allergy, unspecified, initial encounter (principal); X58.XXXA Exposure to other specified factors, initial encounter; Z72.0 Tobacco use
CPT/HCPCS: 99282

== ENCOUNTER 2019-07-14 13:54 | Emergency (ER) | payer MEDICAID, SELFPAY ==
[2019-07-14 13:54] VITALS: BP 134/92; PULSE 102; RESP 16; TEMP 36.6; O2SAT 100; BMI 18.2
--- NOTE | 2019-07-14 14:25 | CM.ED ---
SOCIAL WORK INFORMANT: NURSESAMPSON REASON FOR REFERRAL: ED CARE PLAN MET WITH PATIENT IN ROOM. INTRODUCED ROLE AND REASON FOR REFERRAL. INFORMED PATIENT HAS BEEN APPROVED FOR A CARE PLAN THAT WILL BE TYPED OUT AND MAILED TO HER FOR COORDINATION OF HEALTH CARE SERVICES. DISCUSSED PATIENT'S FREQUENT VISITS AND PHYSICIAN'S CONCERNS WITH OARRS. INFORMED PATIENT WOULD NOT BE GIVEN OPIATES UNLESS SUCH MEDICATION WAS NEEDED FOR ACUTE OR VERIFIABLE PAIN. PATIENT VERBALIZED UNDERSTANDING. PATIENT REPORTS HAS NOT HAD HEALTH INSURANCE IN 6 MONTHS AND IS OVER INCOME FOR MEDICAID. PATIENT WORKS AT [employer] AT [employer] IN [place], [place] AND IS AWAITING OPEN ENROLLMENT FOR HEALTH INSURANCE. PATIENT LIVES IN [place]. INQUIRED WHY PATIENT IS IN [place]. PATIENT IS VISITING HER MOTHER. PATIENT ADMITS TO HISTORY OF DEPRESSION AND STATES IS TREATED WITH MEDICATION. PATIENT REPORTS PRIMARY CARE DOCTOR IS HIREN LEVINE. PATIENT ADMITS TO ALCOHOL ABUSE AND STATES LAST CONSUMED ALCOHOL 1-2 DAYS AGO. PATIENT NOT OPEN TO TREATMENT OPTIONS OR SERVICES AT THIS TIME. PATIENT REPORTS HAS NOT YET BEEN SEEN BY PHYSICIAN. INFORMED PHYSICIAN WOULD BE IN SHORTLY. THIS WORKER TO REMAIN AVAILABLE. PLAN: HOME BEFORE, ELIJAH BOWEN, [employer], [employer] OFFICER SUPERVISOR.
--- NOTE | 2019-07-14 15:07 | ED.DCSUM_ITS ---
History of Present Illness Chief Complaint: Abd Pain Informant: Patient - Abdominal Pain/Flank Pain Onset: Hours - 12 Context: Sudden Onset - woke her up from sleep Timing: Continuous Quality: Aching Location: Epigastric, RUQ Current Severity: Severe Maximum Severity: Severe Worsened by: Food - and alcohol that she drank 2d ago Relieved by: Nothing - Nausea/Vomiting/Emesis GI Symptom: Nausea, Vomiting Quality: Negative for: Blood streaks, Coffee ground, Hematemesis Severity: Severe - now just dry-heaving - Diarrhea/Melena/Hematochezia GI Symptom: Diarrhea. Negative for: Melena, Hematochezia Stool Quality: Loose Severity: Mild Associated Symptoms: Negative for: Dysuria, Frequency, Hematuria, Urgency Narrative: Patient has a history of pancreatitis and feels like she is having recurrent pain. Started earlier this morning. States she drank alcohol 1 or 2 days ago, has a history of alcohol abuse but does not drink daily. She states she can go weeks without drinking that time. She has had the same pain with prior acute pancreatitis attacks. States she does not have any antinausea medications at home to try so she used Pepto but it did not help and she proceeded to vomit. - Past Medical History (1) Alcoholic pancreatitis Status: Chronic (2) Alcoholism Status: Chronic (3) Depression Status: Chronic Past Medical History - Allergies and Home Meds Allergies/Adverse Reactions: Allergies ketorolac [From Toradol] Allergy (Verified 07/14/19 13:56) Itching valacyclovir Allergy (Verified 07/14/19 13:56) Itching Primary Care Physician: Vanessa Abernathy DO [Primary Care Provider] - Surgical History: - - Abdominal laparoscopy Smoking Status: Current every day smoker Alcohol: Occasional Review of Systems General: Reports: Malaise. Denies: Chills, Fever, Sweats Eyes: Denies: Visual changes - bilaterally, Diplopia ENT: Denies: Rhinorrhea, Sore throat Cardiovascular: Denies: Chest pain, Palpitations Respiratory: Denies: Dyspnea, Cough, Dyspnea on exertion Gastrointestinal: Reports: Abdominal pain, Nausea, Vomiting, Diarrhea. Denies: Melena, Hematochezia Genitourinary: Denies: Dysuria, Hematuria, Frequency Musculoskeletal: Denies: Neck pain, Back pain, Extremity Pain Skin: Denies: Rash, Wounds Neurological: Denies: Headache, Weakness, Numbness Physical Exam Vital Signs/Narrative: Vital Signs Temp Pulse Resp BP Pulse Ox 07/14/19 13:54 97.9 F 102 H 16 134/92 H 100 Inital Vital Signs reviewed: Yes General: Well nourished, Well developed, No Acute Distress Head: Normocephalic, Atraumatic Eyes: Perrl, EOMI ENT: Moist mucous membranes, No rhinorrhea Neck: Supple, Nontender Cardiovascular: Regular rate, Regular rhythm, No murmurs Respiratory: No distress, CTA bilaterally, Chest nontender Abdomen: Soft, Nondistended, Normal bowel sounds, No masses, Tender - epigast and RUQ. Negative for: Guarding, Rebound tenderness Back: Nontender, Normal Inspection Extremities: Nontender, No edema Skin: Normal color, No rash Neurological: Alert, Oriented x3, Cranial nerves II-XII grossly intact, Normal Strength, Normal Sensation Psychological: Normal affect, Normal Mood Diagnostic/Tx/Re-eval Laboratory Tests 07/14/19 Range/Units 15:25 Total Bilirubin 0.30 (0.20-1.00) mg/dL Direct Bilirubin 0.08 (0.00-0.30) mg/dL AST 41 H (15-37) U/L ALT 31 (13-56) U/L Alkaline Phosphatase 67 (45-117) U/L Total Protein 7.7 (6.4-8.2) g/dL Albumin 4.2 (3.2-5.0) g/dL Globulin 3.5 (2.2-4.2) g/dL Lipase 99 (73-393) U/L - Medical Decision Making I repeated her LFTs and lipase. They are normal with a lipase of 99. Patient is reassured. She was initially given IV fluids, Phenergan, Bentyl. She has a newly approved care plan given her history of non-verifiable abdominal pain here although she has had positive lipases in the past, which she did last month. Her care plan does not allow us to treat her with IV narcotics or synthetic opioids unless she has acute verifiable pain. This is recurrence of her chronic pain. She will be offered a GI cocktail prior to discharge. We also had a discussion about avoiding alcohol. I asked her if she felt like she needed a referral to rehabilitation/addiction services, given that she feels the need to use alcohol despite knowing it tends to trigger pancreas symptoms. She stated no. It was a pleasant conversation and professional. She will be discharged, a dvised to stick with a liquid diet for 48 hours. She will be prescribed antinausea medication as well. ED Disposition - Plan for ED Patient: Disposition: Home or Assisted Living Diagnosis: Upper abdominal pain, unspecified Instructions: ABDOMINAL PAIN, Unknown Cause, (Female) Prescriptions: Ondansetron [Zofran] 8 mg PO Q8H PRN PRN #12 tab PRN Reason: Nausea Prescription Printed Referrals: Vanessa Abernathy DO [Primary Care Provider] - 3-5 Days if not improving
[2019-07-14] MEDS: proMETHazine 25 MG/ML Syringe 12.5 MG IV (15:42)
[2019-07-14] MEDS: Dicyclomine 20 MG/2 ML Vial IM (15:42)
[2019-07-14 16:13] LABS: AST(SGOT) 41 U/L (15-37); Alanine Aminotransfer ALT/SGPT 31 U/L (13-56); Albumin, Serum 4.2 g/dL (3.2-5.0); Alkaline Phosphatase 67 U/L (45-117); Bilirubin, Direct 0.08 mg/dL (0.00-0.30); Globulin 3.5 g/dL (2.2-4.2); Lipase 99 U/L (73-393); Protein, Total 7.7 g/dL (6.4-8.2)
[2019-07-14 16:53] VITALS: BP 119/65; PULSE 79; RESP 14; O2SAT 100
--- NOTE | 2019-07-14 16:56 | ED.RN ---
RN AT BEDSIDE TO GIVE GI COCKTAIL. PATIENT REFUSED STATING SHE CAN NOT TOLERATE IT.
--- NOTE | 2019-07-27 13:19 | CM.ED ---
SOCIAL WORK COPY OF ED CARE PLAN MAILED TO PATIENT VIA CERTIFIED MAIL. DR. LEVINE'S OFFICE CALLED AND UPDATED ON ED CARE PLAN. FAX NUMBER OBTAINED. LETTER TO DR. LEVINE AND COPY OF ED CARE PLAN FAXED AT THIS TIME. Gita BOWEN, SENIOR STATISTICIAN, MASTER TAX ADVISOR.
== END 2019-07-14 16:57 | disposition home or self-care (01) ==
PROVIDERS: Emergency Provider Emergency Medicine
DX: R10.13 Epigastric pain (principal); R10.11 Right upper quadrant pain; F32.9 Major depressive disorder, single episode, unspecified; F10.20 Alcohol dependence, uncomplicated; Y90.9 Presence of alcohol in blood, level not specified; F17.200 Nicotine dependence, unspecified, uncomplicated
CPT/HCPCS: 80076; 83690; 96361; 96372; 96374; 99284; J7040; A4216

== ENCOUNTER 2019-09-25 00:27 | Emergency (ER) | payer MEDICAID, SELFPAY ==
[2019-09-25 00:28] VITALS: BP 161/102; PULSE 95; RESP 16; TEMP 36.8; O2SAT 100; BMI 18.3
[2019-09-25 00:30] VITALS: BP 146/92
--- NOTE | 2019-09-25 01:05 | ED.DCSUM_ITS ---
- ER Visit Summary Date of Service: 09/25/19 Chief Complaint: [Abdominal pain] History of Present Illness: The patient is a 39 F [presents to the emergency department complaint of abdominal pain that she is had for about 2 days. Patient describes it as epigastric and radiating through to her back. Patient has history of pancreatitis. Patient states that she had blood work done yesterday and her lipase was 500. Patient initially had nausea and vomiting but now just mostly dry heaves. She denies any diarrhea. She denies any blood in her stool or black tarry stools. She denies any fever. She denies urinary symptoms. Patient has been seen in this emergency department multiple times for the same complaint and currently has a care plan as far as no narcotics unless there is identifiable cause for pain. Patient is well aware of her care plan and understands. History of alcohol abuse but states she has not drank alcohol in over 5 months. She denies any illicit drug use. Patient is a smoker. Patient has history of prior hysterectomy.] Physical Examination: [HEENT-PERRLA, EOMI. Cranial nerves II through XII grossly intact. TMs clear. Mucous membranes moist. No adenopathy. Cardiovascular-regular rate and rhythm without murmur or ectopy Lungs-clear to auscultation, chest wall stable without crepitus or subcu emphysema Abdomen-normoactive bowel sounds, soft. Patient has tenderness to palpation over the epigastric region with guarding. There is no rebound, rigidity, or perineal signs. Extremities-intact ?4, normal range of motion, normal pulses, atraumatic] Test Results: [Urinalysis was unremarkable other than some microscopic blood. CBC with differential, LFTs, lipase also ordered however blood draw was difficult and patient left prior to treatment completion.] Emergency Department Course and Treatment: [Patient was ordered Phenergan on arrival. Patient was ordered an IV with a liter mostly fluid bolus ordered.] Treatment Plan: [Patient left the department prior to treatment completion. I was informed that the patient walked out of the department telling the nurse that it was taking too long and her was mad at her so she decided to leave. I was not informed that she was leaving until after she had left the department.] Disposition: [Left prior to treatment completion] Impression: [Abdominal pain-etiology uncertain Left prior to treatment completion] This note was generated with [employer] software. It may contain incorrect words, spelling, and punctuation that were not noted in review of the chart prior to signing ED Disposition - Plan for ED Patient: Referrals: Vanessa Abernathy DO [Primary Care Provider] -
[2019-09-25 01:06] LABS: Mucous, Urine 0 SEEN /hpf (<or=2+); White Blood Cells 0 SEEN /hpf (0-5)
[2019-09-25 01:11] LABS: Color, Urine Yellow (Yellow); Glucose, Dipstick Normal (Normal); Ketone-Dipstick Negative (Negative); Leukocyte Esterase-Dipstick Negative /ul (Negative); Nitrite-Dipstick Negative (Negative); Occult Blood-Urine 50 /ul (Negative); Protein-Dipstick Negative (Negative); Urine Bilirubin Dipstick Negative (Negative); Urine Clarity Clear (Clear); Urine Urobilinogen Normal (Normal)
[2019-09-25 01:17] LABS: Bacteria RARE /hpf (None Seen); Red Blood Cells-Urine 5-10 SEEN /hpf (0-5); Squamous Epithelial Cells - UA 0-5 SEEN /hpf (5-10)
--- NOTE | 2019-09-25 01:38 | ED.RN ---
THIS RN WENT IN TO DRAW LABS, WALKING INTO THE ROOM THE PT WAS WALKING OUT OF THE ROOM, STATED MY IS MAD, IT IS TAKING TOO LONG SO I AM LEAVING. AND SHE LEFT.
== END 2019-09-25 01:40 | disposition home or self-care (01) ==
PROVIDERS: Emergency Provider Emergency Medicine
DX: R10.13 Epigastric pain (principal); F32.9 Major depressive disorder, single episode, unspecified; F17.200 Nicotine dependence, unspecified, uncomplicated; Z90.710 Acquired absence of both cervix and uterus
CPT/HCPCS: 81001; 99282; J7030; A4216